=== PATIENT | female | born 1975 | race Caucasian/White ===

== ENCOUNTER → 2017-06-27 10:28 | Outpatient (CLI) | payer SELFPAY ==
[2017-06-27 11:35] LABS: Carbamazepine (Tegretol) 8.5 ug/mL (4.0-12.0); Phenytoin (Dilantin) Level 27.5 mL (10.0-20.0)
== END ==
PROVIDERS: Visit Provider Otolaryngology Otolaryngology/Facial Plastic Surgery
DX: Z01.812 Encounter for preprocedural laboratory examination (principal)
CPT/HCPCS: 36415; 80156; 80185

== ENCOUNTER → 2022-11-07 | Outpatient (CLI) | payer OTHER, SELFPAY ==
[2022-11-07 14:46] LABS: Absolute Neutrophil Count 2.9 X10^3/uL (2.0-7.7); Basophil# 0.03 X10^3/uL; Basophil% 0.6 % (0-1); Eosinophil# 0.03 X10^3/uL; Eosinophils% 0.6 % (0-5); Hematocrit 24.4 % (37-47); Hemoglobin 6.9 g/dL (12.0-15.0); Lymphocyte % 32.5 % (19-41); Mean Corp Hgb Conc 28.3 g/dL (32-36); Mean Corpuscular Volume 70.7 fL (81-99); Mean Platelet Vol. 10.1 fl (6.2-12.0); Monocyte# 0.31 X10^3/uL; Monocyte% 6.3 % (0-10); NRBC Flagged by Analyzer 0 % (0-5); Neutrophil # 2.94 X10^3/uL (2.7-7.7); Neutrophil % 59.6 % (47-70); Platelet Count 369 K/mm3 (150-450); RBC Distribution Width CV 17.4 % (11.6-14.6); RBC Distribution Width SD 43.9 fl (35.1-43.9); Red Blood Count 3.45 M/mm3 (4.2-5.4); White Blood Count 4.9 K/mm3 (4.4-11.0)
[2022-11-07 15:20] LABS: Estradiol 53.1 pg/mL; Follicle Stimulating Hormone 11.4 mIU/mL; Luteinizing Hormone 6.9 mIU/mL; Prolactin 6.6 ng/mL; T4 Free Direct 0.73 ng/dL (0.76-1.46)
[2022-11-07 15:24] LABS: hCG Titer Quant., Serum < 1 mIU/mL (1-3)
[2022-11-07 16:40] LABS: Ferritin 11 ng/mL (8-252)
== END | disposition home or self-care (01) ==
LOC: WOBLAB 13:55
PROVIDERS: Visit Provider Nurse Practitioner Women's Health
DX: N93.9 Abnormal uterine and vaginal bleeding, unspecified (principal)
CPT/HCPCS: 36415; 82670; 82728; 83001; 83002; 84146; 84439; 84443; 84702; 85025

== ENCOUNTER → 2024-11-30 | Outpatient (CLI) | payer OTHER, SELFPAY ==
--- OUTSIDE RECORDS SUMMARY | 2024-11-30 10:49 | XMS RPT_ITS | CCD ---
Author Organization [facility] Care Team Providers Care Asset Protection Manager Name Role Phone Yovanny Ct Attending Unavailable EDY PHELPS, DR ORLANDO Roberts Primary Care Unavailjeff LARA MD, PATEL Attending Unavailable EDY PHELPS, DR ORLANDO Roberts Primary Care Unavailjeff LARA MD, PATEL Attending Unavailable EDY PHELPS, DR ORLANDO Roberts Primary Care Unavailjeff HAYDEN MD, MIKA Consulting Unavailable MARCO PHELPS, PATEL Attending Unavailable MARCO PHELPS, PATEL Admitting Unavailable ORLANDO SNOW MD Unavailable ADAMA SNOW MD Unavailable Christian RN, Jagruti Unavailable Unavaila ble Winter KOROMA, Reina Unavailable Unavailable Letitia Perez Unavailable Unavailable JOSSELIN ADAME-KACEY Bryan Unavailable [phone] CONNOR KOROMA, CASSIE Unavailable Unavaila ble Unavailable Unavailable LUCILA JULIEN Primary Care Unavailable LUCILA JULIEN Attending Unavailable LUCILA JULIEN Admitting Unavailable [place] SHANNA, Regine Unavailable Unavailable JOSSELIN ADAME-KACEY Bryan Unavailable Unav ailable SNOW, ORLANDO T Primary Care Unavailable SNOW, ORLANDO T Consulting Unavailable SNOW, ORLANDO T Attending Unavailable SNOW, ORLANDO T Admitting Unavailable PROVIDER, UNKNOWN Consulting Unavailable PROVIDER, UNKNOWN Consulting Unavailable PROVIDER, UNKNOWN Consulting Unavailable BABAK ROLAND Primary Care Unavailable SNOW, ORLANDO T Consulting Unavailable MELQUIADES ROLANDY Admitting Unavailable BABAK ROLAND Attending Unavailable PROVIDER, UNKNOWN Consulting Unavailable PROVIDER, UNKNOWN Consulting Unavailable PROVIDER, UNKNOWN Consulting Unavailable ABDOUL FRENCH Primary Care Unavailable ABDOUL FRENCH Attending Unavailable SNOW, ORLANDO T Consulting Unavailable ABDOUL FRENCH Admitting Unavailable PROVIDER, UNKNOWN Consulting Unavailable PROVIDER, UNKNOWN Consulting Unavailable PROVIDER, UNKNOWN Consulting Unavailable BELINDA WILSON CNP Admitting Unavailab le BELINDA WILSON INSURANCE UNDERWRITING ASSISTANT Attending Unavailab le SNOW, ORLANDO T Consulting Unavailable BELINDA WILSON CNP Primary Care Unavailab le PROVIDER, UNKNOWN Consulting Unavailable PROVIDER, UNKNOWN Consulting Unavailable PROVIDER, UNKNOWN Consulting Unavailable ABDOUL FRENCH Attending Unavailable ABDOUL FRENCH Admitting Unavailable SNOW, ORLANDO T Consulting Unavailable ABDOUL FRENCH Primary Care Unavailable PROVIDER, UNKNOWN Consulting Unavailable PROVIDER, UNKNOWN Consulting Unavailable PROVIDER, UNKNOWN Consulting Unavailable ABDOUL FRENCH Primary Care Unavailable ABDOUL FRENCH Attending Unavailable SNOW, ORLANDO T Consulting Unavailable ABDOUL FRENCH Admitting Unavailable PROVIDER, UNKNOWN Consulting Unavailable PROVIDER, UNKNOWN Consulting Unavailable PROVIDER, UNKNOWN Consulting Unavailable ABDOUL FRENCH Primary Care Unavailable ABDOUL FRENCH Attending Unavailable SNOW, ORLANDO T Consulting Unavailable ABDOUL FRENCH Admitting Unavailable PROVIDER, UNKNOWN Consulting Unavailable PROVIDER, UNKNOWN Consulting Unavailable PROVIDER, UNKNOWN Consulting Unavailable BERTHAANITABELINDA DELCID INSURANCE UNDERWRITING ASSISTANT Attending Unavailab le STEVE, BELINDA GRIGGS Primary Care Unavailab le BELINDA WILSON CNP Admitting Unavailab le SNOW, ORLANDO T Consulting Unavailable PROVIDER, UNKNOWN Consulting Unavailable PROVIDER, UNKNOWN Consulting Unavailable PROVIDER, UNKNOWN Consulting Unavailable LUCILA JULIEN Attending Unavailable LUCILA JULIEN Admitting Unavailable SNOW, ORLANDO T Consulting Unavailable SNOW, ORLANDO T Referring Unavailable LUCILA JULIEN Primary Care Unavailable PROVIDER, UNKNOWN Consulting Unavailable PROVIDER, UNKNOWN Consulting Unavailable PROVIDER, UNKNOWN Consulting Unavailable LOLI PHELPS, BIJAN Denise Unavailable [phone] Boaz Baker MD Attending Provider Dr. Orlando Snow MD Primary Care Provider Dr. Boaz Baker MD Referring Provider [phone] Medications Current Medications Medication Drug Class(es) Dates Sig (Normalized) Sig (Original) carBAMazepine 200 mg oral tablet (17 sources) Mood Stabilizer Start: 11-30-2024 take 4 tablets by mouth in the evening Carbamazepine 200 mg tablet Active 200 mg PO .COMPLEX November 30, 2024 12:00am 200 mg orally 3 tablets (600mg) in the morning and 4 tablets (800mg) in the evening; Start: 07-09-2024 TegretoL 200 m g tablet ; 3 (three) tablet two times daily for 60 days Quantity: 360 {Tablet} Refills: 2 Ordered: 09-Jul-2024 MD ORLANDO SNOW Start: 09-Jul-2024 Comments: generic take 3 tablets by [facility] twice daily TEGretol 200 MG Oral Tablet ; 600mg two times daily (200 MG) Comment on above: generic cholecalciferol 0.01 mg oral tablet (16 sources) Vitamin D Vitamin D3 10 mc g (400 unit) tablet ; (10 mcg (400 unit)) ferrous sulfate 325 mg oral tablet (17 sources) Start: 11-30-2024 take 1 tablet by mouth once daily Ferrous Sulfate (Ferosul) 325 mg (65 mg iron) tablet Active 325 mg PO daily November 30, 2024 12:00am Start: 05-12-2024 ferrous sulfat e 325 mg (65 mg iron) tablet ; 1 Tablet daily for 90 days Quantity: 90 {Tablet} Refills: 3 Ordered: 12-May-2024 MD ORLANDO SNOW Start: 12-May-2024 Start: 11-14-2023 ferrous sulfat e 325 mg (65 mg iron) tablet ; 1 Tablet daily for 90 days Quantity: 90 {Tablet} Refills: 2 Ordered: 14-Nov-2023 MD ORLANDO SNOW Start: 14-Nov-2023 Start: 05-09-2023 ferrous sulfat e 325 mg (65 mg iron) tablet ; 1 Tablet daily for 90 days Quantity: 90 {Tablet} Refills: 2 Ordered: 09-May-2023 MD ORLANDO SNOW Start: 09-May-2023 phenytoin sodium 100 mg extended release oral capsule (17 sources) Anti-epileptic Agent Start: 11-30-2024 take 3 tablets by mouth in the evening Phenytoin Sodium Extended 100 mg capsule Active 100 mg PO .COMPLEX November 30, 2024 12:00am 100 mg orally 2 tablets (200mg) in the morning and 3 tablets (300mg) in the evening; Start: 07-09-2024 Dilantin Exten ded 100 mg capsule ; 2 (two) capsule in am and 3 caps in at hs for 60 days Quantity: 300 {Capsule} Refills: 2 Ordered: 09-Jul-2024 MD ORLANDO SNOW Start: 09-Jul-2024 Comments: generic. take 3 capsules by m outh twice daily Dilantin 100 MG Oral Capsule ; 300mg two times daily (100 MG) Comment on above: generic. vitamin b12 0.1 mg oral tablet (16 sources) Vitamin B12 take 1 tablet by cat th once daily Vitamin B12 100 MCG Oral Tablet ; 1 daily (100 MCG) Completed/Discontinued Medications Medication Drug Class(es) Dates Sig (Normalized) Sig (Original) azithromycin 250 mg oral tablet (16 sources) Macrolide Antimicrobial Start: 03-19-2022 End: 03-24-2022 Azithromycin 250 MG Oral Tablet ; 2 (two) Tablet on day one, then 1 tablet daily for 4 days for 5 days Quantity: 6 {Tablet} Refills: 0 Ordered: 29-May-2022 KARY SCHWAB Start: 19-Mar-2022 End: 24-Mar-2022 Status: Inactive predniSONE 20 mg oral tablet (16 sources) Start: 03-19-2022 End: 03-23-2022 take 1 tablet by mouth once daily predniSONE 20 MG Oral Tablet ; 1 (one) Tablet daily for 4 days Quantity: 4 {Tablet} Refills: 0 Ordered: 29-May-2022 KARY SCHWAB Start: 19-Mar-2022 End: 23-Mar-2022 Status: Inactive promethazine hydrochloride 1.25 mg/ml oral solution (16 sources) Phenothiazine Start: 03-19-2022 End: 03-26-2022 take 5 mL by mouth four times daily as needed Promethazine HCl 6.25 MG/5ML Oral Syrup ; 5 Milliliter four times daily, as needed for 7 days Quantity: 140 {Milliliter} Refills: 0 Ordered: 29-May-2022 KARY SCHWAB Start: 19-Mar-2022 End: 26-Mar-2022 Status: Inactive Comments: Medication taken as needed. Comment on above: Medication taken as needed. Problems Active Problems Problem Classification Problem Date Documented Da te Episodic/Chronic Deficiency and other anemia (20 sources) Anemia; Translations: [Anemia, unspecified] 05-09-2023 Episodic Deficiency and other anemia (20 sources) Deficiency and other anemia 05-09-2023 Developmental disorders (1 source) Unspecified intellectual disabilities; Translations: [Unspecified intellectual disabilities] Onset: 08-30-2023 Chronic Epilepsy; convulsions (20 sources) Seizure disorder; Translations: [Epilepsy, unspecified, not intractable, without status epilepticus] Onset: 11-30-2023 05-09-2023 Chronic Fluid and electrolyte disorders (20 sources) Hypokalemia; Translations: [Hypokalemia] 05-29-2022 Episodic Other aftercare (20 sources) Post-discharge follow-up; Translations: [Encounter for follow-up examination after completed treatment for conditions other than malignant neoplasm] 11-15-2022 Episodic Other female genital disorders (1 source) Abnormal uterine and vaginal bleeding, unspecified; Translations: [Abnormal uterine and vaginal bleeding, unspecified] Onset: 11-09-2022 Chronic Other non-traumatic joint disorders (20 sources) Pain in right knee; Translations: [Pain in joint, lower leg] 05-12-2024 Episodic Other upper respiratory infections (20 sources) Upper respiratory infection; Translations: [Acute upper respiratory infection, unspecified] 03-19-2022 Episodic Unclassified (7 sources) [ADDITIONAL REASON] Knee pain - The onset of the knee pain has been acute and has been occurring in an intermittent pattern for 1 week. The knee pain involves the right knee. Note for Knee pain: pt was walking up stairs in the snow and has knee pain. 05-12-2024 Unclassified (3 sources) Knee pain - The onset of the knee pain has been acute and has been occurring in an intermittent pattern for 1 week. The knee pain involves the right knee. Note for Knee pain: pt was walking up stairs in the snow and has knee pain. 05-12-2024 Unclassified (6 sources) !Patient notification of lab results - Dr. Snow. The test(s) that you had done were/was a MRI (This shows that Luis A tore her ACL. I recommend she see a specialist. We will set up a referral for her in [place]). You should call our office if you have any questions. 05-30-2024 Past or Other Problems Problem Classification Problem Date Documented Date Episodic/Chronic Headache; including migraine (16 sources) Headache; including migraine 03-19-2022 Other aftercare (1 source) Other [facility] (current) drug therapy; Translations: [Other [facility] (current) drug therapy] Onset: 11-30-2023 Episodic Other nutritional; endocrine; and metabolic disorders (1 source) Unspecified lack of expected normal physiological development in childhood; Translations: [Unspecified lack of expected normal physiological development in childhood] Onset: 08-30-2023 Episodic Unclassified (10 sources) Seizure Disorder, Adult - The last clinic visit was 6 month(s) ago. Note for Seizure disorder: doing well. C/O dry mouth since hysterectomy in October. 05-09-2023 Unclassified (11 sources) Follow-up after Hospitalization - The diagnosis of abnormal uterine bleeding, uterus fibroid, and hysterectomy. Note for Follow-up after Hospitalization: Pt was admitted to [facility] on 11/07/22 and transferred to [facility] on 11/09/22. She had hysterectomy surgery on 11/10/22 and then discharged home. Pt is feeling good, but tired. Pt is following up at [place] on 11/26/22. No med changes. She is on some pain meds. [employer] horticulture professor noted labs showed hypothyroidism and recommended following up with family doctor. 11-15-2022 Unclassified (11 sources) [ADDITIONAL REASON] Transition into care - The patient is transitioning into care from a hospital and a summary of care was reviewed. 11-15-2022 Unclassified (16 sources) !Patient notification of lab results - Dr. Snow. The test(s) that you had done were/was blood work (Your blood count is stable since we last checked it in October, but there is still significant iron deficiency anemia present. I recommend taking two of your iron pills each day. (Hemoglobin was 8.8 last time and is now 9.0 - normal is 12. It was 5.6 when you were admitted to the hospital). Your other blood work looks ok.). You should call our office if you have any questions. 05-31-2022 Unclassified (16 sources) Weakness - Note for Weakness: Mother would like pt's blood count checked. Pt had a low Hgb last summer and had to have a blood transfusion. Pt seems lightheaded at times. 05-29-2022 Unclassified (7 sources) Seizure Disorder, Adult - Typical seizure symptoms include generalized motor seizure. Typical associated symptoms include altered mental status, while typical associated symptoms do not include bladder incontinence, bowel incontinence or amnesia for the seizure event. The seizures last for 2 minutes. The most recent seizure occurred month(s) ago (months ago. last 6 months have been good). Current treatment includes phenytoin (Dilantin). Note for Seizure disorder: Patient sees Neurologist 11/22/23 11-14-2023 Unclassified (6 sources) [ADDITIONAL REASON] Seizure Disorder, Adult - The last clinic visit was 6 month(s) ago. Note for Seizure disorder: doing well. C/O dry mouth since hysterectomy in October. 05-09-2023 Unclassified (5 sources) Transition into care - The patient is transitioning into care from a hospital and a summary of care was reviewed. 11-15-2022 Unclassified (5 sources) [ADDITIONAL REASON] Follow-up after Hospitalization - The diagnosis of abnormal uterine bleeding, uterus fibroid, and hysterectomy. Note for Follow-up after Hospitalization: Pt was admitted to [facility] on 11/07/22 and transferred to [facility] on 11/09/22. She had hysterectomy surgery on 11/10/22 and then discharged home. Pt is feeling good, but tired. Pt is following up at [place] on 11/26/22. No med changes. She is on some pain meds. [employer] horticulture professor noted labs showed hypothyroidism and recommended following up with family doctor. 11-15-2022 Unclassified (6 sources) [ADDITIONAL REASON] Seizure Disorder, Adult - Typical seizure symptoms include generalized motor seizure. Typical associated symptoms include altered mental status, while typical associated symptoms do not include bladder incontinence, bowel incontinence or amnesia for the seizure event. The seizures last for 2 minutes. The most recent seizure occurred month(s) ago (months ago. last 6 months have been good). Current treatment includes phenytoin (Dilantin). Note for Seizure disorder: Patient sees Neurologist 11/22/23 11-14-2023 Results Test Name Value Interpretation Reference Range Facility MR SHARATH AYALA RTon 05-21-2024 MR SHARATH AYALA RT [address] [address] Patient: LUIS A BASSETT Phone#: : [phone] Age: 48 Gender: F Pt. Type: Out Account: [id number] Location: 052 Ordering: ORLANDO SNOW Exam Date: 05/21/2024/10:06 Family Phys: Charge Code: [id number] Physician: Woods Order #: [id number] Dose#: PROCEDURE: MRI KNEE RT WITHOUT CONTRAST COMPARISON: None. INDICATIONS: Right knee pain TECHNIQUE: A complete multi-planar MRI was performed. FINDINGS: MEDIAL COMPARTMENT MEDIAL MENISCUS: Normal. No visible tear or significant degeneration. HYALINE CARTILAGE: Normal. No visible defect. BONES: Marrow edema of the posterior medial tibial plateau. There is no evidence of fracture. MCL AND MEDIAL CAPSULE: Abnormal signal and waviness of the posterior capsule consistent with tear. Abnormal signal posteriorly and medial to the gastrocnemius muscle raises possibility of rupture of popliteal cyst. LATERAL COMPARTMENT LATERAL MENISCUS: Normal. No visible tear or significant degeneration. HYALINE CARTILAGE: Normal. No visible defect. BONES: Normal. No marrow pathology, fracture, or significant arthropathy. LCL/POSTEROLAT. COMPLEX: Normal lateral collateral ligament, fascicles, lateral capsule and ligaments. ACL: There is thickening and abnormal signal the ACL particularly at the femoral attachment consistent with interstitial tear. PCL: Normal appearing ligament. MENISCOFEMORAL: Normal meniscofemoral ligaments. PATELLOFEMORAL: There is narrowing of the lateral patellofemoral joint. There is mild lateral subluxation. EFFUSION: Small joint effusion is present. OTHER: Negative. CONCLUSION: 1. There is marrow edema the posterior medial tibial plateau. Acute fracture is not visualized. 2. Interstitial tear of the ACL. 3. Abnormal signal medial to the gastrocnemius muscle, medial head suspicious for popliteal rupture. [place] [id number] Patient: LUIS A BASSETT Phone#: : [phone] Age: 48 Gender: F Pt. Type: Out Account: [id number] Location: 052 Ordering: ORLANDO SNOW Exam Date: 05/21/2024/10:06 Family Phys: Charge Code: [id number] Physician: Woods Order #: [id number] Dose#: Dictated by: Sameera Phillips MD on 05/22/2024 at 16:49 Approved by: Sameera Phillips MD on 05/22/2024 at 16:59 Normal [facility] Laboratory - Drug toxicology on 05-05-2024 carBAMazepine [Mass/Vol] 6.5 ug/ml Normal 4.0 - 12.0 ug/ml [facility], [facility].; [facility] Work Phone: TEGRETOL (CARBAMAZEPINE); TO [place] 05-05-2024 TEGRETOL 6.5 ug/ml Normal 4.0 - 12.0 [facility] Comment on above: Performed By: #### 2 [id number] #### [facility],[address] [place] [address] Laboratory - Drug toxicology on 11-30-2023 carBAMazepine [Mass/Vol] 3.9 ug/ml Abnormal 4.0 - 12.0 ug/ml [facility], [facility].; [facility] Work Phone: TEGRETOL (CARBAMAZEPINE); TO [place] 11-30-2023 TEGRETOL 3.9 ug/ml Low 4.0 - 12.0 [facility] Comment on above: Performed By: #### 2 [id number] #### [facility],[address] [place] [address] CBC + DIFFon 10-11-2023 ATY LYMP 0 % Normal [facility], [facility].; [facility] Work Phone: Comment on above: Performed By: #### 2 [id number] #### [facility],[address] [place], [place] [id number] BANDS 0 % Normal 0 - 5 % [facility] Work Phone: Comment on above: Performed By: #### 2 [id number] #### [facility],[address] [place], [place] [id number] Baso # 0.01 x10EE3/UL Normal 0.00 - 0.10 [facility] Comment on above: Performed By: #### 2 [id number] #### [facility],[address] [place], [place] [id number] Basophils/100 WBC (Bld) 0.3 % Normal 0.0 - 2.0 % [facility] Work Phone: Comment on above: Performed By: #### 2 [id number] #### [facility],[address] [place], [place] [id number] Basophils/100 WBC (Bld) 0.0 % Normal 0.0 - 2.0 % [facility] Work Phone: Comment on above: Performed By: #### 2 [id number] #### [facility],[address] [place] [id number] CBC + DIFF Normal [facility] Comment on above: Result Comment: CORRECTED REPORT CBC-COMPLETE BLOOD COUNT Performed By: #### 2 [id number] #### [facility],[address] [place] [id number] CELL COUNT 100 Normal [facility] Work Phone: Comment on above: Performed By: #### 2 [id number] #### [facility],[address] [place] [id number] EO 0.0 % Normal 0.0 - 4.0 % [facility] Work Phone: Comment on above: Performed By: #### 2 [id number] #### [facility],[address] [place] [id number] EO # 0.07 x10EE3/UL Normal 0.00 - 0.50 [facility] Comment on above: Performed By: #### 2 [id number] #### [facility],[address] [place], [place] [id number] Eosinophils/100 WBC (Bld) 1.6 % Normal 0.0 - 7.0 % [facility], [facility].; [facility] Work Phone: Comment on above: Performed By: #### 2 [id number] #### [facility],[address] [place] [address] ERROR DUE TO MANUAL DIFF Normal [facility] Work Phone: Comment on above: Performed By: #### 2 [id number] #### [place] [phone] Erythrocyte distribution width (RBC) [Ratio] 16.6 % Abnormal 12.0 - 15.6 % [facility] Work Phone: Comment on above: Performed By: #### 2 [id number] #### [place] [id number] Hematocrit (Bld) [Volume fraction] 34.4 % Normal 34.0 - 46.0 % [facility] [employer] [facility] Work Phone: Comment on above: Performed By: #### 2 89953 #### [place] [phone] Hemoglobin (Bld) [Mass/Vol] 10.7 g/dL Abnormal 12.0 - 16.0 g/dL [facility] [place] [facility] Work Phone: Comment on above: Performed By: #### 2 [id number] #### [facility],[address] [place] [address] Lymph # 1.29 x10EE3/UL Normal 0.80 - 2.80 [facility] Comment on above: Performed By: #### 2 [id number] #### [facility],[address] [place] [address] Lymphocytes/100 WBC (Bld) 30.5 % Normal 20.0 - 45.0 % [facility] [employer] [facility] [place] - [facility] [employer] [facility] Work Phone: Comment on above: Performed By: #### 2 [id number] #### [facility],[address] [place] [address] Lymphocytes/100 WBC (Bld) 30 % Normal 20 - 40 % [facility] [facility] [employer] [facility] [employer] [facility] Work Phone: Comment on above: Performed By: #### 2 73228 #### [facility],[address] [place] [address] MANUAL DIFF SEE BELOW Normal [facility] [employer] [facility] [place] - [facility] [employer] [facility] Work Phone: Comment on above: Performed By: #### 2 [id number] #### [facility],[address] [place] [address] MCH (RBC) [Entitic mass] 22 pg Abnormal 27 - 33 pg [facility] [employer] [facility] [place] [facility] [employer] [facility] Work Phone: Comment on above: Performed By: #### 2 [id number] #### [facility],[address] [place] [address] MCHC 31 X10 3 Low 32 - 36 [facility] Comment on above: Performed By: #### 2 79926 #### [facility],[address] [place] [address] MCV (RBC) [Entitic vol] 70 fL Abnormal 80 - 99 fL [facility] [employer] [facility] [employer] [place] [facility], [employer]. Work Phone: Comment on above: Performed By: #### 2 81835 #### [facility],[address] [place] [address] META 0 % Normal 0 - 1 % [facility], [employer] [facility] [employer] [facility] Work Phone: Comment on above: Performed By: #### 2 65541 #### [facility],[address] [place] [address] Metamyelocytes/100 WBC (Bld) 0 % Normal [facility] [place] [facility] [employer] [facility], [employer]. Work Phone: Comment on above: Performed By: #### 2 92549 #### [facility],[address] [place] [address] MICROCYTES 2+ Normal [facility] [place] [employer] [facility] [employer] [facility], [employer]. Work Phone: Comment on above: Result Comment: ==== FOLLOWING RESULTS REPORTED IN ERROR LYMPH 3 L <-- *Previously reported in error [id number]. . .M MONOS 0 <-- *Previously reported in error [id number]. . .M Performed By: #### 2 [id number] #### [facility],[address] [place] [address] [place] # 0.24 x10EE3/UL Normal 0.20 - 1.00 [facility] [facility] Comment on above: Performed By: #### 2 [id number] #### [facility],[address] [place] [address] MONOS 3 % Normal 0 - 8 % [facility] Work Phone: Comment on above: Performed By: #### 2 58278 #### [facility],[address] [place] [address] 95088 MONOS % 5.6 % Normal 0.0 - 10.0 [facility] Comment on above: Performed By: #### 2 79032 #### [facility],[address] [place] [address] 09229 Morphology Blake (Bld) [Interp] SEE BELOW Normal [facility] Work Phone: Comment on above: Performed By: #### 2 97958 #### [facility],[address] [place] [address] 59882 Neut # 2.63 x10EE3/UL Normal 1.50 - 7.10 [facility] Comment on above: Performed By: #### 2 16175 #### [facility],[address] [place] [address] 88307 Neutrophils/100 WBC (Bld) 62.0 % Normal 46.0 - 76.0 % [facility] Work Phone: Comment on above: Performed By: #### 2 47677 #### [facility],[address] [place] [address] 53211 NRBC 0 /100 Normal [facility] Work Phone: Comment on above: Performed By: #### 2 46152 #### [facility],[address] [place] [address] 18782 PLATELET 238 x10EE3/UL Normal 150 - 450 [facility] Comment on above: Performed By: #### 2 60781 #### [facility],[address] [place] [address] Platelet mean volume (Bld) [Entitic vol] 9.9 fL Normal 6.6 - 10.5 fL [facility].; [facility], [employer]. Work Phone: Comment on above: Result Comment: AUTO MATED DIFFERENTIAL Performed By: #### 2 79036 #### [facility],[address] [place] [address] PLT EST NORMAL Normal [facility].; [facility] Work Phone: Comment on above: Performed By: #### 2 96781 #### [facility],[address] [place] [address] RBC 4.91 x 10EE6/UL Normal 4.10 - 5.30 [facility] Comment on above: Performed By: #### 2 63563 #### [facility],[address] [place] [address] SEGS 67 % Normal 50 - 70 % [facility].; [facility] Work Phone: Comment on above: Performed By: #### 2 83954 #### [facility],[address] [place] [address] WBC 4.3 x 10EE3/UL Low 4.5 - 10.8 [facility] Comment on above: Performed By: #### 2 64712 #### [facility],[address] [place], [place] [id number] OTHER 0 Normal [facility].; [facility] Work Phone: Comment on above: Performed By: #### 2 47791 #### [facility],[address] [place] [address] CMP with eGFRon 10-11-2023 AGE 47 years Normal [facility] Comment on above: Performed By: #### 2 62875 #### [facility],[address] [place] [address] Albumin [Mass/Vol] 3.5 g/dL Normal 3.4 - 5.0 g/dL [facility], [facility].; [facility] Work Phone: Comment on above: Performed By: #### 2 12788 #### [facility],[address] [place] [address] Albumin/Globulin [Mass ratio] 0.9 {ratio} Normal 0.9 - 1.6 [facility] Comment on above: Performed By: #### 2 12041 #### [facility],[address] [place] [address] ALK PHOS 105 U/L Normal 46 - 116 U/L [facility], [facility].; [facility] Work Phone: Comment on above: Performed By: #### 2 22207 #### [facility],[address] [place] [address] 68111 ALT [Catalytic activity/Vol] 21 U/L Normal 16 - 63 U/L [facility], [facility].; [facility] Work Phone: Comment on above: Performed By: #### 2 03609 #### [facility],[address] [place] [address] 10552 Anion gap [Moles/Vol] 12 mmol/L Normal 10 - 2 0 mmol/L [facility] Work Phone: Comment on above: Performed By: #### 2 03347 #### [facility],[address] [place], [place] [id number] AST [Catalytic activity/Vol] 13 U/L Normal 13 - 39 U/L [facility] Work Phone: Comment on above: Performed By: #### 2 18747 #### [facility],[address] [place] [address] 55323 B/C RATIO 38 ratio High 0 - 30 [facility] Comment on above: Performed By: #### 2 92982 #### [facility],[address] [place] [address] 69172 Bilirubin [Mass/Vol] 0.2 mg/dL Normal 0.2 - 1 .0 mg/dL [facility], [facility].; [facility] Work Phone: Comment on above: Performed By: #### 2 55801 #### [facility],[address] [place] [address] 27051 Calcium [Mass/Vol] 8.6 mg/dL Normal 8.5 - 10. 1 mg/dL [facility], [facility].; [facility] Work Phone: Comment on above: Performed By: #### 2 03028 #### [address] [address] Chloride [Moles/Vol] 109 mmol/L Abnormal 98 - 10 7 mmol/L [facility], [facility].; [facility] Work Phone: Comment on above: Performed By: #### 2 08579 #### [facility],[address] [place] [address] 09707 CMP with eGFR Normal [facility] Comment on above: Result Comment: COMP REHENSIVE METABOLIC PANEL Performed By: #### 2 72490 #### [address] [address] CO2 [Moles/Vol] 25.3 mmol/L Normal 21.0 - 32.0 mmol/L [facility], [facility].; [facility] Work Phone: Comment on above: Performed By: #### 2 32146 #### [facility],[address] [place] [address] 30468 Creatinine [Mass/Vol] 0.48 mg/dL Abnormal 0.55 - 1.02 mg/dL [facility].; [facility], [employer]. Work Phone: Comment on above: Performed By: #### 2 44597 #### [facility],[address] [place], [place] [address] GFR/1.73 sq M.predicted among non-blacks MDRD (S/P/Bld) [Vol rate/Area] mL/min/{1.73_m2} Normal 60 - 999 [facility] Comment on above: Performed By: #### 2 78349 #### [facility],[address] [place], [place] [address] Result Comment: ACCO RDING TO THE NATIONAL KIDNEY DISEASE EDUCATION PROGRAM(NKDE), A NORMAL eGFR IS A VALUE GREATER THAN OR EQUAL TO 60 ML/MIN/1.73 SQ METERS. CHRONIC KIDNEY DISEASE: <60mL/MIN/1.73 SQ METERS KIDNEY FAILURE: <15mL/MIN/1.73 SQ METERS THIS TEST SHOULD ONLY BE USED FOR PATIENTS 18 YEARS OF AGE AND OLDER. Globulin (S) [Mass/Vol] 3.8 g/dL Normal 1.5 - 3.8 g/dL [facility].; [facility], [employer]. Work Phone: Comment on above: Performed By: #### 2 96041 #### [facility],[address] [place] [address] 68284 Glucose [Mass/Vol] 123 mg/dL Abnormal 74 - 106 mg/dL [facility].; [facility], [employer]. Work Phone: Comment on above: Performed By: #### 2 88376 #### [facility],[address] [place] [address] 58104 Potassium [Moles/Vol] 3.6 mmol/L Normal 3.5 - 5.1 mmol/L [facility], [facility]. Work Phone: Comment on above: Performed By: #### 2 91477 #### [facility],[address] [place] [address] 82870 Protein [Mass/Vol] 7.3 g/dL Normal 6.4 - 8.2 g/dL [facility].; [facility] Work Phone: Comment on above: Performed By: #### 2 87933 #### [facility],[address] [place] [address] 20022 Sodium [Moles/Vol] 143 mmol/L Normal 136 - 145 mmol/L [facility].; [facility], [facility]. Work Phone: Comment on above: Performed By: #### 2 59942 #### [facility],[address] [place] [address] 94779 Urea nitrogen [Mass/Vol] 18 mg/dL Normal 7 - 18 mg/dL [facility].; [facility] Work Phone: Comment on above: Performed By: #### 2 65707 #### [address] [address] DILANTIN TOTALon 10-11-2023 DILANTIN 10.4 ug/ml Normal 10.0 - 20.0 [facility] Comment on above: Performed By: #### 2 12681 #### [facility],[address] [place] [address] 65561 Laboratory - Chemistry and C hemistry - challengeon 10-11-2023 Albumin [Mass/Vol] 0.9 g/dL Normal 0.9 - 1.6 [facility], [facility].; [facility], [facility]. Work Phone: GFR/1.73 sq M.predicted among blacks MDRD (S/P/Bld) [Vol rate/Area] mL/min/{1.73_m2} Normal 60 - 999 {ML/MINUTE} [facility] HospitalMeet[facility]; [facility] Center[facility] Work Phone: GFR/1.73 sq M.predicted MDRD (S/P/Bld) [Vol rate/Area] mL/min/{1.73_m2} Normal 60 - 999 {ML/MINUTE} [facility].; [facility]. Work Phone: Urea nitrogen/Creatinine [Mass ratio] 38 {ratio} Abnormal 0 - 30 {ratio} [facility] HospitalMeet[facility]; [facility] Center[facility] Work Phone: Laboratory - Drug toxicology on 10-11-2023 carBAMazepine [Mass/Vol] 3.0 ug/ml Abnormal 4.0 - 12.0 ug/ml [facility]Meet[facility]; [facility] Center[facility]. Work Phone: Phenytoin [Mass/Vol] 10.4 ug/mL Normal 10.0 - 20.0 ug/ml [facility] HospitalMeet[facility]; [facility] Center[facility]. Work Phone: Laboratory - Hematology and Cell countson 10-11-2023 Basophils (Bld) [#/Vol] 0.01 {x10EE3/UL} Normal 0.00 - 0.10 {x10EE3/UL} [facility] HospitalMeet[facility]; [facility] Center[facility]. Work Phone: Eosinophils (Bld) [#/Vol] 0.07 {x10EE3/UL} Normal 0.00 - 0.50 {x10EE3/UL} [facility] HospitalTim[facility]; [facility] Center[facility] Work Phone: Lymphocytes (Bld) [#/Vol] 1.29 {x10EE3/UL} Normal 0.80 - 2.80 {x10EE3/UL} [facility].; [facility]. Work Phone: MCHC (RBC) [Mass/Vol] 31 {X10_3} Abnormal 32 - 3 6 {X10_3} [facility].; [facility]. Work Phone: Monocytes (Bld) [#/Vol] 0.24 {x10EE3/UL} Normal 0.20 - 1.00 {x10EE3/UL} [facility].; [facility] Center[facility]. Work Phone: Monocytes/100 WBC (Bld) 5.6 % Normal 0.0 - 10.0 % [facility].; [facility]. Work Phone: Neutrophils (Bld) [#/Vol] 2.63 {x10EE3/UL} Normal 1.50 - 7.10 {x10EE3/UL} [facility].; [facility]. Work Phone: Platelets (Bld) [#/Vol] 238 {x10EE3/UL} Normal 150 - 450 {x10EE3/UL} [facility] [employer] [facility].; [facility] CenterVan[facility] Coverage [facility]. Work Phone: RBC (Bld) [#/Vol] 4.91 {x_10EE6/UL} Normal 4.10 - 5.30 {x_10EE6/UL} [facility].; [facility]. Work Phone: WBC (Bld) [#/Vol] 4.3 {x_10EE3/UL} Abnormal 4.5 - 10.8 {x_10EE3/UL} [facility] [employer] [facility].; [facility] Center[facility]. Work Phone: No Panel Informationon 10-10 AGE 47 {years} Normal [facility].; [facility] CenterVan[facility] Coverage [facility]. Work Phone: CBC + DIFF Normal [facility].; [facility] CenterVan[facility] Cover[facility]. Work Phone: CMP with eGFR Normal [facility].; [facility] CenterVan[facility] Coverage [facility]. Work Phone: TEGRETOL (CARBAMAZEPINE); TO [employer] 10-11-2023 TEGRETOL 3.0 ug/ml Low 4.0 - 12.0 [facility] Comment on above: Performed By: #### 2 04719 #### [place] [address] DILANTIN TOTALon 09-06-2023 DILANTIN 10.9 ug/ml Normal 10.0 - 20.0 [facility] Comment on above: Performed By: #### 2 72503 #### [facility],[address] [place] [address] Laboratory - Drug toxicology on 09-06-2023 Phenytoin [Mass/Vol] 10.9 ug/mL Normal 10.0 - 20.0 ug/ml [facility].; [facility]. Work Phone: EMERGENCY REPORTon 4 EMERGENCY REPORT [facility] EMERGENCY ROOM REPORT NAME ACCOUNT SEX AGE ADMIT DISCHARGE PT MED. RECORD# NUMBER DATE DATE TYPE LUIS A BASSETT [id number] F 47 08/30/23 08/30/23 3 [id number] ROOM: ER DATE OF : 1975 DICTATING PHYSICIAN: Simone Park TIME SEEN: 1400 hours. HISTORY OF PRESENT ILLNESS: This is a 38-year-old white female with a history of a seizure disorder. She did have a seizure today and was brought here for an evaluation. The duration of this seizure, according to bystanders, was less than 5 minutes. Since then, the patient has complained of a mild diffuse generalized headache. She states she has been taking her medications, and her parents confirm that. The patient does see [facility] for her seizure disorder. PAST MEDICAL HISTORY: The patient has a past medical history of MR/DD and seizure disorder. ALLERGIES: No known drug allergies. SOCIAL HISTORY: She is not a smoker. She denies any alcohol or drug use. REVIEW OF SYSTEMS: She denies any fevers, sweats or chills. She denies any chest pain, shortness of breath, cough, sputum, wheezing, abdominal pain, nausea, vomiting, diarrhea, or constipation. She does complain of a mild diffuse generalized headache. She denies any neck or back pain, joint pain, skin rash or swelling. Further review of systems is negative. PHYSICAL EXAMINATION: VITAL SIGNS: Temperature is 98.4, pulse 96, respirations 17, blood pressure 169/116, pulse oximetry 98% on room air, and weight 160 pounds. GENERAL: The patient is awake, alert and oriented to name and place. She is somewhat disoriented to time, but she is pleasant and cooperative, looking about the room, smiling. HEENT: Head appears atraumatic. Pupils are equal and reactive to light. Red reflexes are intact bilaterally. Extraocular muscles are intact. No conjunctival injection. NOSE: Nose exhibits no rhinorrhea or epistaxis. MOUTH: Mucous membranes are moist. Teeth are intact. NECK: Neck is supple. Trachea is midline. No JVD or lymphadenopathy. No posterior cervical tenderness. No nuchal rigidity. LUNGS: Lungs are clear to auscultation bilaterally. No adventitious sounds are noted. No accessory muscle use is noted. CV: Heart rate and rhythm are regular. No murmur noted. ABDOMEN: Abdomen is soft and nontender with normoactive bowel sounds x4 quadrants. No guarding or rigidity. EXTREMITIES: No edema or cyanosis. Peripheral pulses are intact. The patient does move all 4 extremities strong and symmetric. SKIN: Skin is warm and dry. No diaphoresis or rash. NEUROLOGIC: Neurologic examination Page 1 of 2 LUIS A BASSETT Emergency Room Report LUIS A BASSETT : 1975 shows the patient to be awake, alert, looking about the room and smiling. She is oriented to name and place. She is somewhat mildly disoriented to time. Normal speech for her history of MR/DD. No facial droop. No slurred speech. No conversational dyspnea. DIAGNOSTIC DATA: CT scan of the brain showed no appreciable acute intracranial abnormality. White count was 5.05 with a hemoglobin of 11.93, hemoglobin 36, and platelet count 246,000. Sodium was 138, potassium 3.7, chloride 101, CO2 of 26.4, BUN 10, creatinine 0.49, and glucose 127. AST is 28, ALT 24, alkaline phosphatase 121, and total bilirubin 0.2. Urinalysis showed 0-5 white cells and no bacteria. Specific gravity is 1.01. Her Dilantin and Tegretol levels did come back subtherapeutic. EMERGENCY DEPARTMENT COURSE AND TREATMENT: I did give the patient Dilantin 1 gram IV here. She had already taken her oral Tegretol and Dilantin here today, but I also gave her an additional 600 mg of Tegretol here p.o. The patient does follow with [facility]. The family did tell me that sometimes some of the off-brand Dilantin medications do cause the patient's therapeutic levels to drop. They had tried to get the non-generic form of the medication this past time, but it was not available so the [facility] will [facility] and the pharmacy about getting her old form of Dilantin back. Otherwise, I felt that the patient clinically looked very good here at discharge and she could go home for outpatient follow-up with [facility]. The parents at the bedside are comfortable with that. I did, at this point, suggest that they continue her Dilantin and Tegretol as already prescribed, and then we will [facility]he[facility] those [facility] in about a week and compare those levels to what we got today and then decide with her neurologist if any medication dosing changes are going to be indicated. The patient was discharged in a clinically stable condition. [facility]5 days. If the patient's symptoms become worse or any other problems develop, return here to the Emergency Department. The patient was discharged in an improved, clinically stable condition. Nurse's notes reviewed. DIAGNOSES: 1. Seiz (more content not included)... Normal [facility] CBC + DIFFon 08-31-2023 ANISO 1+ Normal [facility] Comment on above: Performed By: #### 2 25377 #### [facility],[address] [place] [address] Baso # 0.01 x10EE3/UL Normal 0.00 - 0.10 [facility] Comment on above: Performed By: #### 2 24403 #### [facility],[address] [place] [address] Basophils/100 WBC (Bld) 0.3 % Normal 0.0 - 2.0 [facility] Comment on above: Performed By: #### 2 19539 #### [facility],[address] [place] [address] CBC + DIFF Normal [facility] Comment on above: Result Comment: CBC- COMPLETE BLOOD COUNT Performed By: #### 2 13793 #### [facility],[address] [place] [address] EO # 0.05 x10EE3/UL Normal 0.00 - 0.50 [facility] Comment on above: Performed By: #### 2 62155 #### [facility],[address] [place] [address] Eosinophils/100 WBC (Bld) 0.9 % Normal 0.0 - 7.0 [facility] Comment on above: Performed By: #### 2 74640 #### [facility],[address] [place] [address] Erythrocyte distribution width (RBC) [Ratio] 17.2 % High 12.0 - 15.6 [facility] Comment on above: Performed By: #### 2 79153 #### [facility],[address] [place] [address] Hematocrit (Bld) [Volume fraction] 36.0 % Normal 34.0 - 46.0 [facility] Comment on above: Performed By: #### 2 93877 #### [facility],[address] [place] [address] Hemoglobin (Bld) [Mass/Vol] 11.9 g/dL Low 12.0 - 16.0 [facility] Comment on above: Performed By: #### 2 77507 #### [facility],[address] [place] [address] 79592 Lymph # 1.11 x10EE3/UL Normal 0.80 - 2.80 [facility] Comment on above: Performed By: #### 2 45627 #### [facility],[address] [place] [address] Lymphocytes/100 WBC (Bld) 21.9 % Normal 20.0 - 45.0 [facility] Comment on above: Performed By: #### 2 43955 #### [facility],[address] [place] [address] MANUAL DIFF N/A Normal [facility] Comment on above: Performed By: #### 2 53060 #### [facility],[address] [place] [address] MCH (RBC) [Entitic mass] 23 pg Low 27 - 33 [facility] Comment on above: Performed By: #### 2 76279 #### [facility],[address] [place] [address] MCHC 33 X10 3 Normal 32 - 36 [facility] Comment on above: Performed By: #### 2 61966 #### [facility],[address] [place], [place] [id number] MCV (RBC) [Entitic vol] 69 fL Low 80 - 99 [facility] Comment on above: Performed By: #### 2 65323 #### [facility],[address] [place], [place] [id number] MICROCYTES 2+ Normal [facility] Comment on above: Performed By: #### 2 60838 #### [facility],[address] [place] [address] 52297 Rock # 0.32 x10EE3/UL Normal 0.20 - 1.00 [facility] Comment on above: Performed By: #### 2 47711 #### [facility],[address] [place], [place] [id number] MONOS % 6.3 % Normal 0.0 - 10.0 [facility] Comment on above: Performed By: #### 2 08644 #### [facility],[address] [place], [place] [id number] Morphology Blake (Bld) [Interp] SEE BELOW Normal [facility] Comment on above: Performed By: #### 2 90544 #### [facility],[address] [place] [address] Neut # 3.57 x10EE3/UL Normal 1.50 - 7.10 [facility] Comment on above: Performed By: #### 2 59615 #### [facility],[address] [place] [address] Neutrophils/100 WBC (Bld) 70.7 % Normal 46.0 - 76.0 [facility] Comment on above: Performed By: #### 2 22649 #### [facility],[address] [place] [address] PLATELET 247 x10EE3/UL Normal 150 - 450 [facility] Comment on above: Performed By: #### 2 52761 #### [facility],[address] [place] [address] Platelet mean volume (Bld) [Entitic vol] 9.7 fL Normal 6.6 - 10.5 [facility] Comment on above: Result Comment: AUTO MATED DIFFERENTIAL Performed By: #### 2 89110 #### [facility],[address] [place], [place] [id number] PLT EST NORMAL Normal [facility] Comment on above: Performed By: #### 2 24660 #### [place] [address] RBC 5.24 x 10EE6/UL Normal 4.10 - 5.30 [facility] Comment on above: Performed By: #### 2 71297 #### [facility],[address],[place] [address] WBC 5.1 x 10EE3/UL Normal 4.5 - 10.8 [facility] Comment on above: Performed By: #### 2 78205 #### [facility],[address] [place] [address] 23928 CMP with eGFRon 08-31-2023 AGE 47 years Normal [facility] Comment on above: Performed By: #### 2 39574 #### [facility],[address] [place] [address] [id number] Albumin [Mass/Vol] 3.8 g/dL Normal 3.4 - 5.0 [facility] Comment on above: Performed By: #### 2 36092 #### [facility],[address] [place] [address] 29639 Albumin/Globulin [Mass ratio] 0.9 {ratio} Normal 0.9 - 1.6 [facility] Comment on above: Performed By: #### 2 22925 #### [facility],[address] [place] [address] 48174 ALK PHOS 121 U/L High 46 - 116 [facility] Comment on above: Performed By: #### 2 89500 #### [facility],[address] [place] [address] 12848 ALT [Catalytic activity/Vol] 24 U/L Normal 16 - 63 [facility] Comment on above: Performed By: #### 2 98336 #### [facility],[address] [place] [address] 24760 Anion gap [Moles/Vol] 14 mmol/L Normal 10 - 20 [facility] Comment on above: Performed By: #### 2 56450 #### [facility],[address] [place] [address] 47484 AST [Catalytic activity/Vol] 28 U/L Normal 13 - 39 [facility] Comment on above: Performed By: #### 2 41900 #### [facility],[address] [place], [place] [id number] B/C RATIO 20 ratio Normal 0 - 30 [facility] Comment on above: Performed By: #### 2 88612 #### [facility],[address] [place] [address] 14989 Bilirubin [Mass/Vol] 0.2 mg/dL Normal 0.2 - 1.0 [facility] Comment on above: Performed By: #### 2 67406 #### [facility],[address] [place], [place] [address] Calcium [Mass/Vol] 8.7 mg/dL Normal 8.5 - 10.1 [facility] Comment on above: Performed By: #### 2 81312 #### [facility],[address] [place], [place] [address] Chloride [Moles/Vol] 101 mmol/L Normal 98 - 107 [facility] Comment on above: Performed By: #### 2 99798 #### [facility],[address] [place], [place] [address] CMP with eGFR Normal [facility] Comment on above: Result Comment: COMP REHENSIVE METABOLIC PANEL Performed By: #### 2 24888 #### [facility],[address] [place] [address] 10625 CO2 [Moles/Vol] 26.4 mmol/L Normal 21.0 - 32.0 [facility] Comment on above: Performed By: #### 2 15929 #### [facility],[address] [place] [address] 14444 Creatinine [Mass/Vol] 0.49 mg/dL Low 0.55 - 1.02 [facility] Comment on above: Performed By: #### 2 82203 #### [facility],[address] [place], [place] [address] eGFR 137 ML/MINUTE Normal 60 - 999 [facility] Comment on above: Performed By: #### 2 37669 #### [facility],[address] [place] [address] 21217 eGFR(AA) 166 ML/MINUTE Normal 60 - 999 [facility] Comment on above: Result Comment: ACCO RDING TO THE NATIONAL KIDNEY DISEASE EDUCATION PROGRAM(NKDE), A NORMAL eGFR IS A VALUE GREATER THAN OR EQUAL TO 60 ML/MIN/1.73 SQ METERS. CHRONIC KIDNEY DISEASE: <60mL/MIN/1.73 SQ METERS KIDNEY FAILURE: <15mL/MIN/1.73 SQ METERS THIS TEST SHOULD ONLY BE USED FOR PATIENTS 18 YEARS OF AGE AND OLDER. Performed By: #### 2 98870 #### [facility],[address] [place] [address] 37525 Globulin (S) [Mass/Vol] 4.1 g/dL High 1.5 - 3.8 [facility] Comment on above: Performed By: #### 2 60106 #### [address] [address] Glucose [Mass/Vol] 127 mg/dL High 74 - 106 [facility] Comment on above: Performed By: #### 2 06068 #### [facility],[address] [place] [address] 18583 Potassium [Moles/Vol] 3.7 mmol/L Normal 3.5 - 5.1 [facility] Comment on above: Performed By: #### 2 76854 #### [facility],[address] [place] [address] 77737 Protein [Mass/Vol] 7.9 g/dL Normal 6.4 - 8.2 [facility] Comment on above: Performed By: #### 2 77693 #### [facility],[address] [place] [address] 07881 Sodium [Moles/Vol] 138 mmol/L Normal 136 - 145 [facility] Comment on above: Performed By: #### 2 17676 #### [address] [address] Urea nitrogen [Mass/Vol] 10 mg/dL Normal 7 - 18 [facility] Comment on above: Performed By: #### 2 82455 #### [facility],[address] [place] [address] BRAIN W/O CONTRASTon 05 CT BRAIN W/O CONTRAST [address] [address] Patient: LUIS A BASSETT Phone#: : 1984 Age: 38 Gender: F Pt. Type: ER Account: [id number] Location: Ordering: LUCILA JULIEN Exam Date: 08/30/202316:54 Family Phys: Charge Code: [id number] Physician: Woods Order #: [id number] Dose#: [id number] PROCEDURE: CT BRAIN WITHOUT CONTRAST COMPARISON: None. INDICATIONS: Seizure. TECHNIQUE: CT images were obtained without contrast material. All CT scans at this facility use dose modulation, iterative reconstruction, and/or weight based dosing when appropriate to reduce radiation dose to as low as reasonably achievable. IV CONTRAST: No IV contrast used,0ml TOTAL DOSE: 52.30 CTDIvol(mGy) FINDINGS: CEREBRUM: No edema, hemorrhage, mass, or inappropriate atrophy. CEREBELLUM: No edema, hemorrhage, mass, or inappropriate atrophy. BRAINSTEM: No edema, hemorrhage, mass, or inappropriate atrophy. CSF SPACES: Ventricles, cisterns, and sulci are appropriate for age. No hydrocephalus, subarachnoid hemorrhage, or mass. SKULL: Hyperostosis of the skull, this can be seen with long-term phenytoin use, correlate with medication history. SINUSES: Opacification of left posterior ethmoid air cell. ORBITS: Limited views are unremarkable. OTHER: Atherosclerotic calcifications of cavernous carotid arteries. There is material in the right middle ear adjacent to the ossicles. There is small amount of material in the left middle ear. There is scarring in the high left parietal scalp likely secondary to prior surgical intervention. CONCLUSION: 1. No appreciable acute intracranial abnormality. Note: An acute ischemic event may not be initially evident on CT. 2. Material right middle ear adjacent to the ossicles. Differential includes, but is not limited to otitis media versus cholesteatoma. Recommend further evaluation. Continued Report - Page 2 of 2 Patient: LUIS A BASSETT Phone#: : 1984 Age: 38 Gender: F Pt. Type: ER Account: [id number] Location: Ordering: LUCILA JULIEN Exam Date: 08/30/2023/16:54 Family Phys: Charge Code: [id number] Physician: Woods Order #: [id number] Dose#: [id number] 3. Small amount of material in the left middle ear, differentials includes, but is not limited to otitis media versus cholesteatoma. Dictated by: Fariha Leyva MD on 08/30/2023 at 17:12 Approved by: Fariha Leyva MD on 08/30/2023 at 17:27 Normal [facility] DILANTIN TOTALon 08-31-2023 DILANTIN 3.7 ug/ml Low 10.0 - 20.0 [facility] Comment on above: Performed By: #### 2 14876 #### [facility],[address] [place], [place] [address] TEGRETOL (CARBAMAZEPINE); TO Catalino 08-31-2023 TEGRETOL 2.7 ug/ml Low 4.0 - 12.0 [facility] Comment on above: Performed By: #### 2 02193 #### [facility],[address] [place] [address] 02736 URINALYSISon 08-31-2023 Bilirubin Ql (U) Negative Normal NORMAL: NEGATIVE [facility] Comment on above: Performed By: #### 2 75278 #### [facility],[address] [place] [address] 63529 Clarity (U) CLEAR Normal NORMAL: CLEAR [facility] Comment on above: Performed By: #### 2 31490 #### [facility],[address] [place] [address] 54333 Color (U) STRAW Normal NORMAL: YELLOW [facility] Comment on above: Performed By: #### 2 91935 #### [facility],[address] [place] [address] 89050 Glucose Ql (U) NORM Normal NORMAL: NORMAL [facility] Comment on above: Performed By: #### 2 20505 #### [facility],[address] [place] [address] 48981 Hemoglobin Ql (U) Negative Normal NORMAL: NEGATIVE [facility] Comment on above: Performed By: #### 2 91715 #### [facility],[address] [place] [address] 97289 Ketone Negative Normal NORMAL: NEGATIVE [facility] Comment on above: Performed By: #### 2 43497 #### [facility],[address] [place] [address] 13569 Leukocytes Negative Normal NORMAL: NEGATIVE [facility] Comment on above: Performed By: #### 2 61852 #### [facility],[address] [place] [address] 27045 Nitrite Ql (U) Negative Normal NORMAL: NEGATIVE [facility] Comment on above: Performed By: #### 2 22524 #### [facility],[address] [place] [address] 88763 pH (U) 7.0 [pH] Normal NORMAL: 5.0-8.0 [facility] Comment on above: Performed By: #### 2 34882 #### [facility],[address] [place] [address] 53346 Protein Ql (U) Negative Normal NORMAL: NEGATIVE [facility] Comment on above: Performed By: #### 2 89663 #### [facility],[address] [place] [address] 63077 Sp [place] 1.010 Normal NORMAL: 1.010-1.030 [facility] Comment on above: Performed By: #### 2 00757 #### [facility],[address] [place] [address] 38015 Specimen Type UNSPECIFIED Normal [facility] Comment on above: Performed By: #### 2 72726 #### [facility],[address] [place] [address] Urinalysis dipstick W Reflex Microscopic panel (U) NOT INDICATED Normal [facility] Comment on above: Performed By: #### 2 54463 #### [facility],[address] [place] [address] Urobilinog NORMAL Normal NORMAL: NORMAL [facility] Comment on above: Performed By: #### 2 44994 #### [facility],[address] [place] [address] Laboratory - Drug toxicology on 04-18-2023 Phenytoin [Mass/Vol] 11.1 ug/mL Normal 10.0 - 20.0 ug/ml [facility]; [facility]. Work Phone: Laboratory - Chemistry and C hemistry - challengeon 03-08-2023 Albumin [Mass/Vol] 3.2 g/dL Abnormal 3.4 - 5.0 g/dL [facility]; [facility], [facility]. Work Phone: Albumin [Mass/Vol] 0.8 g/dL Abnormal 0.9 - 1.6 [facility]; [facility], [facility]. Work Phone: ALT [Catalytic activity/Vol] 27 U/L Normal 14 - 59 U/L [facility], [facility]. Work Phone: Anion gap [Moles/Vol] 13 mmol/L Normal 10 - 2 0 mmol/L [facility].; [facility], [facility]. Work Phone: AST [Catalytic activity/Vol] 15 U/L Normal 13 - 39 U/L [facility]; [facility], [facility]. Work Phone: Bilirubin [Mass/Vol] 0.2 mg/dL Normal 0.2 - 1 .0 mg/dL [facility]; [facility] Work Phone: Calcium [Mass/Vol] 8.3 mg/dL Abnormal 8.5 - 10. 1 mg/dL [facility]; [facility] Work Phone: Chloride [Moles/Vol] 106 mmol/L Normal 98 - 10 7 mmol/L [facility]; [facility] Work Phone: CO2 [Moles/Vol] 22.4 mmol/L Normal 21.0 - 32.0 mmol/L [facility]; [facility] Work Phone: Creatinine [Mass/Vol] 0.43 mg/dL Abnormal 0.55 - 1.02 mg/dL [facility]; [facility] Work Phone: GFR/1.73 sq M.predicted among blacks MDRD (S/P/Bld) [Vol rate/Area] mL/min/{1.73_m2} Normal 60 - 999 {ML/MINUTE} [facility]; [facility] Work Phone: GFR/1.73 sq M.predicted MDRD (S/P/Bld) [Vol rate/Area] mL/min/{1.73_m2} Normal 60 - 999 {ML/MINUTE} [facility]. Work Phone: Globulin (S) [Mass/Vol] 4.1 g/dL Abnormal 1.5 - 3.8 g/dL [facility]; [facility] Work Phone: Glucose [Mass/Vol] 86 mg/dL Normal 74 - 106 mg/dL [facility]; [facility] Work Phone: Potassium [Moles/Vol] 3.7 mmol/L Normal 3.5 - 5.1 mmol/L [facility]; [facility] Work Phone: Protein [Mass/Vol] 7.3 g/dL Normal 6.4 - 8.2 g/dL [facility]; [facility] Work Phone: Sodium [Moles/Vol] 138 mmol/L Normal 136 - 145 mmol/L [facility]; [facility] Work Phone: Urea nitrogen [Mass/Vol] 16 mg/dL Normal 7 - 18 mg/dL [facility]; [facility] Work Phone: Urea nitrogen/Creatinine [Mass ratio] 37 {ratio} Abnormal 0 - 30 {ratio} [facility]; [facility] Work Phone: Laboratory - Drug toxicology on 03-08-2023 carBAMazepine [Mass/Vol] 4.3 ug/ml Normal 4.0 - 12.0 ug/ml [facility]; [facility] Work Phone: Phenytoin [Mass/Vol] 4.1 ug/mL Abnormal 10.0 - 20.0 ug/ml [facility]; [facility]. Work Phone: Laboratory - Hematology and Cell countson 03-08-2023 Basophils (Bld) [#/Vol] 0.00 {x10EE3/UL} Normal 0.00 - 0.10 {x10EE3/UL} [facility]; [facility], [facility]. Work Phone: Basophils/100 WBC (Bld) 0.6 % Normal 0.0 - 2.0 % [facility]; [facility] Work Phone: Eosinophils (Bld) [#/Vol] 0.10 {x10EE3/UL} Normal 0.00 - 0.50 {x10EE3/UL} [facility]; [facility] Work Phone: Eosinophils/100 WBC (Bld) 1.8 % Normal 0.0 - 7.0 % [facility]; [facility] Work Phone: Erythrocyte distribution width (RBC) [Ratio] 17.3 % Abnormal 12.0 - 15.6 % [facility]; [facility] Work Phone: Hematocrit (Bld) [Volume fraction] 32.9 % Abnormal 34.0 - 46.0 % [facility]; [facility] Work Phone: Hemoglobin (Bld) [Mass/Vol] 10.3 g/dL Abnormal 12.0 - 16.0 g/dL [facility]; [facility] Work Phone: Lymphocytes (Bld) [#/Vol] 1.40 {x10EE3/UL} Normal 0.80 - 2.80 {x10EE3/UL} [facility]; [facility]. Work Phone: Lymphocytes/100 WBC (Bld) 28.5 % Normal 20.0 - 45.0 % [facility]; [facility] Work Phone: MCH (RBC) [Entitic mass] 21 pg Abnormal 27 - 33 pg [facility]; [facility] Work Phone: MCHC (RBC) [Mass/Vol] 31 {X10_3} Abnormal 32 - 3 6 {X10_3} [facility]; [facility]. Work Phone: MCV (RBC) [Entitic vol] 66 fL Abnormal 80 - 99 fL [facility]; [facility]. Work Phone: Monocytes (Bld) [#/Vol] 0.20 {x10EE3/UL} Normal 0.20 - 1.00 {x10EE3/UL} [facility].; [facility]. Work Phone: Monocytes/100 WBC (Bld) 4.6 % Normal 0.0 - 10.0 % [facility].; [facility]. Work Phone: Morphology Blake (Bld) [Interp] SEE BELOW Normal [facility] HospitalMeetBall; [facility] Work Phone: Neutrophils (Bld) [#/Vol] 3.20 {x10EE3/UL} Normal 1.50 - 7.10 {x10EE3/UL} [facility].; [facility]. Work Phone: Neutrophils/100 WBC (Bld) 64.5 % Normal 46.0 - 76.0 % [facility].; [facility]. Work Phone: Platelet mean volume (Bld) [Entitic vol] 9.1 fL Normal 6.6 - 10.5 fL [facility].; [facility]. Work Phone: Platelets (Bld) [#/Vol] 205 {x10EE3/UL} Normal 150 - 450 {x10EE3/UL} [facility].; [facility]. Work Phone: RBC (Bld) [#/Vol] 5.00 {x_10EE6/UL} Normal 4.10 - 5.30 {x_10EE6/UL} [facility].; [employer] [facility]. Work Phone: WBC (Bld) [#/Vol] 5.0 {x_10EE3/UL} Normal 4.5 - 10.8 {x_10EE3/UL} [facility].; [facility], [facility]. Work Phone: No Panel Informationon 03-08 AGE 47 {years} Normal [facility].; [facility]. Work Phone: ALK PHOS 107 U/L Normal 46 - 116 U/L [facility].; [facility]. Work Phone: CBC + DIFF Normal [facility].; [facility]. Work Phone: CMP with eGFR Normal [facility].; [employer] [facility]. Work Phone: MANUAL DIFF N/A Normal [facility].; [facility]. Work Phone: MICROCYTES 1+ Normal [facility].; [employer] [facility], [facility]. Work Phone: PLT EST NORMAL [facility].; [employer] [facility], [facility]. Work Phone: Final Surgical Pathology Rep [facility] 11-13-2022 Final Surgical Pathology Report . Pathology Reports Accession: Collected Date/Time: Received Date/Time: Pathologist: [id number] 11/10/2022 10:10 EDT 11/12/2022 08:04 EDT MD ÁNGELA PIERCE Final Surgical Pathology Report DIAGNOSIS: UTERUS, CERVIX AND BILATERAL FALLOPIAN TUBES: - CERVIX -CHRONIC INFLAMMATION - ENDOMETRIUM -NO SPECIFIC PATHOLOGIC CHANGES - MYOMETRIUM -LEIOMYOMAS - FALLOPIAN TUBES -NO SPECIFIC PATHOLOGIC CHANGES CLINICAL INFORMATION: Procedure: ROBOTIC ASSISTED TOTAL ABDOMINAL HYSTERECTOMY, BILATERAL SALPINGECTOMY, MINI LAPAROTOMY, CYSTOSCOPY Preoperative diagnosis: FIBROID UTERUS Postoperative diagnosis: FIBROID UTERUS SPECIMEN: A UTERUS, CERVIX, BILATERAL FALLOPIAN TUBES GROSS DESCRIPTION: A. Received in formalin, labeled with the patients name, Case # [id number], and uterus, cervix, bilateral fallopian tubes Weight/dimensions-210 g and measures 9.5 cm (fundus to cervix), 7 cm (cornu to cornu), asymmetrical 6.2 cm (anterior to posterior). Ypnaac-wwm-intt with multiple subserosal nodules Cervix/endocervix-3 cm in diameter and 3 cm in length Endometrium-irregular shaped endometrial cavity measuring 3.5 x 3.5 cm. Within the cavity is a white rolled well-circumscribed nodule. Uxzhhhxsdn-rib-knnk measuring up to 3.5 cm with multiple white whorled well-circumscribed nodules both anterior and posterior ranging from 0.7 x 0.7 x 0.7 up to the largest measuring 4.5 x 4 x 3.5 cm. All the nodules have a consistent white whorled appearance Right fallopian tube: 4.5 x 0.9 cm Left fallopian tube: 6 x 0.8 cm RS-6 Cassette Summary: A1-Cervix A2-Anterior endomyometrium A3-Posterior endomyometrium A4-White whorled nodules A5 -Right fallopian tube A6-Left fallopian tube Dictated by PATI [place] MICROSCOPIC DESCRIPTION: The microscopic examination is performed, except in the case of Gross Only. Electronically Signed by Pathology Report verified by [facility] ÁNGELA PIERCE MD Sign out Date: 11/13/2022 11:43 Performing Lab: [address] Pathology Dept Pathology Reports Accession: Collected Date/Time: Received Date/Time: Pathologist: [id number] 11/10/2022 10:10 EDT 11/12/2022 08:04 TENAT MD ÁNGELA PIERCE Disclaimer If ancillary studies were utilized, the following Laboratory Developed Test (LDT) disclaimer will apply: Under CLIA requirements, [facility] is qualified to perform high complexity testing. For all ancillary stains, positive and negative controls stain appropriately. Performance characteristics of immunohistochemical and chromogenic in-situ hybridization tests have been determined by [facility]. These tests are used for clinical purposes, They should not be regarded as investigational or for research. Normal [facility] ([place]) .Auto Diffon 11-10-2022 Basophil, Absolute 0.0 10 3/mcL Normal 0.0-0.3 [facility] ([place]) Comment on above: Performed By: #### A DIFF, ANEU, CBC, CMP, MG, PHOS, GFR #### [address] [address] Basophils/100 WBC (Bld) 0.5 % Normal 0.0-2.5 [facility] ([place]) Comment on above: Performed By: #### A DIFF, ANEU, CBC, CMP, MG, PHOS, GFR #### [address] [address] Eosinophil, Absolute 0.0 10 3/mcL Normal 0.0-0.7 [facility] ([place]) Comment on above: Performed By: #### A DIFF, ANEU, CBC, CMP, MG, PHOS, GFR #### [address] [address] Eosinophils/100 WBC (Bld) 0.6 % Normal 0.0-6.0 [facility] ([place]) Comment on above: Performed By: #### A DIFF, ANEU, CBC, CMP, MG, PHOS, GFR #### [address] [address] Lymphocyte, Absolute 1.4 10 3/mcL Normal 0.9-4.3 [facility] ([place]) Comment on above: Performed By: #### A DIFF, ANEU, CBC, CMP, MG, PHOS, GFR #### [address] [address] Lymphocytes/100 WBC (Bld) 27.3 % Normal 20.0-40.0 [facility] ([place]) Comment on above: Performed By: #### A DIFF, ANEU, CBC, CMP, MG, PHOS, GFR #### [address] [address] Monocyte, Absolute 0.3 10 3/mcL Normal 0.1-1.4 [facility] ([place]) Comment on above: Performed By: #### A DIFF, ANEU, CBC, CMP, MG, PHOS, GFR #### [address] [address] Monocytes/100 WBC (Bld) 6.2 % Normal 2.0-13.0 [facility] ([place]) Comment on above: Performed By: #### A DIFF, ANEU, CBC, CMP, MG, PHOS, GFR #### [address] [address] Neutrophils/100 WBC (Bld) 65.4 % Normal 50.0-75.0 [facility] ([place]) Comment on above: Performed By: #### A DIFF, ANEU, CBC, CMP, MG, PHOS, GFR #### [address] [address] .GFRon 11-10-2022 GFR >60 Normal [facility] ([place]) Comment on above: Result Comment: GFR Population mean for , Non- Americans Ages 20-29 = 116 mL/min/1.73 sq.m. Ages 30-39 = 107 mL/min/1.73 sq.m. Ages 40-49 = 99 mL/min/1.73 sq.m. Ages 50-59 = 93 mL/min/1.73 sq.m. Ages 60-69 = 85 mL/min/1.73 sq.m. Ages 70+ = 75 mL/min/1.73 sq.m. Chronic Kidney Disease: Less than 60 mL/min/1.73 square meters End Stage Renal Disease: Less than 15 mL/min/1.73 square meters Performed By: #### A DIFF, ANEU, CBC, CMP, MG, PHOS, GFR #### [address] [address] GFR Non- >60 Normal [facility] ([place] Comment on above: Result Comment: GFR Population mean for , Non- Americans Ages 20-29 = 116 mL/min/1.73 sq.m. Ages 30-39 = 107 mL/min/1.73 sq.m. Ages 40-49 = 99 mL/min/1.73 sq.m. Ages 50-59 = 93 mL/min/1.73 sq.m. Ages 60-69 = 85 mL/min/1.73 sq.m. Ages 70+ = 75 mL/min/1.73 sq.m. Chronic Kidney Disease: Less than 60 mL/min/1.73 square meters End Stage Renal Disease: Less than 15 mL/min/1.73 square meters Performed By: #### A DIFF, ANEU, CBC, CMP, MG, PHOS, GFR #### [address] [address] .NEUABSon 11-10-2022 Neutrophil, Absolute 3.3 10 3/mcL Normal 2.3-8.1 [facility] ([place] Comment on above: Performed By: #### A DIFF, ANEU, CBC, CMP, MG, PHOS, GFR #### [address] [address] CBCon 11-10-2022 Erythrocyte distribution width (RBC) [Ratio] 22.2 % High 11.5-15.5 [facility] ([place] Comment on above: Performed By: #### A DIFF, ANEU, CBC, CMP, MG, PHOS, GFR #### [place] [address] Hematocrit (Bld) [Volume fraction] 28.1 % Low 34.0-46.0 [facility] ([place] Comment on above: Performed By: #### A DIFF, ANEU, CBC, CMP, MG, PHOS, GFR #### [address] [address] Hgb 8.9 G/dL Low 12.0-16.0 [facility] ([place] Comment on above: Performed By: #### A DIFF, ANEU, CBC, CMP, MG, PHOS, GFR #### [place] [address] MCH (RBC) [Entitic mass] 22.7 pg Low 27.0-33.0 [facility] ([place] Comment on above: Performed By: #### A DIFF, ANEU, CBC, CMP, MG, PHOS, GFR #### [address] [address] MCHC 31.7 G/dL Low 32.0-36.0 [facility] ([place] Comment on above: Performed By: #### A DIFF, ANEU, CBC, CMP, MG, PHOS, GFR #### [place] [address] MCV (RBC) [Entitic vol] 71.6 fL Low 80.0-99.0 [facility] ([place] Comment on above: Performed By: #### A DIFF, ANEU, CBC, CMP, MG, PHOS, GFR #### [place] [address] Platelet 299 10 3/mcL Normal 150-450 [facility] ([place] Comment on above: Performed By: #### A DIFF, ANEU, CBC, CMP, MG, PHOS, GFR #### [place] [address] Platelet mean volume (Bld) [Entitic vol] 8.3 fL Normal 6.6-10.5 [facility] ([place] Comment on above: Performed By: #### A DIFF, ANEU, CBC, CMP, MG, PHOS, GFR #### [place] [address] RBC 3.93 10 6/mcL Low 4.10-5.30 [facility] ([place] Comment on above: Performed By: #### A DIFF, ANEU, CBC, CMP, MG, PHOS, GFR #### [place] [address] WBC 5.1 10 3/mcL Normal 4.5-10.8 [facility] ([place] Comment on above: Performed By: #### A DIFF, ANEU, CBC, CMP, MG, PHOS, GFR #### [place] [address] CMPon 11-10-2022 Albumin Level 3.0 G/dL Low 3.2-4.8 [facility] ([place] Comment on above: Performed By: #### A DIFF, ANEU, CBC, CMP, MG, PHOS, GFR #### [facility] [address] [place], [place] [address] Albumin/Globulin [Mass ratio] 1.0 {ratio} Normal 0.9-1.6 [facility] ([place] Comment on above: Performed By: #### A DIFF, ANEU, CBC, CMP, MG, PHOS, GFR #### [address] [address] ALP [Catalytic activity/Vol] 80 U/L Normal 38-126 [facility] ([place] Comment on above: Performed By: #### A DIFF, ANEU, CBC, CMP, MG, PHOS, GFR #### [place] [id number] ALT [Catalytic activity/Vol] 15 U/L Normal 10-49 [facility] ([place] Comment on above: Performed By: #### A DIFF, ANEU, CBC, CMP, MG, PHOS, GFR #### [place] [id number] AST [Catalytic activity/Vol] 16 U/L Normal 8-34 [facility] ([place] Comment on above: Performed By: #### A DIFF, ANEU, CBC, CMP, MG, PHOS, GFR #### [place] [id number] Bili Total 0.40 mg/dL Normal 0.20-1.20 [facility] ([place] Comment on above: Result Comment: Use of this assay is not recommended for patients undergoing treatment with eltrombopag due to the potential for falsely elevated results. Performed By: #### A DIFF, ANEU, CBC, CMP, MG, PHOS, GFR #### [place] [id number] BUN/Creatinine Ratio 18.2 ratio Normal 10.0-22.0 [facility] ([place]) Comment on above: Performed By: #### A DIFF, ANEU, CBC, CMP, MG, PHOS, GFR #### [place] [id number] Calcium [Mass/Vol] 8.2 mg/dL Low 8.7-10.4 [facility] ([place] Comment on above: Performed By: #### A DIFF, ANEU, CBC, CMP, MG, PHOS, GFR #### [address] [address] Chloride [Moles/Vol] 114 mmol/L High 98-110 [facility] ([place] Comment on above: Performed By: #### A DIFF, ANEU, CBC, CMP, MG, PHOS, GFR #### [address] [address] CO2 [Moles/Vol] 21 mmol/L Low 22-32 [facility] ([place] Comment on above: Performed By: #### A DIFF, ANEU, CBC, CMP, MG, PHOS, GFR #### [address] [address] Creatinine [Mass/Vol] 0.44 mg/dL Low 0.50-1.20 [facility] ([place] Comment on above: Performed By: #### A DIFF, ANEU, CBC, CMP, MG, PHOS, GFR #### [place] [id number] Electrolyte Balance 5.0 mEq/L Normal 4.0-15.0 [facility] ([place] Comment on above: Performed By: #### A DIFF, ANEU, CBC, CMP, MG, PHOS, GFR #### [address] [address] Globulin 2.9 G/dL Normal 1.5-3.8 [facility] ([place] Comment on above: Performed By: #### A DIFF, ANEU, CBC, CMP, MG, PHOS, GFR #### [address] [address] Glucose [Mass/Vol] 94 mg/dL Normal 70-110 [facility] ([place] Comment on above: Performed By: #### A DIFF, ANEU, CBC, CMP, MG, PHOS, GFR #### [address] [address] Potassium [Moles/Vol] 3.9 mmol/L Normal 3.5-5.0 [facility] ([place] Comment on above: Performed By: #### A DIFF, ANEU, CBC, CMP, MG, PHOS, GFR #### [address] [address] Sodium [Moles/Vol] 140 mmol/L Normal 136-145 [facility] ([place] Comment on above: Performed By: #### A DIFF, ANEU, CBC, CMP, MG, PHOS, GFR #### [address] [address] Total Protein 5.9 G/dL Normal 5.7-8.2 [facility] ([place] Comment on above: Result Comment: No te - New Reference Range in effect 19 Performed By: #### A DIFF, ANEU, CBC, CMP, MG, PHOS, GFR #### [address] [address] Urea nitrogen [Mass/Vol] 8.0 mg/dL Normal 8.0-22.0 [facility] ([place] Comment on above: Performed By: #### A DIFF, ANEU, CBC, CMP, MG, PHOS, GFR #### [address] [address] MGon 11-10-2022 Magnesium [Mass/Vol] 2.0 mg/dL Normal 1.6-2.4 [facility] ([place] Comment on above: Performed By: #### A DIFF, ANEU, CBC, CMP, MG, PHOS, GFR #### [address] [address] PHOSon 11-10-2022 Phosphate [Mass/Vol] 3.2 mg/dL Normal 2.4-5.1 [facility] ([place] Comment on above: Result Comment: No te - New Reference Range in effect 19 Performed By: #### A DIFF, ANEU, CBC, CMP, MG, PHOS, GFR #### [address] [address] RBC (Product)on 11-10-2022 RBC Product Ready RBC Ready for Pickup Normal [facility] ([place] Comment on above: Order Comment: ON HO LD FOR SURGERY Performed By: #### A DIFF, ANEU, CBC, CMP, MG, PHOS, GFR #### [address] [address] .Auto Diffon 11-09-2022 Basophil, Absolute 0.0 10 3/mcL Normal 0.0-0.3 [facility] ([place] Comment on above: Performed By: #### A DIFF, ANEU, CBC, CMP, MG, PHOS, GFR #### [address] [address] Basophils/100 WBC (Bld) 0.7 % Normal 0.0-2.5 [facility] ([place]) Comment on above: Performed By: #### A DIFF, ANEU, CBC, CMP, MG, PHOS, GFR #### [address] [address] Eosinophil, Absolute 0.0 10 3/mcL Normal 0.0-0.7 [facility] ([place]) Comment on above: Performed By: #### A DIFF, ANEU, CBC, CMP, MG, PHOS, GFR #### [address] [address] Eosinophils/100 WBC (Bld) 0.8 % Normal 0.0-6.0 [facility] ([place]) Comment on above: Performed By: #### A DIFF, ANEU, CBC, CMP, MG, PHOS, GFR #### [address] [address] Lymphocyte, Absolute 1.8 10 3/mcL Normal 0.9-4.3 [facility] ([place]) Comment on above: Performed By: #### A DIFF, ANEU, CBC, CMP, MG, PHOS, GFR #### [address] [address] Lymphocytes/100 WBC (Bld) 34.0 % Normal 20.0-40.0 [facility] ([place]) Comment on above: Performed By: #### A DIFF, ANEU, CBC, CMP, MG, PHOS, GFR #### [address] [address] Monocyte, Absolute 0.3 10 3/mcL Normal 0.1-1.4 [facility] ([place]) Comment on above: Performed By: #### A DIFF, ANEU, CBC, CMP, MG, PHOS, GFR #### [address] [address] Monocytes/100 WBC (Bld) 6.0 % Normal 2.0-13.0 [facility] ([place] Comment on above: Performed By: #### A DIFF, ANEU, CBC, CMP, MG, PHOS, GFR #### [address] [address] Neutrophils/100 WBC (Bld) 58.5 % Normal 50.0-75.0 [facility] ([place] Comment on above: Performed By: #### A DIFF, ANEU, CBC, CMP, MG, PHOS, GFR #### [address] [address] .GFRon 11-09-2022 GFR >60 Normal [facility] ([place] Comment on above: Result Comment: GFR Population mean for , Non- Americans Ages 20-29 = 116 mL/min/1.73 sq.m. Ages 30-39 = 107 mL/min/1.73 sq.m. Ages 40-49 = 99 mL/min/1.73 sq.m. Ages 50-59 = 93 mL/min/1.73 sq.m. Ages 60-69 = 85 mL/min/1.73 sq.m. Ages 70+ = 75 mL/min/1.73 sq.m. Chronic Kidney Disease: Less than 60 mL/min/1.73 square meters End Stage Renal Disease: Less than 15 mL/min/1.73 square meters Performed By: #### A DIFF, ANEU, CBC, CMP, MG, PHOS, GFR #### [address] [address] GFR Non- >60 Normal [facility] ([place] Comment on above: Result Comment: GFR Population mean for , Non- Americans Ages 20-29 = 116 mL/min/1.73 sq.m. Ages 30-39 = 107 mL/min/1.73 sq.m. Ages 40-49 = 99 mL/min/1.73 sq.m. Ages 50-59 = 93 mL/min/1.73 sq.m. Ages 60-69 = 85 mL/min/1.73 sq.m. Ages 70+ = 75 mL/min/1.73 sq.m. Chronic Kidney Disease: Less than 60 mL/min/1.73 square meters End Stage Renal Disease: Less than 15 mL/min/1.73 square meters Performed By: #### A DIFF, ANEU, CBC, CMP, MG, PHOS, GFR #### [address] [address] .Morphon 11-09-2022 Acanthocytes 1+ Normal [facility] ([place] Comment on above: Performed By: #### A DIFF, ANEU, CBC, CMP, MG, PHOS, GFR #### [place] [address] Anisocytosis Ql (Bld) 1+ Normal [facility] ([place] Comment on above: Performed By: #### A DIFF, ANEU, CBC, CMP, MG, PHOS, GFR #### [place] [address] Hypochrom 1+ Normal [facility] ([place] Comment on above: Performed By: #### A DIFF, ANEU, CBC, CMP, MG, PHOS, GFR #### [place] [address] Microcytosis 2+ Normal [facility] ([place] Comment on above: Performed By: #### A DIFF, ANEU, CBC, CMP, MG, PHOS, GFR #### [place] [address] Ovalocytes 1+ Normal [facility] ([place] Comment on above: Performed By: #### A DIFF, ANEU, CBC, CMP, MG, PHOS, GFR #### [place] [address] Platelet Estimate Normal Normal [facility] ([place] Comment on above: Performed By: #### A DIFF, ANEU, CBC, CMP, MG, PHOS, GFR #### [place] [address] Schistocyte 1+ Normal [facility] ([place] Comment on above: Performed By: #### A DIFF, ANEU, CBC, CMP, MG, PHOS, GFR #### [address] [address] .NEUABSon 11-09-2022 Neutrophil, Absolute 3.0 10 3/mcL Normal 2.3-8.1 [facility] ([place] Comment on above: Performed By: #### A DIFF, ANEU, CBC, CMP, MG, PHOS, GFR #### [address] [address] ABO/Rh (Gel)on 11-09-2022 ABO/Rh Interp Negative Invalid Interpretation Code [facility] ([place] Comment on above: Performed By: #### A DIFF, ANEU, CBC, CMP, MG, PHOS, GFR #### [place] [id number] ABS (Gel)on 11-09-2022 ABSC Interp (Gel) Negative Normal [facility] ([place] Comment on above: Performed By: #### A DIFF, ANEU, CBC, CMP, MG, PHOS, GFR #### [place] [id number] CBCon 11-09-2022 Erythrocyte distribution width (RBC) [Ratio] 17.3 % High 11.5-15.5 [facility] ([place] Comment on above: Performed By: #### A DIFF, MG, CMP, MORPH, CBC, GFR, PHOS, ANEU #### [place] [phone] Hematocrit (Bld) [Volume fraction] 22.4 % Low 34.0-46.0 [facility] ([place] Comment on above: Performed By: #### A DIFF, MG, CMP, MORPH, CBC, GFR, PHOS, ANEU #### [place] [id number] Hgb 6.9 G/dL Critically abnormal 12.0-16.0 [facility] ([place] Comment on above: Performed By: #### A DIFF, MG, CMP, MORPH, CBC, GFR, PHOS, ANEU #### [place] [address] MCH (RBC) [Entitic mass] 20.1 pg Low 27.0-33.0 [facility] ([place] Comment on above: Performed By: #### A DIFF, MG, CMP, MORPH, CBC, GFR, PHOS, ANEU #### [place] [address] MCHC 30.6 G/dL Low 32.0-36.0 [facility] ([place] Comment on above: Performed By: #### A DIFF, MG, CMP, MORPH, CBC, GFR, PHOS, ANEU #### [place] [address] MCV (RBC) [Entitic vol] 65.7 fL Low 80.0-99.0 [facility] ([place] Comment on above: Performed By: #### A DIFF, MG, CMP, MORPH, CBC, GFR, PHOS, ANEU #### [place] [address] Platelet 323 10 3/mcL Normal 150-450 [facility] ([place] Comment on above: Performed By: #### A DIFF, MG, CMP, MORPH, CBC, GFR, PHOS, ANEU #### [place] [address] Platelet mean volume (Bld) [Entitic vol] 8.0 fL Normal 6.6-10.5 [facility] ([place] Comment on above: Performed By: #### A DIFF, MG, CMP, MORPH, CBC, GFR, PHOS, ANEU #### [place] [address] RBC 3.41 10 6/mcL Low 4.10-5.30 [facility] ([place] Comment on above: Performed By: #### A DIFF, MG, CMP, MORPH, CBC, GFR, PHOS, ANEU #### [place] [address] WBC 5.2 10 3/mcL Normal 4.5-10.8 [facility] ([place] Comment on above: Performed By: #### A DIFF, MG, CMP, MORPH, CBC, GFR, PHOS, ANEU #### [place] [address] CMPon 11-09-2022 Albumin Level 3.4 G/dL Normal 3.2-4.8 [facility] ([place] Comment on above: Performed By: #### A DIFF, ANEU, CBC, CMP, MG, PHOS, GFR #### [address] [address] Albumin/Globulin [Mass ratio] 1.2 {ratio} Normal 0.9-1.6 [facility] ([place] Comment on above: Performed By: #### A DIFF, ANEU, CBC, CMP, MG, PHOS, GFR #### [place] [id number] ALP [Catalytic activity/Vol] 86 U/L Normal 38-126 [facility] ([place] Comment on above: Performed By: #### A DIFF, ANEU, CBC, CMP, MG, PHOS, GFR #### [place] [id number] ALT [Catalytic activity/Vol] 14 U/L Normal 10-49 [facility] ([place] Comment on above: Performed By: #### A DIFF, ANEU, CBC, CMP, MG, PHOS, GFR #### [place] [id number] AST [Catalytic activity/Vol] 15 U/L Normal 8-34 [facility] ([place] Comment on above: Performed By: #### A DIFF, ANEU, CBC, CMP, MG, PHOS, GFR #### [place] [id number] Bili Total <0.20 Normal 0.20-1.20 [facility] ([place] Comment on above: Result Comment: Use of this assay is not recommended for patients undergoing treatment with eltrombopag due to the potential for falsely elevated results. Performed By: #### A DIFF, ANEU, CBC, CMP, MG, PHOS, GFR #### [place] [id number] BUN/Creatinine Ratio 25.0 ratio High 10.0-22.0 [facility] ([place] Comment on above: Performed By: #### A DIFF, ANEU, CBC, CMP, MG, PHOS, GFR #### [address] [address] Calcium [Mass/Vol] 8.3 mg/dL Low 8.7-10.4 [facility] ([place] Comment on above: Performed By: #### A DIFF, ANEU, CBC, CMP, MG, PHOS, GFR #### [address] [address] Chloride [Moles/Vol] 110 mmol/L Normal 98-110 [facility] ([place] Comment on above: Performed By: #### A DIFF, ANEU, CBC, CMP, MG, PHOS, GFR #### [address] [address] CO2 [Moles/Vol] 22 mmol/L Normal 22-32 [facility] ([place] Comment on above: Performed By: #### A DIFF, ANEU, CBC, CMP, MG, PHOS, GFR #### [address] [address] Creatinine [Mass/Vol] 0.44 mg/dL Low 0.50-1.20 [facility] ([place] Comment on above: Performed By: #### A DIFF, ANEU, CBC, CMP, MG, PHOS, GFR #### [place] [id number] Electrolyte Balance 9.0 mEq/L Normal 4.0-15.0 [facility] ([place] Comment on above: Performed By: #### A DIFF, ANEU, CBC, CMP, MG, PHOS, GFR #### [address] [address] Globulin 2.9 G/dL Normal 1.5-3.8 [facility] ([place] Comment on above: Performed By: #### A DIFF, ANEU, CBC, CMP, MG, PHOS, GFR #### [place] [phone] Glucose [Mass/Vol] 141 mg/dL High 70-110 [facility] ([place] Comment on above: Performed By: #### A DIFF, ANEU, CBC, CMP, MG, PHOS, GFR #### [address] [address] Potassium [Moles/Vol] 3.7 mmol/L Normal 3.5-5.0 [facility] ([place] Comment on above: Performed By: #### A DIFF, ANEU, CBC, CMP, MG, PHOS, GFR #### [place] [address] Sodium [Moles/Vol] 141 mmol/L Normal 136-145 [facility] ([place] Comment on above: Performed By: #### A DIFF, ANEU, CBC, CMP, MG, PHOS, GFR #### [place] [address] Total Protein 6.3 G/dL Normal 5.7-8.2 [facility] ([place] Comment on above: Result Comment: No te - New Reference Range in effect 19 Performed By: #### A DIFF, ANEU, CBC, CMP, MG, PHOS, GFR #### [place] [address] Urea nitrogen [Mass/Vol] 11.0 mg/dL Normal 8.0-22.0 [facility] ([place] Comment on above: Performed By: #### A DIFF, ANEU, CBC, CMP, MG, PHOS, GFR #### [place] [address] MGon 11-09-2022 Magnesium [Mass/Vol] 1.9 mg/dL Normal 1.6-2.4 [facility] ([place] Comment on above: Performed By: #### A DIFF, ANEU, CBC, CMP, MG, PHOS, GFR #### [place] [address] PHOSon 11-09-2022 Phosphate [Mass/Vol] 3.1 mg/dL Normal 2.4-5.1 [facility] ([place] Comment on above: Result Comment: No te - New Reference Range in effect 19 Performed By: #### A DIFF, ANEU, CBC, CMP, MG, PHOS, GFR #### [place] [address] PREGUon 11-09-2022 HCG ( test) Ql (U) Negative Normal [facility] ([place] Comment on above: Performed By: #### P REGU #### [address] [address] test (u) int Not detected Invalid Interpretation Code [facility] ([place] Comment on above: Performed By: #### P REGU #### [facility] [address] [place] [id number] RBC (Product)on 11-09-2022 RBC Product Ready RBC Ready for Pickup Normal [facility] ([place] Comment on above: Performed By: #### A DIFF, ANEU, CBC, CMP, MG, PHOS, GFR #### [address] [address] Absolute lymphocyte countOrd ered By: Ct Hairston on 11-07-2022 Lymphocytes Auto (Unsp spec) [#/Vol] 1.60 10*3/uL 0.83-4.51 [facility] Basophil percentageOrdered B y: Ct Hairston on 11-07-2022 Basophils/100 WBC (Bld) 0.6 % 0-1 [facility] Eosinophils/100 WBC (Bld) 0.6 % 0-5 [facility] Neutrophils (Bld) [#/Vol] 2.9 10*3/uL 2.0-7.7 [facility] Neutrophils/100 WBC (Bld) 59.6 % 47-70 [facility] WBC (Bld) [#/Vol] 4.9 10*3/uL 4.4-11.0 [facility] erythrocytes count (nu mber/volume)Ordered By: Ct Hairston on 11-07-2022 RBC (Bld) [#/Vol] 3.45 10*6/uL 4.2-5.4 [facility] hemoglobin measurement (mass/volume)Ordered By: Ct Hairston on 11-07-2022 Hemoglobin (Bld) [Mass/Vol] 6.9 g/dL 12.0-15.0 [facility] Blood lymphocytes/100 leukoc ytesOrdered By: Ct Hairston on 11-07-2022 Lymphocytes/100 WBC (Bld) 32.5 % 19-41 [facility] Blood monocytes/100 leukocyt esOrdered By: Ct Hairston on 11-07-2022 Monocytes/100 WBC (Bld) 6.3 % 0-10 [facility] Blood platelet mean volumeOr dered By: Ct Hairston on 11-07-2022 Platelet mean volume (Bld) [Entitic vol] 10.1 fL 6.2-12.0 [facility] CBC W/Diff, Automatedon 10-20 Absolute Lymph 1.60 X10 3/uL Normal 0.83-4.51 [facility] Comment on above: Performed By: #### L 100.0100, L700.8000, L501.9520, L506.0400, L3100.5055, L3100.5420, [id number] #### [facility] [address] [place], [address] Absolute Neut 2.9 X10 3/uL Normal 2.0-7.7 [facility] Comment on above: Performed By: #### L 100.0100, L700.8000, L501.9520, L506.0400, L3100.5055, L3100.5420, L3300.1750 #### [facility] [address] [place], [address] Basophils/100 WBC (Bld) 0.6 % Normal 0-1 [facility] Comment on above: Performed By: #### L 100.0100, L700.8000, L501.9520, L506.0400, L3100.5055, L3100.5420, L3300.1750 #### [facility] [address] [place], [address] Eosinophils/100 WBC (Bld) 0.6 % Normal 0-5 [facility] Comment on above: Performed By: #### L 100.0100, L700.8000, L501.9520, L506.0400, L3100.5055, L3100.5420, L3300.1750 #### [facility] [address] [place], [address] Erythrocyte distribution width (RBC) [Ratio] 17.4 % High 11.6-14.6 [facility] Comment on above: Performed By: #### L 100.0100, L700.8000, L501.9520, L506.0400, L3100.5055, L3100.5420, L3300.1750 #### [facility] [address] [place], [address] Hematocrit (Bld) [Volume fraction] 24.4 % Low 37-47 [facility] Comment on above: Performed By: #### L 100.0100, L700.8000, L501.9520, L506.0400, L3100.5055, L3100.5420, L3300.1750 #### [facility] [address] [place], [address] Hemoglobin (Bld) [Mass/Vol] 6.9 g/dL Low 12.0-15.0 [facility] Comment on above: Performed By: #### L 100.0100, L700.8000, L501.9520, L506.0400, L3100.5055, L3100.5420, L3300.1750 #### [facility] [address] [place], [address] IG% 0.400 Normal 0.0-0.9 [facility] Comment on above: Result Comment: IG% - Immature Granulocytes (promyelocytes, myelocytes and metamyelocytes) > 1% indicates that a LEFT SHIFT is Present. Performed By: #### L 100.0100, L700.8000, L501.9520, L506.0400, L3100.5055, L3100.5420, L3300.1750 #### [facility] [address] [place], [address] Lymphocytes/100 WBC (Bld) 32.5 % Normal 19-41 [facility] Comment on above: Performed By: #### L 100.0100, L700.8000, L501.9520, L506.0400, L3100.5055, L3100.5420, L3300.1750 #### [facility] [address] [place], [address] MCH (RBC) [Entitic mass] 20.0 pg Low 27.0-32.0 [facility] Comment on above: Performed By: #### L 100.0100, L700.8000, L501.9520, L506.0400, L3100.5055, L3100.5420, L3300.1750 #### [facility] [address] [place], [address] MCHC (RBC) [Mass/Vol] 28.3 g/dL Low 32-36 [facility] Comment on above: Performed By: #### L 100.0100, L700.8000, L501.9520, L506.0400, L3100.5055, L3100.5420, [id number] #### [facility] [address] [place], [address] MCV (RBC) [Entitic vol] 70.7 fL Low 81-99 [facility] Comment on above: Performed By: #### L 100.0100, L700.8000, L501.9520, L506.0400, L3100.5055, L3100.5420, [id number] #### [facility] [address] [place], [address] Monocytes/100 WBC (Bld) 6.3 % Normal 0-10 [facility] Comment on above: Performed By: #### L 100.0100, L700.8000, L501.9520, L506.0400, L3100.5055, L3100.5420, L3300.1750 #### [facility] [address] [place], [address] Neutrophils/100 WBC (Bld) 59.6 % Normal 47-70 [facility] Comment on above: Performed By: #### L 100.0100, L700.8000, L501.9520, L506.0400, L3100.5055, L3100.5420, [id number] #### [facility] [address] [place], [address] Nucleated RBC (Bld) [#/Vol] 0 10*3/uL Normal 0-5 [facility] Comment on above: Performed By: #### L 100.0100, L700.8000, L501.9520, L506.0400, L3100.5055, L3100.5420, [id number] #### [facility] [address] [place], [address] Platelet mean volume (Bld) [Entitic vol] 10.1 fL Normal 6.2-12.0 [facility] Comment on above: Performed By: #### L 100.0100, L700.8000, L501.9520, L506.0400, L3100.5055, L3100.5420, [id number] #### [facility] [address] [place], [address] Platelets (Bld) [#/Vol] 369 10*3/uL Normal 150-450 [facility] Comment on above: Performed By: #### L 100.0100, L700.8000, L501.9520, L506.0400, L3100.5055, L3100.5420, [id number] #### [facility] [address] [place], [address] RBC (Bld) [#/Vol] 3.45 10*6/uL Low 4.2-5.4 [facility] Comment on above: Performed By: #### L 100.0100, L700.8000, L501.9520, L506.0400, L3100.5055, L3100.5420, [id number] #### [facility] [address] [place], [place], [id number] RDW SD 43.9 fl Normal 35.1-43.9 [facility] Comment on above: Performed By: #### L 100.0100, L700.8000, L501.9520, L506.0400, L3100.5055, L3100.5420, [id number] #### [facility] [address] [place], [address] WBC (Bld) [#/Vol] 4.9 10*3/uL Normal 4.4-11.0 [facility] Comment on above: Performed By: #### L 100.0100, L700.8000, L501.9520, L506.0400, L3100.5055, L3100.5420, [id number] #### [facility] [address] [place], [address] Determination of erythrocyte mean corpuscular volume (MCV)Ordered By: Ct Hairston on 11-07-2022 MCV (RBC) [Entitic vol] 70.7 fL 81-99 [facility] Estradiolon 11-07-2022 ESTRADIOL 53.1 pg/mL Normal [facility] Comment on above: Result Comment: NORM AL REFERENCE RANGES FEMALE FOLLICULAR 21.4 - 164.8 pg/mL MID-CYCLE PEAK 49.9 - 367.2 pg/mL LUTEAL 40.2 - 259.0 pg/mL POST-MENOPAUSAL ON MHT <11.0 - 462.1 pg/mL NOT ON MHT <11.0 - 58.3 pg/mL MALE <11.0 - 52.5 pg/mL NOTE: [employer] HAS CONFIRMED THE DRUG FULVETRANT (FASLODEX) MAY CAUSE FALSELY ELEVATED ESTRADIOL RESULTS WHEN USING THIS TEST METHOD. IF PATIENT IS TAKING FULVESTRANT AN ALTERNATIVE METHOD SHOULD BE USED TO DETERMINE ESTRADIOL CONCENTRATION. Performed By: #### L 100.0100, L700.8000, L501.9520, L506.0400, L3100.5055, L3100.5420, [id number] #### [facility] [address] [place], [address] FSH and LHon 11-07-2022 FSH 11.4 mIU/mL Normal [facility] Comment on above: Result Comment: NORMAL REFERENCE RANGES FEMALE FOLLICULAR 2.3 - 12.6 mIU/mL MID-CYCLE PEAK 5.2 - 17.5 mIU/mL LUTEAL 1.7 - 12.9 mIU/mL POST-MENOPAUSAL ON MHT 5.9 - 72.8 mIU/mL NOT ON MHT 12.7 - 132.2 mlU/mL MALE 0.7 - 10.8 mIU/mL Performed By: #### L 100.0100, L700.8000, L501.9520, L506.0400, L3100.5055, L3100.5420, [id number] #### [facility] [address] [place], [address] LH 6.9 mIU/mL Normal [facility] Comment on above: Result Comment: NORMAL REFERENCE RANGES FEMALE FOLLICULAR 1.9 - 26.2 mIU/mL MID-CYCLE PEAK 22.8 - 76.1 mIU/mL LUTEAL 0.6 - 16.6 mIU/mL POST-MENOPAUSAL ON MHT 1.1 - 52.4 mIU/mL NOT ON MHT 8.6 - 61.8 mIU/mL MALE 1.2 - 10.6 mIU/mL Performed By: #### L 100.0100, L700.8000, L501.9520, L506.0400, L3100.5055, L3100.5420, [id number] #### [facility] [address] [place], [address] Ferritinon 11-07-2022 Ferritin [Mass/Vol] 11 ng/mL Normal 8-252 [facility] Comment on above: Performed By: #### L 503.6550 #### [facility] [address] [place], [address] Hematocrit Auto (Bld) [Volum e fraction]Ordered By: Ct Hairston on 11-07-2022 Hematocrit (Bld) [Volume fraction] 24.4 % 37-47 [facility] - Chemistry and C hemistry - challengeOrdered By: Ct Hairston on 11-07-2022 Free T4 [Mass/Vol] 0.73 ng/dL 0.76-1.46 [facility] - Hematology and Cell countsOrdered By: Ct Hairston on 11-07-2022 Erythrocyte distribution width (RBC) [Entitic vol] 43.9 fL 35.1-43.9 [facility] Erythrocyte distribution width (RBC) [Ratio] 17.4 % 11.6-14.6 [facility] Immature granulocytes/100 WBC (Bld) 0.400 % 0.0-0.9 [facility] Comment on above: IG% - Immature Granu locytes (promyelocytes, myelocytes and metamyelocytes) > 1% indicates that a LEFT SHIFT is Present. MCH (RBC) [Entitic mass] 20.0 pg 27.0-32.0 [facility] Nucleated RBC/100 WBC (Bld) [Ratio] 0 % 0-5 [facility] MCHC Auto (RBC) [Mass/Vol]Or dered By: Ct Hairston on 11-07-2022 MCHC (RBC) [Mass/Vol] 28.3 g/dL 32-36 [facility] No Panel InformationOrdered By: Ct Hairston on 11-07-2022 Follicle Stimulating Hormone 11.4 mIU/mL [facility] Comment on above: NORMAL REFERENCE RAN [facility] FEMALE FOLLICULAR 2.3 - 12.6 mIU/mL MID-CYCLE PEAK 5.2 - 17.5 mIU/mL LUTEAL 1.7 - 12.9 mIU/mL POST-MENOPAUSAL ON MHT 5.9 - 72.8 mIU/mL NOT ON MHT 12.7 - 132.2 mlU/mL MALE 0.7 - 10.8 mIU/mL Luteinizing Hormone 6.9 mIU/mL [facility] Comment on above: NORMAL REFERENCE RAN [facility] FEMALE FOLLICULAR 1.9 - 26.2 mIU/mL MID-CYCLE PEAK 22.8 - 76.1 mIU/mL LUTEAL 0.6 - 16.6 mIU/mL POST-MENOPAUSAL ON MHT 1.1 - 52.4 mIU/mL NOT ON MHT 8.6 - 61.8 mIU/mL MALE 1.2 - 10.6 mIU/mL Thyroid Stimulating Hormone (TSH) 2.60 uIU/mL 0.358-3.74 [facility] Platelets bldOrdered By: Marina Hairston on 11-07-2022 Platelets (Bld) [#/Vol] 369 10*3/uL 150-450 [facility] Prolactinon 11-07-2022 PROLACTIN 6.6 ng/mL Normal [facility] Comment on above: Result Comment: NORMAL REFERENCE RANGES FEMALE NON- 2.2 - 30.3 ng/mL 8.1 - 347.6 ng/mL POST-MENOPAUSAL 0.7 - 31.5 ng/mL MALE 2.5 - 17.4 ng/mL Performed By: #### L 100.0100, L700.8000, L501.9520, L506.0400, L3100.5055, L3100.5420, [id number] #### [facility] [address] [place], [place], [address] Serum or plasma choriogonado tropin detectionOrdered By: Ct Hairston on 11-07-2022 HCG ( test) Ql < 1 mIU/mL <4 [facility] Comment on above: hCG levels with Gest ational AgeGestational Age hCG mIU/mL (IU/L)0.2 - 1 week 5 - 501-2 weeks 50 - 5002-3 weeks 100 - 71449-0 weeks 500 - 864487-3 weeks 1000 - 521372-8 weeks 94362 - 100,0006-8 weeks 18419 - 200,0002-3 months 13766 - 100,000 Serum or plasma estradiol (E 2) measurement (mass/volume)Ordered By: Ct Hairston on 11-07-2022 E2 [Mass/Vol] 53.1 pg/mL [facility] Comment on above: NORMAL REFERENCE RAN GES FEMALE FOLLICULAR 21.4 - 164.8 pg/mL MID-CYCLE PEAK 49.9 - 367.2 pg/mL LUTEAL 40.2 - 259.0 pg/mL POST-MENOPAUSAL ON MHT <11.0 - 462.1 pg/mL NOT ON MHT <11.0 - 58.3 pg/mL MALE <11.0 - 52.5 pg/mL NOTE:[employer] HAS CONFIRMED THE DRUG FULVETRANT (FASLODEX) MAY CAUSE FALSELY ELEVATED ESTRADIOL RESULTS WHEN USING THIS TEST METHOD. IF PATIENT IS TAKING FULVESTRANT AN ALTERNATIVE METHOD SHOULD BE USED TO DETERMINE ESTRADIOL CONCENTRATION. Serum or plasma ferritin deb surement (mass/volume)Ordered By: Ct Hairston on 11-07-2022 Ferritin [Mass/Vol] 11 ng/mL 8-252 [facility] Serum or plasma prolactin me asurement (mass/volume)Ordered By: Ct Hairston on 11-07-2022 Prolactin [Mass/Vol] 6.6 ng/mL [facility] Comment on above: NORMAL REFERENCE RAN GES FEMALE NON- 2.2 - 30.3 ng/mL 8.1 - 347.6 ng/mL POST-MENOPAUSAL 0.7 - 31.5 ng/mL MALE 2.5 - 17.4 ng/mL T4 Free Directon 11-07-2022 T4 FREE DIRECT 0.73 ng/dL Low 0.76-1.46 [facility] Comment on above: Performed By: #### L 100.0100, L700.8000, L501.9520, L506.0400, L3100.5055, L3100.5420, [id number] #### [facility] [address], [place], [id number] ([phone] Thyroid Stim Hormone (TSH)on 11-07-2022 TSH 2.60 uIU/mL Normal 0.358-3.74 [facility] Comment on above: Performed By: #### L 100.0100, L700.8000, L501.9520, L506.0400, L3100.5055, L3100.5420, [id number] #### [facility] [address], [place], [id number] ([phone] hCG Titer Quant., Serumon HCG QUANT. < 1 Normal 1-3 [facility] Comment on above: Result Comment: hCG levels with Gestational Age Gestational Age hCG mIU/mL (IU/L) 0.2 - 1 week 5 - 50 1-2 weeks 50 - 500 2-3 weeks 100 - 5000 3-4 weeks 500 - 21656 4-5 weeks 1000 - 92751 5-6 weeks 68824 - 100,000 6-8 weeks 79943 - 200,000 2-3 months 25511 - 100,000 Performed By: #### L 100.0100, L700.8000, L501.9520, L506.0400, L3100.5055, L3100.5420, [id number] #### [facility] [address] [place], [address] Laboratory - Chemistry and C hemistry - challengeon 09-11-2022 Albumin [Mass/Vol] 3.7 g/dL Normal 3.4 - 5.0 g/dL [facility]; [facility] Work Phone: Albumin [Mass/Vol] 1.1 g/dL Normal 0.9 - 1.6 [facility] Work Phone: ALT [Catalytic activity/Vol] 25 U/L Normal 14 - 59 U/L [facility]; [facility] Work Phone: Anion gap [Moles/Vol] 10 mmol/L Normal 10 - 2 0 mmol/L [facility]; [facility] Work Phone: AST [Catalytic activity/Vol] 20 U/L Normal 13 - 39 U/L [facility]; [facility] Work Phone: Bilirubin [Mass/Vol] 0.1 mg/dL Abnormal 0.2 - 1 .0 mg/dL [facility]; [facility] Work Phone: Calcium [Mass/Vol] 8.6 mg/dL Normal 8.5 - 10. 1 mg/dL [facility]; [facility]. Work Phone: Chloride [Moles/Vol] 102 mmol/L Normal 98 - 10 7 mmol/L [facility]; [facility]. Work Phone: CO2 [Moles/Vol] 27.5 mmol/L Normal 21.0 - 32.0 mmol/L [facility]; [facility]. Work Phone: Creatinine [Mass/Vol] 0.58 mg/dL Normal 0.55 - 1.02 mg/dL [facility]; [facility] Work Phone: GFR/1.73 sq M.predicted among blacks MDRD (S/P/Bld) [Vol rate/Area] mL/min/{1.73_m2} Normal 60 - 999 {ML/MINUTE} [facility]. Work Phone: GFR/1.73 sq M.predicted MDRD (S/P/Bld) [Vol rate/Area] mL/min/{1.73_m2} Normal 60 - 999 {ML/MINUTE} [facility], [facility]. Work Phone: Globulin (S) [Mass/Vol] 3.5 g/dL Normal 1.5 - 3.8 g/dL [facility]; [facility]. Work Phone: Glucose [Mass/Vol] 107 mg/dL Abnormal 74 - 106 mg/dL [facility]; [facility], [facility]. Work Phone: Potassium [Moles/Vol] 3.5 mmol/L Normal 3.5 - 5.1 mmol/L [facility]; [facility] Work Phone: Protein [Mass/Vol] 7.2 g/dL Normal 6.4 - 8.2 g/dL [facility]; [facility] Work Phone: Sodium [Moles/Vol] 136 mmol/L Normal 136 - 145 mmol/L [facility]; [facility] Work Phone: Urea nitrogen [Mass/Vol] 14 mg/dL Normal 7 - 18 mg/dL [facility]; [facility]. Work Phone: Urea nitrogen/Creatinine [Mass ratio] 24 {ratio} Normal 0 - 30 {ratio} [facility]; [facility] Work Phone: Laboratory - Drug toxicology on 09-11-2022 Phenytoin [Mass/Vol] 9.3 ug/mL Abnormal 10.0 - 20.0 ug/ml [facility]; [facility]. Work Phone: Laboratory - Hematology and Cell countson 09-11-2022 Basophils (Bld) [#/Vol] 0.00 {x10EE3/UL} Normal 0.00 - 0.10 {x10EE3/UL} [facility].; [facility]. Work Phone: Basophils/100 WBC (Bld) 0.9 % Normal 0.0 - 2.0 % [facility]; [facility]. Work Phone: Eosinophils (Bld) [#/Vol] 0.10 {x10EE3/UL} Normal 0.00 - 0.50 {x10EE3/UL} [facility]; [facility]. Work Phone: Eosinophils/100 WBC (Bld) 1.7 % Normal 0.0 - 7.0 % [facility]; [facility] Work Phone: Erythrocyte distribution width (RBC) [Ratio] 17.4 % Abnormal 12.0 - 15.6 % [facility]; [facility] Work Phone: Hematocrit (Bld) [Volume fraction] 29.3 % Abnormal 34.0 - 46.0 % [facility]; [facility] Work Phone: Hemoglobin (Bld) [Mass/Vol] 8.9 g/dL Abnormal 12.0 - 16.0 g/dL [facility]; [facility] Work Phone: Lymphocytes (Bld) [#/Vol] 1.80 {x10EE3/UL} Normal 0.80 - 2.80 {x10EE3/UL} [facility]; [facility] Work Phone: Lymphocytes/100 WBC (Bld) 43.9 % Normal 20.0 - 45.0 % [facility]; [facility] Work Phone: MCH (RBC) [Entitic mass] 20 pg Abnormal 27 - 33 pg [facility]; [facility] Work Phone: MCHC (RBC) [Mass/Vol] 31 {X10_3} Abnormal 32 - 3 6 {X10_3} [facility]; [facility] Work Phone: MCV (RBC) [Entitic vol] 66 fL Abnormal 80 - 99 fL [facility]; [facility] Work Phone: Monocytes (Bld) [#/Vol] 0.30 {x10EE3/UL} Normal 0.20 - 1.00 {x10EE3/UL} [facility].; [facility]. Work Phone: Monocytes/100 WBC (Bld) 7.3 % Normal 0.0 - 10.0 % [facility]; [facility]. Work Phone: Morphology Blake (Bld) [Interp] N/A Normal [facility]; [facility]. Work Phone: Neutrophils (Bld) [#/Vol] 1.90 {x10EE3/UL} Normal 1.50 - 7.10 {x10EE3/UL} [facility].; [facility]. Work Phone: Neutrophils/100 WBC (Bld) 46.2 % Normal 46.0 - 76.0 % [facility].; [facility]. Work Phone: Platelet mean volume (Bld) [Entitic vol] 9.6 fL Normal 6.6 - 10.5 fL [facility]; [facility]. Work Phone: Platelets (Bld) [#/Vol] 247 {x10EE3/UL} Normal 150 - 450 {x10EE3/UL} [facility].; [facility]. Work Phone: RBC (Bld) [#/Vol] 4.47 {x_10EE6/UL} Normal 4.10 - 5.30 {x_10EE6/UL} [facility].; [facility]. Work Phone: WBC (Bld) [#/Vol] 4.1 {x_10EE3/UL} Abnormal 4.5 - 10.8 {x_10EE3/UL} [facility]. Work Phone: No Panel Informationon 09-11 AGE 46 {years} Normal [facility]; [facility] Work Phone: ALK PHOS 103 U/L Normal 46 - 116 U/L [facility]; [facility]. Work Phone: CBC + DIFF Normal [facility]; [facility]. Work Phone: CMP with eGFR Normal [facility]; [facility]. Work Phone: MANUAL DIFF N/A Normal [facility]; [facility] Work Phone: Laboratory - Chemistry and C hemistry - challengeon 08-23-2022 Albumin [Mass/Vol] 3.5 g/dL Normal 3.4 - 5.0 g/dL [facility]; [facility]. Work Phone: Albumin [Mass/Vol] 1.0 g/dL Normal 0.9 - 1.6 [facility]; [facility] Work Phone: ALT [Catalytic activity/Vol] 17 U/L Normal 14 - 59 U/L [facility]; [facility]. Work Phone: Anion gap [Moles/Vol] 15 mmol/L Normal 10 - 2 0 mmol/L [facility]; [facility] Work Phone: AST [Catalytic activity/Vol] 22 U/L Normal 13 - 39 U/L [facility]; [facility] Work Phone: Bilirubin [Mass/Vol] 0.1 mg/dL Abnormal 0.2 - 1 .0 mg/dL [facility]; [facility] Work Phone: Calcium [Mass/Vol] 8.1 mg/dL Abnormal 8.5 - 10. 1 mg/dL [facility]; [facility] Work Phone: Chloride [Moles/Vol] 106 mmol/L Normal 98 - 10 7 mmol/L [facility]; [facility] Work Phone: CO2 [Moles/Vol] 25.0 mmol/L Normal 21.0 - 32.0 mmol/L [facility]; [facility] Work Phone: Creatinine [Mass/Vol] 0.49 mg/dL Abnormal 0.55 - 1.02 mg/dL [facility]; [facility] Work Phone: GFR/1.73 sq M.predicted among blacks MDRD (S/P/Bld) [Vol rate/Area] mL/min/{1.73_m2} Normal 60 - 999 {ML/MINUTE} [facility]; [facility]. Work Phone: GFR/1.73 sq M.predicted MDRD (S/P/Bld) [Vol rate/Area] mL/min/{1.73_m2} Normal 60 - 999 {ML/MINUTE} [facility]. Work Phone: Globulin (S) [Mass/Vol] 3.5 g/dL Normal 1.5 - 3.8 g/dL [facility]; [facility]. Work Phone: Glucose [Mass/Vol] 86 mg/dL Normal 74 - 106 mg/dL [facility]; [facility] Work Phone: Potassium [Moles/Vol] 3.8 mmol/L Normal 3.5 - 5.1 mmol/L [facility]; [facility] Work Phone: Protein [Mass/Vol] 7.0 g/dL Normal 6.4 - 8.2 g/dL [facility]; [facility] Work Phone: Sodium [Moles/Vol] 142 mmol/L Normal 136 - 145 mmol/L [facility]; [facility] Work Phone: Urea nitrogen [Mass/Vol] 10 mg/dL Normal 7 - 18 mg/dL [facility]; [facility] Work Phone: Urea nitrogen/Creatinine [Mass ratio] 20 {ratio} Normal 0 - 30 {ratio} [facility]; [facility] Work Phone: Laboratory - Drug toxicology on 08-23-2022 Phenytoin [Mass/Vol] 28.3 ug/mL Abnormal 10.0 - 20.0 ug/ml [facility]; [facility] Work Phone: Laboratory - Hematology and Cell countson 08-23-2022 Basophils (Bld) [#/Vol] 0.00 {x10EE3/UL} Normal 0.00 - 0.10 {x10EE3/UL} [facility]; [facility]. Work Phone: Basophils/100 WBC (Bld) 0.7 % Normal 0.0 - 2.0 % [facility]; [facility] Work Phone: Eosinophils (Bld) [#/Vol] 0.00 {x10EE3/UL} Normal 0.00 - 0.50 {x10EE3/UL} [facility]; [facility]. Work Phone: Eosinophils/100 WBC (Bld) 0.8 % Normal 0.0 - 7.0 % [facility]; [facility] Work Phone: Erythrocyte distribution width (RBC) [Ratio] 16.6 % Abnormal 12.0 - 15.6 % [facility]; [facility] Work Phone: Hematocrit (Bld) [Volume fraction] 28.3 % Abnormal 34.0 - 46.0 % [facility]; [facility] Work Phone: Hemoglobin (Bld) [Mass/Vol] 8.7 g/dL Abnormal 12.0 - 16.0 g/dL [facility]; [facility]. Work Phone: Lymphocytes (Bld) [#/Vol] 1.50 {x10EE3/UL} Normal 0.80 - 2.80 {x10EE3/UL} [facility]; [facility], [facility]. Work Phone: Lymphocytes/100 WBC (Bld) 41.6 % Normal 20.0 - 45.0 % [facility]; [facility]. Work Phone: MCH (RBC) [Entitic mass] 20 pg Abnormal 27 - 33 pg [facility]; [facility]. Work Phone: MCHC (RBC) [Mass/Vol] 31 {X10_3} Abnormal 32 - 3 6 {X10_3} [facility]; [facility], [facility]. Work Phone: MCV (RBC) [Entitic vol] 65 fL Abnormal 80 - 99 fL [facility] [employer]; [facility]. Work Phone: Monocytes (Bld) [#/Vol] 0.30 {x10EE3/UL} Normal 0.20 - 1.00 {x10EE3/UL} [facility].; [facility]. Work Phone: Monocytes/100 WBC (Bld) 7.4 % Normal 0.0 - 10.0 % [facility]; [facility]. Work Phone: Morphology Blake (Bld) [Interp] SEE BELOW Normal [facility]; [facility] Work Phone: Neutrophils (Bld) [#/Vol] 1.80 {x10EE3/UL} Normal 1.50 - 7.10 {x10EE3/UL} [facility].; [facility]. Work Phone: Neutrophils/100 WBC (Bld) 49.5 % Normal 46.0 - 76.0 % [facility]; [facility]. Work Phone: Platelet mean volume (Bld) [Entitic vol] 8.8 fL Normal 6.6 - 10.5 fL [facility]; [facility]. Work Phone: Platelets (Bld) [#/Vol] 334 {x10EE3/UL} Normal 150 - 450 {x10EE3/UL} [facility].; [facility]. Work Phone: RBC (Bld) [#/Vol] 4.38 {x_10EE6/UL} Normal 4.10 - 5.30 {x_10EE6/UL} [facility].; [facility]. Work Phone: WBC (Bld) [#/Vol] 3.6 {x_10EE3/UL} Abnormal 4.5 - 10.8 {x_10EE3/UL} [facility].; [facility], [facility]. Work Phone: No Panel Informationon 08-23 AGE 46 {years} Normal [facility].; [facility], [facility]. Work Phone: ALK PHOS 96 U/L Normal 46 - 116 U/L [facility].; [facility], [facility]. Work Phone: CBC + DIFF Normal [facility].; [facility], [facility]. Work Phone: CMP with eGFR Normal [facility].; [facility], [facility]. Work Phone: HYPOCHROM 2+ Normal [facility].; [facility], [facility]. Work Phone: MANUAL DIFF N/A Normal [facility].; [facility], [facility]. Work Phone: MICROCYTES 3+ Normal [facility].; [facility], [facility]. Work Phone: POIKILO 1+ Normal [facility].; [facility], [facility]. Work Phone: Laboratory - Chemistry and C hemistry - challengeon 05-29-2022 Albumin BCP dye [Mass/Vol] 3.4 g/dL Normal 3.2 - 4.8 g/dL [facility].; [facility], [facility]. Albumin/Globulin [Mass ratio] 1.0 {ratio} Normal 0.9 - 1.6 {ratio} [facility].; [facility], [employer]. ALP [Catalytic activity/Vol] 120 U/L Normal 38 - 126 U/L [facility].; [facility], [facility]. ALT No additional P-5'-P [Catalytic activity/Vol] 26 U/L Normal 10 - 49 U/L [facility]; [facility]. ALT With P-5'-P [Catalytic activity/Vol] 26 U/L Normal 10 - 49 U/L [facility] AST [Catalytic activity/Vol] 16 U/L Normal 8 - 34 U/L [facility]. AST With P-5'-P [Catalytic activity/Vol] 16 U/L Normal 8 - 34 U/L [facility] Bilirubin [Mass/Vol] mg/dL Normal 0.20 - 1.20 mg/dL [facility], [facility] Calcium [Mass/Vol] 9.0 mg/dL Normal 8.7 - 10. 4 mg/dL [facility]; [facility]. Chloride [Moles/Vol] 106 mmol/L Normal 98 - 11 0 meq/L [facility]; [facility]. Cholesterol [Mass/Vol] 145 mg/dL Normal 50 - 199 mg/dL [facility]; [facility]. Cholesterol in HDL [Mass/Vol] 46 mg/dL Normal 40 - 59 mg/dL [facility]. Cholesterol in LDL [Mass/Vol] 77 mg/dL Normal 0 - 129 mg/dL [facility]. CO2 [Moles/Vol] 29 mmol/L Normal 22 - 32 meq/L [facility], [facility]. Creatinine [Mass/Vol] 0.46 mg/dL Abnormal 0.50 - 1.20 mg/dL [facility]; [facility], [facility] GFR/1.73 sq M.predicted among blacks MDRD (S/P/Bld) [Vol rate/Area] mL/min/{1.73_m2} Normal [facility], [facility]. Work Phone: GFR/1.73 sq M.predicted among non-blacks MDRD (S/P/Bld) [Vol rate/Area] mL/min/{1.73_m2} Normal [facility].; [facility], [facility]. Work Phone: Globulin (S) [Mass/Vol] 3.4 g/dL Normal 1.5 - 3.8 g/dL [facility]; [facility], [facility]. Glucose [Mass/Vol] 124 mg/dL Abnormal 70 - 110 mg/dL [facility], [facility] Iron [Mass/Vol] 21 ug/dL Abnormal 50 - 170 ug/dL [facility], [facility]. Magnesium [Mass/Vol] 1.8 mg/dL Normal 1.6 - 2 .4 mg/dL [facility], [facility]. Potassium [Moles/Vol] 4.0 mmol/L Normal 3.5 - 5.0 meq/L [facility].; [facility], [facility] Protein [Mass/Vol] 6.8 g/dL Normal 5.7 - 8.2 g/dL [facility].; [facility], [facility]. Sodium [Moles/Vol] 141 mmol/L Normal 136 - 145 meq/L [facility].; [facility], [facility]. Triglyceride [Mass/Vol] 112 mg/dL Normal 3 - 149 mg/dL [facility], [facility]. TSH Qn 3.274 m[IU]/L Normal 0.550 - 4.780 m[iU]/mL [facility]; [facility] [employer] Urea nitrogen [Mass/Vol] 12.0 mg/dL Normal 8.0 - 22.0 mg/dL [facility]; [facility] Urea nitrogen/Creatinine [Mass ratio] 26.1 {ratio} Abnormal 10.0 - 22.0 {ratio} [facility]; [facility] Laboratory - Hematology and Cell countson 05-29-2022 Acanthocytes LM Ql (Bld) 1+-1+ Normal [facility]; [facility] Work Phone: Anisocytosis Ql (Bld) 1+-1+ Normal [facility]; [facility] Center[facility] Work Phone: Basophils (Bld) [#/Vol] 0.0 {10^3/mcL} Normal 0.0 - 0.3 {10^3/mcL} [facility]; [facility] Work Phone: Basophils/100 WBC (Bld) 0.4 % Normal 0.0 - 2.5 % [facility]; [facility] Work Phone: Eosinophils (Bld) [#/Vol] 0.1 {10^3/mcL} Normal 0.0 - 0.7 {10^3/mcL} [facility]; [facility] Work Phone: Eosinophils/100 WBC (Bld) 2.6 % Normal 0.0 - 6.0 % [facility]; [facility] Work Phone: Erythrocyte distribution width (RBC) [Ratio] 18.5 % Abnormal 11.5 - 15.5 % [facility]; [facility] Hematocrit (Bld) [Volume fraction] 29.0 % Abnormal 34.0 - 46.0 % [facility]; [facility] Center[facility] Cover[facility] [employer] Hemoglobin (Bld) [Mass/Vol] 9.0 g/dL Abnormal 12.0 - 16.0 g/dL [facility], [facility] Hypochromia Ql (Bld) 1+-1+ Normal [facility].; [facility], [facility]. Work Phone: Lymphocytes (Bld) [#/Vol] 1.1 {10^3/mcL} Normal 0.9 - 4.3 {10^3/mcL} [facility].; [facility], [facility]. Work Phone: Lymphocytes/100 WBC (Bld) 25.0 % Normal 20.0 - 40.0 % [facility].; [facility], [facility]. Work Phone: MCH (RBC) [Entitic mass] 19.3 pg Abnormal 27.0 - 33.0 pg [facility].; [facility], [facility]. MCHC (RBC) [Mass/Vol] 31.0 g/dL Abnormal 32.0 - 36.0 g/dL [facility], [facility]. MCV (RBC) [Entitic vol] 62.1 fL Abnormal 80.0 - 99.0 fL [facility].; [facility], [facility]. Microcytes Ql (Bld) 2+-2+ Normal [facility].; [facility], [facility]. Work Phone: Monocytes (Bld) [#/Vol] 0.3 {10^3/mcL} Normal 0.1 - 1.4 {10^3/mcL} [facility].; [facility], [facility]. Work Phone: Monocytes/100 WBC (Bld) 8.0 % Normal 2.0 - 13.0 % [facility].; [facility], [facility]. Work Phone: Neutrophils (Bld) [#/Vol] 2.7 {10^3/mcL} Normal 2.3 - 8.1 {10^3/mcL} [facility] [employer] [facility] [place] [place] [employer] [facility] [employer] [facility] [place], [employer]. Work Phone: Neutrophils/100 WBC (Bld) 64.0 % Normal 50.0 - 75.0 % [facility] [employer] [facility] [place].; [place] [employer] [facility] [employer] [facility] [place], [employer] Work Phone: Ovalocytes LM Ql (Bld) 1+-1+ Normal [facility] Philadelphia[facility] [employer] [facility] [place].; [place] [employer] [facility] [employer] [facility] [place], [employer]. Work Phone: Platelet mean volume (Bld) [Entitic vol] 9.1 fL Normal 6.6 - 10.5 fL [facility] Philadelphia[facility] [employer] [facility] [place].; [place] [employer] [facility] [employer] [facility] [place], [employer]. Platelets (Bld) [#/Vol] 304 {10^3/mcL} Normal 150 - 450 {10^3/mcL} [facility] Philadelphia[facility].; [employer] [facility] Child [employer] [facility] [place], [employer] Platelets LM Ql (Bld) Normal-Adequate Normal [facility].; [employer] [facility] Child [employer] [facility] [place], Inc[employer] Work Phone: Poikilocytosis LM Ql (Bld) 1+-1+ Normal [facility].; [employer] [facility] [employer] [facility] [place], [employer] Work Phone: RBC (Bld) [#/Vol] 4.66 {10^6/mcL} Normal 4.10 - 5.30 {10^6/mcL} [facility] [employer] [facility] [place].; [facility] [employer] [facility] [place], Inc[employer] WBC (Bld) [#/Vol] 4.3 {10^3/mcL} Abnormal 4.5 - 10 .8 {10^3/mcL} [facility] [employer] [place] [employer] [facility] [employer] [facility] [place], [employer]. No Panel Informationon 05-29 Basophil, Absolute 0.0 {10^3/mcL} Normal 0.0 - 0 .3 {10^3/mcL} [facility].; [facility]. Work Phone: Electrolyte Balance 6.0 meq/L Normal 4.0 - 15 .0 meq/L [facility].; [facility], [facility]. Eosinophil, Absolute 0.1 {10^3/mcL} Normal 0.0 - 0.7 {10^3/mcL} [facility].; [facility], [facility]. Work Phone: Lymphocyte, Absolute 1.1 {10^3/mcL} Normal 0.9 - 4.3 {10^3/mcL} [facility].; [facility], [facility]. Work Phone: Monocyte, Absolute 0.3 {10^3/mcL} Normal 0.1 - 1 .4 {10^3/mcL} [facility].; [facility], [facility]. Work Phone: Neutrophil, Absolute 2.7 {10^3/mcL} Normal 2.3 - 8.1 {10^3/mcL} [facility].; [facility], [facility]. Work Phone: Laboratory - Chemistry and C hemistry - challengeon 11-14-2021 Albumin BCP dye [Mass/Vol] 3.4 g/dL Normal 3.2 - 4.8 g/dL [facility].; [facility], [facility]. Albumin/Globulin [Mass ratio] 0.8 {ratio} Abnormal 0.9 - 1.6 {ratio} [facility].; [facility], [facility]. ALP [Catalytic activity/Vol] 118 U/L Normal 38 - 126 U/L [facility].; [facility], [facility]. ALT No additional P-5'-P [Catalytic activity/Vol] 29 U/L Normal 10 - 49 U/L [facility].; [facility], [facility]. ALT With P-5'-P [Catalytic activity/Vol] 29 U/L Normal 10 - 49 U/L [facility]. AST [Catalytic activity/Vol] 30 U/L Normal 8 - 34 U/L [facility]. AST With P-5'-P [Catalytic activity/Vol] 30 U/L Normal 8 - 34 U/L [facility].; [facility]. Bilirubin [Mass/Vol] mg/dL Normal 0.20 - 1.20 mg/dL [facility].; [facility] Calcium [Mass/Vol] 9.1 mg/dL Normal 8.7 - 10. 4 mg/dL [facility]; [facility] Chloride [Moles/Vol] 107 mmol/L Normal 98 - 11 0 meq/L [facility].; [facility] CO2 [Moles/Vol] 27 mmol/L Normal 22 - 32 meq/L [facility]; [facility] Creatinine [Mass/Vol] 0.41 mg/dL Abnormal 0.50 - 1.20 mg/dL [facility]; [facility]. GFR/1.73 sq M.predicted among blacks MDRD (S/P/Bld) [Vol rate/Area] mL/min/{1.73_m2} Normal [facility].; [facility] Work Phone: GFR/1.73 sq M.predicted among non-blacks MDRD (S/P/Bld) [Vol rate/Area] mL/min/{1.73_m2} Normal [facility], [facility]. Work Phone: Globulin (S) [Mass/Vol] 4.0 g/dL Abnormal 1.5 - 3.8 g/dL [facility]; [facility] Glucose [Mass/Vol] 78 mg/dL Normal 70 - 110 mg/dL [facility]; [facility] Magnesium [Mass/Vol] 2.0 mg/dL Normal 1.6 - 2 .4 mg/dL [facility]; [facility] Potassium [Moles/Vol] 4.8 mmol/L Normal 3.5 - 5.0 meq/L [facility]; [facility] Protein [Mass/Vol] 7.4 g/dL Normal 5.7 - 8.2 g/dL [facility]; [facility] Sodium [Moles/Vol] 138 mmol/L Normal 136 - 145 meq/L [facility]; [facility] Urea nitrogen [Mass/Vol] 11.0 mg/dL Normal 8.0 - 22.0 mg/dL [facility]; [facility] Urea nitrogen/Creatinine [Mass ratio] 26.8 {ratio} Abnormal 10.0 - 22.0 {ratio} [facility]; [facility] Laboratory - Hematology and Cell countson 11-14-2021 Anisocytosis Ql (Bld) 3+-3+ Normal [facility]; [facility] Work Phone: Basophils (Bld) [#/Vol] 0.2 {10^3/mcL} Normal 0.0 - 0.3 {10^3/mcL} [facility]; [facility], [facility] Work Phone: Basophils/100 WBC (Bld) 2.0 % Normal 0.0 - 2.5 % [facility]; [facility], [facility] Work Phone: Sapna cells LM Ql (Bld) 1+-1+ Normal [facility]; [facility] Center[facility]. Work Phone: Eosinophils (Bld) [#/Vol] 0.0 {10^3/mcL} Normal 0.0 - 0.7 {10^3/mcL} [facility].; [facility], [facility]. Work Phone: Eosinophils/100 WBC (Bld) 0.0 % Normal 0.0 - 6.0 % [facility].; [facility]. Work Phone: Erythrocyte distribution width (RBC) [Ratio] % Abnormal 11.5 - 15.5 % [facility].; [facility] Hematocrit (Bld) [Volume fraction] 32.8 % Abnormal 34.0 - 46.0 % [facility].; [facility] Hemoglobin (Bld) [Mass/Vol] 8.8 g/dL Abnormal 12.0 - 16.0 g/dL [facility].; [facility] Hypochromia Ql (Bld) 2+-2+ Normal [facility] HospitalMeetBall; [facility] Work Phone: Lymphocytes (Bld) [#/Vol] 2.6 {10^3/mcL} Normal 0.9 - 4.3 {10^3/mcL} [facility].; [facility], [facility]. Work Phone: Lymphocytes/100 WBC (Bld) 35.0 % Normal 20.0 - 40.0 % [facility].; [facility], [facility]. Work Phone: MCH (RBC) [Entitic mass] 15.5 pg Abnormal 27.0 - 33.0 pg [facility].; [facility]. MCHC (RBC) [Mass/Vol] 26.8 g/dL Abnormal 32.0 - 36.0 g/dL [facility] HospitalH[facility].; [facility], [facility]. MCV (RBC) [Entitic vol] 57.8 fL Abnormal 80.0 - 99.0 fL [facility].; [facility], [facility]. Microcytes Ql (Bld) 3+-3+ Normal [facility].; [facility], [facility]. Work Phone: Monocyte distribution width Auto (Bld) [Entitic vol] Not Performed-Not Performed Normal 0.00 - 20.00 [facility].; [facility], [facility]. Work Phone: Monocytes (Bld) [#/Vol] 0.4 {10^3/mcL} Normal 0.1 - 1.4 {10^3/mcL} [facility].; [facility], [facility]. Work Phone: Monocytes/100 WBC (Bld) 5.0 % Normal 2.0 - 13.0 % [facility].; [facility], [facility]. Work Phone: Neutrophils (Bld) [#/Vol] 4.3 {10^3/mcL} Normal 2.3 - 8.1 {10^3/mcL} [facility].; [facility], [facility]. Work Phone: Neutrophils/100 WBC (Bld) 58.0 % Normal 50.0 - 75.0 % [facility].; [facility], [facility]. Work Phone: Ovalocytes LM Ql (Bld) 1+-1+ Normal [facility] [employer] [facility] [place] [employer].; [facility], [facility]. Work Phone: Platelet mean volume (Bld) [Entitic vol] 9.7 fL Normal 6.6 - 10.5 fL [facility] [employer] [facility] [place].; [facility], [facility]. Platelets (Bld) [#/Vol] 394 {10^3/mcL} Normal 150 - 450 {10^3/mcL} [facility].; [facility] Platelets LM Ql (Bld) Normal-Adequate Normal [facility].; [facility]. Work Phone: Poikilocytosis LM Ql (Bld) 2+-2+ Normal [facility].; [facility]. Work Phone: RBC (Bld) [#/Vol] 5.67 {10^6/mcL} Abnormal 4.10 - 5.30 {10^6/mcL} [facility].; [facility]. WBC (Bld) [#/Vol] 7.5 {10^3/mcL} Normal 4.5 - 10 .8 {10^3/mcL} [facility] [employer].; [facility]. No Panel Informationon 11-14 Electrolyte Balance 4.0 meq/L Normal 4.0 - 15 .0 meq/L [facility].; [facility] Nucleated RBC 0.0 {/100_WBC} Normal [facility].; [facility] Center[facility]. Work Phone: Tear Cell 1+-1+ Normal [facility].; [facility] Work Phone: Vital Signs Date Time Vital Sign Value Performing Clinician Faci lity 11-30-2024 08:49-0400 Body height 162.[address] Orlando Snow MD Work Phone: [facility] 11-30-2024 08:49-0400 Body mass index (BMI) [Ratio] 24.3 kg/m2 Dr. Orlando Snow MD Work Phone: [facility] 11-30-2024 08:49-0400 Body temperature 98.4 [degF] Dr. Orlando Snow MD Work Phone: [facility] 11-30-2024 08:49-0400 Body weight 64.[address] Orlando Snow MD Work Phone: [facility] 11-30-2024 08:49-0400 Diastolic blood pressure 81 mm[Hg] Dr. Orlando Snow MD Work Phone: [facility] 11-30-2024 08:49-0400 Heart rate 64 /min Dr. Orlando Snow MD Work Phone: [facility] 11-30-2024 08:49-0400 Respiratory rate 15 /min Dr. Orlando Snow MD Work Phone: [facility] 11-30-2024 08:49-0400 SaO2% (BldA) [Mass fraction] 99 % Dr. Orlando Snow MD Work Phone: [facility] 11-30-2024 08:49-0400 Systolic blood pressure 123 mm[Hg] Dr. Orlando Snow MD Work Phone: [facility] 05-12-2024 13:10-0500 Body height 162.56 cm Jagruti Gonzales RN [facility], [facility].; [facility], [facility]. 05-12-2024 13:10-0500 Body mass index (BMI) [Ratio] 24.03 kg/m2 Jagruti Gonzales RN [facility], [facility].; [facility], [facility]. 05-12-2024 13:10-0500 Body surface area Derived from formula 1.68 m2 Jagruti Gonzales RN [facility], [facility].; [facility], [facility]. 05-12-2024 13:10-0500 Body weight 63.5 kg Jagruti Gonzales RN [facility], [facility].; [facility], [facility]. 05-12-2024 13:10-0500 Diastolic blood pressure 84 mm[Hg] Jagruti Gonzales RN [facility] Comment on above: Patient Position: Sitting; Cuff Location : Left Arm; Cuff Size: Large 05-12-2024 13:10-0500 Heart rate 80 /min Jagruti Gonzales RN [facility] [employer] [facility] [place], [employer] Comment on above: Pattern: Regular 05-12-2024 13:10-0500 Systolic blood pressure 128 mm[Hg] Jagruti Gonzales RN [facility] Comment on above: Patient Position: Sitting; Cuff Location : Left Arm; Cuff Size: Large 11-14-2023 10:45-0400 Body height 162.56 cm Regine Overholt [facility] [employer] [facility] [facility] [place] 11-14-2023 10:45-0400 Body mass index (BMI) [Ratio] 26.09 kg/m2 Regine Overholt [facility] [employer] [facility] [place] 11-14-2023 10:45-0400 Body surface area Derived from formula 1.74 m2 Regine Overholt [facility] [employer] [facility] [place] 11-14-2023 10:45-0400 Body weight 68.95 kg Regine Overholt [facility] [employer] [facility] [place] 11-14-2023 10:45-0400 Diastolic blood pressure 64 mm[Hg] Regine [facility]holt [facility] [place] [employer] [facility] [place] Comment on above: Patient Position: Sitting; Cuff Location : Left Arm; Cuff Size: Standard 11-14-2023 10:45-0400 Heart rate 65 /min Regine Overholt [facility] [place] [employer] [facility] [employer] [facility] [place] Comment on above: Pattern: Regular 11-14-2023 10:45-0400 Systolic blood pressure 97 mm[Hg] Regine Overholt [facility] [place] [employer] [facility] [place] Comment on above: Patient Position: Sitting; Cuff Location : Left Arm; Cuff Size: Standard 05-09-2023 09:10-0500 Body height 162.56 cm Jagruti Gonzales RN [facility], [facility].; [facility] 05-09-2023 09:10-0500 Body mass index (BMI) [Ratio] 25.4 kg/m2 Jagruti Gonzales RN [facility], [facility].; [facility] 05-09-2023 09:10-0500 Body surface area Derived from formula 1.72 m2 Jagruti Gonzales RN [facility], [facility].; [facility] 05-09-2023 09:10-0500 Body weight 67.13 kg Jagruti Gonzales RN [facility], [facility].; [facility], [facility]. 05-09-2023 09:10-0500 Diastolic blood pressure 74 mm[Hg] Jagruti Gonzales RN [facility], [facility].; [facility] Comment on above: Patient Position: Sitting; Cuff Location : Left Arm; Cuff Size: Large 05-09-2023 09:10-0500 Heart rate 72 /min Jagruit Gonzales RN [facility], [facility] Comment on above: Pattern: Regular 05-09-2023 09:10-0500 Systolic blood pressure 115 mm[Hg] Jagruti Gonzales RN [facility], [facility].; [facility] Comment on above: Patient Position: Sitting; Cuff Location : Left Arm; Cuff Size: Large 11-15-2022 14:14-0400 Body height 162.56 cm Reina Max RN [facility], [facility].; [facility] 11-15-2022 14:14-0400 Body mass index (BMI) [Ratio] 24.55 kg/m2 Reina Max RN [facility], [facility].; [facility] 11-15-2022 14:14-0400 Body surface area Derived from formula 1.7 m2 Reina Max RN [facility], [facility].; [facility] 11-15-2022 14:14-0400 Body weight 64.86 kg Reina Max RN [facility], [facility].; [facility] 11-15-2022 14:14-0400 Diastolic blood pressure 80 mm[Hg] Reina Max RN [facility], [facility].; [facility] Comment on above: Patient Position: Sitting; Cuff Location : Left Arm; Cuff Size: Large 11-15-2022 14:14-0400 Heart rate 75 /min Reina Max RN [facility], [facility].; [employer] [facility] [employer] [facility] [place] Comment on above: Pattern: Regular 11-15-2022 14:14-0400 Systolic blood pressure 129 mm[Hg] Reina Max RN [facility], [facility].; [employer] [facility] [employer] [facility] [place] Comment on above: Patient Position: Sitting; Cuff Location : Left Arm; Cuff Size: Large 05-29-2022 13:08-0500 Body height 162.56 cm Reina Max RN [facility], [facility].; [facility] 05-29-2022 13:08-0500 Body mass index (BMI) [Ratio] 24.37 kg/m2 Reina Max RN [facility], [facility].; [facility] 05-29-2022 13:08-0500 Body surface area Derived from formula 1.69 m2 Reina Max RN [facility], [facility].; [facility] 05-29-2022 13:08-0500 Body weight 64.41 kg Reina Max RN [facility], [facility].; [facility] 05-29-2022 13:08-0500 Diastolic blood pressure 83 mm[Hg] Reina Max RN [facility], [facility] [employer] [facility] [employer] [facility] [place] Comment on above: Patient Position: Sitting; Cuff Location : Left Arm; Cuff Size: Large 05-29-2022 13:08-0500 Heart rate 80 /min Reina Max RN [facility], [facility].; [facility], [facility]. Comment on above: Pattern: Regular 05-29-2022 13:08-0500 Systolic blood pressure 124 mm[Hg] Reina Max RN [facility], [facility]. Comment on above: Patient Position: Sitting; Cuff Location : Left Arm; Cuff Size: Large 03-19-2022 14:25-0500 Body height 162.56 cm [facility].; [facility], [facility]. 03-19-2022 14:25-0500 Body mass index (BMI) [Ratio] 23.17 kg/m2 [facility].; [facility], [facility]. 03-19-2022 14:25-0500 Body surface area Derived from formula 1.66 m2 [facility].; [facility], [facility]. 03-19-2022 14:25-0500 Body temperature 98.3 [degF] [facility].; [facility], [employer]. Comment on above: Method: Oral 03-19-2022 14:25-0500 Body weight 61.24 kg [facility].; [facility], [facility] 03-19-2022 14:25-0500 Diastolic blood pressure 68 mm[Hg] [facility].; [facility]. Comment on above: Patient Position: Sitting; Cuff Location : Left Arm; Cuff Size: Standard 03-19-2022 14:25-0500 Heart rate 84 /min [facility].; [facility], [employer]. Comment on above: Pattern: Regular 03-19-2022 14:25-0500 Inhaled oxygen concentration 21 % [facility].; [facility], [employer]. Comment on above: Room air 03-19-2022 14:25-0500 SaO2% (BldA) [Mass fraction] 98 % Letitia Perez [facility].; L[facility] Pending sale to [facility]. 03-19-2022 14:25-0500 Systolic blood pressure 106 mm[Hg] Letitia Perez [facility], [facility].; L[facility] [employer] [facility] [place], [employer]. Comment on above: Patient Position: Sitting; Cuff Location : Left Arm; Cuff Size: Standard 11-14-2021 10:25-0400 Body height 162.56 cm CASSIE RYAN RN [facility] [employer] [facility] [place], [employer].; [facility] [employer] [facility]. 11-14-2021 10:25-0400 Body mass index (BMI) [Ratio] 24.2 kg/m2 CASSIE RYAN RN [facility], [employer].; [facility] [employer] [facility] [employer]. 11-14-2021 10:25-0400 Body surface area Derived from formula 1.69 m2 CASSIE RYAN RN [facility] [employer] [facility] [place], [employer].; [facility] [employer] [facility] [place], [employer]. 11-14-2021 10:25-0400 Body weight 63.96 kg CASSIE RYAN RN [facility] [employer] [facility] [place], [employer].; [facility] [employer] [facility] [place], [facility] 11-14-2021 10:25-0400 Diastolic blood pressure 78 mm[Hg] CASSIE RYAN RN [facility] [employer] [facility] [employer].; [facility] [employer] [facility]. Comment on above: Patient Position: Sitting; Cuff Location : Left Arm; Cuff Size: Standard 11-14-2021 10:25-0400 Heart rate 75 /min CASSIE RYAN RN [facility] [employer] [facility] [place], [facility].; [facility] [employer] [facility] [employer]. Comment on above: Pattern: Regular 11-14-2021 10:25-0400 Systolic blood pressure 117 mm[Hg] CASSIE RYAN RN [facility] [employer] [facility] [place], [facility].; [facility] [employer] [facility] [employer]. Comment on above: Patient Position: Sitting; Cuff Location : Left Arm; Cuff Size: Standard Encounters Encounter Date Encounter Type Care Provider Facility Start: 11-30-[address] Boaz Baker MD -[facility] Work Phone: Start: 11-30-2024 End: 11-30-[address] Orlando Snow MD Work Phone: -[facility] Start: 11-30-2024 End: 11-30-[address] Boaz Baker MD -[facility] Work Phone: Start: 07-09-2024 End: 07-09-2024 Medication Refill/Order ORLANDO SNOW MD [facility]: [facility] Start: 05-30-2024 End: 05-30-2024 Patient encounter procedure ORLANDO SNOW MD Work [facility]: [facility] Start: 05-21-2024 End: 05-21-2024 ambulatory ORLANDO SNOW [facility] Start: 05-12-2024 End: 05-12-2024 Office outpatient visit 10 minutes ORLANDO SNOW MD Work [facility]: [facility] Start: 05-05-2024 End: 05-05-2024 ambulatory [facility] Start: 04-20-2024 ambulatory [facility] Start: 11-30-2023 End: 11-30-2023 [facility] Start: 11-14-2023 End: 11-14-2023 Office outpatient visit 10 minutes ORLANDO SNOW MD Work Phone: [facility] Start: 10-11-2023 End: 10-11-2023 ambulatory BELINDA [facility] Start: 09-06-2023 End: 09-06-2023 ambulatory [facility] Start: 08-30-2023 End: 08-30-2023 Emergency department patient visit LUCILA JULIEN [facility] Start: 08-30-2023 End: 08-30-2023 Emergency department [facility] Start: 05-09-2023 End: 05-09-2023 Office outpatient visit 10 minutes ORLANDO SNOW MD Work Phone: [facility] [employer] Start: 11-26-2022 End: 11-27-[address] ORLANDO SNOW MD Facility:A Start: 11-15-2022 End: 11-15-2022 Transitional care manage srvc 7 day discharge ORLANDO SNOW MD Work Phone: [facility] [employer] Start: 11-09-2022 End: 11-10-2022 Evaluation and management of inpatient DR ORLANDO SNOW MD Facility:A Start: 11-09-2022 End: 11-10-[address] ORLANDO SNOW MD Facility:A Start: 11-07-2022 End: 11-07-[address] [facility] Work Phone: Start: 11-07-2022 End: 11-07-2022 Patient encounter procedure [facility] [place] [employer] Start: 05-31-2022 End: 05-31-2022 Results Review ORLANDO SNOW MD Work Phone: [facility] [employer] Start: 05-29-2022 End: 05-29-2022 Office outpatient visit 10 minutes ORLANDO SNOW MD Work Phone: [facility] [employer] Start: 03-19-2022 End: 03-19-2022 Office outpatient visit 10 minutes ORLANDO SNOW MD Work Phone: [facility] [employer] Start: 12-15-2021 End: 12-15-2021 Medication Refill/Order ORLANDO SNOW MD Work Phone: [facility] [employer] Start: 11-14-2021 End: 11-14-2021 Transitional care manage srvc 7 day discharge ORLANDO SNOW MD Work Phone: [facility] [employer] Procedures Date Procedure Procedure Detail Performing Clinician Start: 11-14-2023 End: 11-14-2023 Dischrg meds reconciled w/current med list ORLANDO SNOW MD Work Phone: Start: 08-31-2023 Urinalysis LUCILA GUAN Comment on above: Result Comment: URIN ALYSIS Performed By: #### [id number] #### [facility],[address] [place] [address] Start: 11-15-2022 End: 11-15-2022 Dischrg meds reconciled w/current med list ORLANDO SNOW MD Work Phone: Start: 10-20-2022 End: 10-20-2022 Total hysterectomy Jagruti Gonzales RN Start: 05-29-2022 End: 05-29-2022 Dischrg meds reconciled w/current med list ORLANDO SNOW MD Work Phone: Start: 11-14-2021 End: 11-14-2021 Dischrg meds reconciled w/current med list ORLANDO SNOW MD Work Phone: Plan of Treatment Date Care Activity Detail Author Start: 05-21-2024 [facility] visit, estab pt Medical; ESTABLISHED PATIENT ROUTINE VISIT - [employer] Start: 21-May-2024 11:00-05:00 MD ORLANDO SNOW Appointment Request [employer] Start: 05-12-2024 Mri any jt lower ext rem w/o contrast matrl MRI KNEE W/O CONTRAST ([id number]) Start: 12-May-2024 Intent Comments: right [facility] [employer]; [employer] Comment on above: right Start: 11-07-2023 [facility] Wo ronal [facility] carBAMazepine [Mass/volume] in Serum or Plasma [facility] Complete blood count [facility] Comprehensive metabo lic 2000 panel - Serum or Plasma [facility] Ferritin [Mass/volum e] in Serum or Plasma [facility] Folic acid measureme nt, RBC [facility] Iron [Mass/mass] in Unspecified specimen [facility] Magnesium measurement oste r [facility] MR Brain WO and W contrast IV [facility] Phenytoin [Mass/volu me] in Serum or Plasma [facility] Thiamine measurement [facility] Thyroid stimulating hormone measurement [facility] Vitamin B12 measurement os ter [facility] Vitamin B6 measurement [facility] Vitamin D, 1,25-dihy droxy measurement [facility] Immunizations Immunization Date Immunization Notes Care Provider Fa dev influenza virus vaccine, unspecified formulation ORLANDO SNOW MD Work Phone: [facility] [employer]; [facility] Comment on above: Refused. 03/19/2022 influenza virus vaccine, unspecified formulation ORLANDO SNOW MD Work Phone: [facility]; [facility]. Comment on above: Refused. 03/19/2022 Payers Date Payer Category Payer Unknown [id number] 2022 Self-pay [id number] 2022 Unknown [id number] 1975 Unknown [id number] 2.16.8 [id number] 1977 Unknown [id number] 2.16.8 [id number] 1977 Unknown [id number] 2.16.8 [id number] 1977 Unknown [id number] 2.16.8 [id number] 1977 Unknown [id number] 2.16.8 [id number] 1977 Unknown [id number] 2.16.8 [id number] 1977 Unknown [id number] 2.16.8 [id number] 1977 Unknown [id number] 2.16.8 [id number] 1977 Unknown [id number] 2.16.8 40.1.177332.3.579.2. 1977 Unknown [id number] 2.16.8 [id number]. 1977 Unknown [id number] 2.16.8 [id number]. 1977 Unknown [id number] 2.16.8 [id number] Unknown [id number] 2.16.8 [id number] Unknown Social History Date Type Detail Facility [facility] if ever smoked [facility] Work Phone: Start: 1975 Sex Assigned At Female W [facility] Alcohol Use: Alcohol Use: ; N o Alcohol Use. [facility] [employer] [facility], [facility]. Tobacco use: Tobacco use: ; N ever smoker. [facility] [employer] [facility] [employer], [facility] Never smoked tobacco [facility] [employer] [facility] [employer] [facility], [facility]. Work Phone: Tobacco smoking stat [facility] if ever smoked [facility] Work Phone: Evaluation note Note Date & Type Note Facility Evaluation note No assessment information availa ble [facility] Work Phone: Evaluation note Note Date & Type Note Facility Evaluation note Diagnosis Onset Date Resolution Epilepsy acute November 30 025 8:51am [facility] Work Phone: Reason for referral (narrative) Note Date & Type Note Facility Reason for referral (narrative) No reason for referral information available [facility] Work Phone: Summary Purpose Family History No Family History Records FoundNo Family History Records FoundNo Family History Records FoundNo Family History Records Found Advance Directives No Advanced Directives Records FoundNo Advanced Directives Records FoundNo Advanced Directives Records FoundNo Advanced Directives Records Found Chief Complaint and Reason for Visit Chief Complaint Admit Date SEIZURE DISORDER November 30, 2024 8: 51am EORDERS November 30, 2024 10 :07am Reason for Visit Admit Date Epilepsy November 30, 2024 8: 51am Additional Source Comments Care Teams (unrecognized sec tion and content) Team Status: Inactive Member Role Status Dates BOLIVAR Fong Attending Provider Active Team Status: Active Member Role/Relationship Status Dates Dr. Orlando Snow MD Primary Care Provider Active Team Status: Inactive Member Role/Relationship Status Dates Dr. Boaz Baker MD Attending Provider Active Start: November 30, 2024 End: November 30, 2024 Team Status: Active Member Role/Relationship Status Dates Dr. Orlando Snow MD Primary Care Provider Active Start: November 30, 2024 Dr. Boaz Baker MD Attending Provider Active Start: November 30, 2024 Dr. Boaz Baker MD Referring Provider Active Start: November 30, 2024 Goals (unrecognized section and content) Goals may be documented in a n alternate sectionGoals may be documented in an alternate section INFORMATION SOURCE (unrecogn ized section and content) DATE CREATED AUTHOR 11/10/2022 [facility] DATE CREATED AUTHOR AUTHOR'S ORGANIZ ATION 04/18/2023 [facility] ([place] DATE CREATED AUTHOR AUTHOR'S ORGANIZ ATION 09/01/2023 [facility] DATE CREATED AUTHOR AUTHOR'S ORGANIZ ATION 05/23/2024 [facility] FOR RECORDS PERTAINING TO PATIENTS WHO ARE OR HAVE BEEN ENROLLED IN A CHEMICAL DEPENDENCY/SUBSTANCEABUSE PROGRAM, SOME INFORMATION MAY BE OMITTED. This clinical summary was aggregated from multiple sources. Caution should be exercised in using it in the provision of clinical care. This summary normalizes information from multiple sources, and as a consequence, information in this document may materially change the coding, format and clinical context of patient data. In addition, data may be omitted in some cases. CLINICAL DECISIONS SHOULD BE BASED ON THE PRIMARY CLINICAL RECORDS. [email or web address] provides no warranty or guarantee of the accuracy or completeness of information in this document.
--- OUTSIDE RECORDS SUMMARY | 2024-11-30 10:49 | XMS RPT_ITS | CCD ---
Author Organization [facility] Care Team Providers Care Sewage Disposal Engineer Name Role Phone Yovanny Ct Attending Unavailable EDY PHELPS, DR ORLANDO Roberts Primary Care Unavailejff LARA MD, PATEL Attending Unavailable EDY PHELPS, DR ORLANDO Roberts Primary Care Unavailjeff LARA MD, PATEL Attending Unavailable EDY PHELPS, DR ORLANDO Roberts Primary Care Unavailjeff HAYDEN MD, MIKA Consulting Unavailable MARCO PHELPS, PATEL Attending Unavailable MARCO PHELPS, PATEL Admitting Unavailable ORLANDO SNOW MD Unavailable [phone] ADAAM SNOW MD Unavailable Christian RN, Jagruti Unavailable Unavaila ble Winter KOROMA, Reina Unavailable Unavailable Letitia Perez Unavailable Unavailable JOSSELIN ADAME-KACEY Bryan Unavailable CONNOR KOROMA, CASSIE Unavailable Unavaila ble Unavailable Unavailable LUCILA JULIEN Primary Care Unavailable LUCILA JULIEN Attending Unavailable LUCILA JULIEN Admitting Unavailable [place] SHANNA, Regine Unavailable Unavailable JOSSELIN ADAME-KACEY Bryan Unavailable Unav ailable SNOW, ORLANDO T Primary Care Unavailable SNOW, ORLANDO T Consulting Unavailable SNWO, ORLANDO T Attending Unavailable SNOW, ORLANDO T [...] WILSON CNP Admitting Unavailab le BELINDA WILSON CREATIVE COORDINATOR Attending Unavailab le SNOW, ORLANDO T Consulting [...] Unavailable PROVIDER, UNKNOWN Consulting Unavailable BERTHAANITABELINDA DELCID CREATIVE COORDINATOR Attending Unavailab le STEVE, BELINDA GRIGGS Primary [...] Consulting Unavailable LOLI PHELPS, BIJAN Denise Unavailable [phone] Boaz Baker MD Attending Provider Dr. Orlando Snow MD Primary Care Provider [phone] Dr. Boaz Baker MD Referring Provider [phone] Medications Current Medications Medication Drug Class(es) Dates [...] 09-Jul-2024 Comments: generic take 3 tablets by [facility] twice daily TEGretol 200 MG Oral [...] set up a referral for her in [place]). You should call our office if you have any questions. 05-30-2024 Past or Other Problems Problem Classification Problem Date Documented Date Episodic/Chronic Headache; including migraine (16 sources) Headache; including migraine 03-19-2022 Other aftercare (1 source) Other halfway (current) drug therapy; Translations: [Other halfway (current) drug therapy] Onset: 11-30-2023 Episodic Other [...] Follow-up after Hospitalization: Pt was admitted to [facility] on 11/07/22 and transferred to [facility] on 11/09/22. She had hysterectomy surgery on 11/10/22 and then discharged home. Pt is feeling good, but tired. Pt is following up at [facility] on 11/26/22. No med changes. She is on some pain meds. [place] colorist photography noted labs showed hypothyroidism and recommended following [...] Follow-up after Hospitalization: Pt was admitted to [facility] on 11/07/22 and transferred to [facility] on 11/09/22. She had hysterectomy surgery on 11/10/22 and then discharged home. Pt is feeling good, but tired. Pt is following up at [facility] on 11/26/22. No med changes. She is on some pain meds. [place] colorist photography noted labs showed hypothyroidism and recommended following [...] AYALA RTon 05-21-2024 MR SHARATH AYALA RT [address] [address] Patient: LUIS A BASSETT Phone#: : 1975 Age: 48 Gender: F Pt. Type: Out Account: [id number] Location: 052 Ordering: ORLANDO SNOW Exam Date: 05/21/2024/10:06 Family Phys: Charge Code: [id number] Physician: Latimer Order #: [id number] Dose#: PROCEDURE: MRI KNEE RT WITHOUT CONTRAST [...] muscle, medial head suspicious for popliteal rupture. [place] [address] Patient: LUIS A BASSETT Phone#: : 1975 Age: 48 Gender: F Pt. Type: Out Account: [id number] Location: 052 Ordering: ORLANDO SNOW Exam Date: 05/21/2024/10:06 Family Phys: Charge Code: [id number] Physician: Latimer Order #: [id number] Dose#: Dictated by: Sameera Phillips MD on 05/22/2024 at 16:49 Approved by: Sameera Phillips MD on 05/22/2024 at 16:59 Normal [facility] Laboratory - Drug toxicology on 05-05-2024 carBAMazepine [Mass/Vol] 6.5 ug/ml Normal 4.0 - 12.0 ug/ml [facility], [facility] Work Phone: TEGRETOL (CARBAMAZEPINE); TO [employer] 05-05-2024 TEGRETOL 6.5 ug/ml Normal 4.0 - 12.0 [facility] Comment on above: Performed By: #### 2 58354 #### [facility],[address] [place] [address] Laboratory - Drug toxicology on 11-30-2023 carBAMazepine [Mass/Vol] 3.9 ug/ml Abnormal 4.0 - 12.0 ug/ml [facility], [facility].; [facility] Work Phone: TEGRETOL (CARBAMAZEPINE); TO [place] 11-30-2023 TEGRETOL 3.9 ug/ml Low 4.0 - 12.0 [facility] Comment on above: Performed By: #### 2 23629 #### [facility],[address] [place] [address] CBC + DIFFon 10-11-2023 ATY LYMP 0 % Normal [facility], [facility].; [facility] Work Phone: Comment on above: Performed By: #### 2 87311 #### [facility],[address] [place], [place] [id number] BANDS 0 % Normal 0 - 5 % [facility] Work Phone: Comment on above: Performed By: #### 2 35173 #### [facility],[address] [place], [place] [id number] Baso # 0.01 x10EE3/UL Normal 0.00 - 0.10 [facility] Comment on above: Performed By: #### 2 68263 #### [facility],[address] [place], [place] [id number] Basophils/100 WBC (Bld) 0.3 % Normal 0.0 - 2.0 % [facility] Work Phone: Comment on above: Performed By: #### 2 24763 #### [facility],[address] [place], [place] [id number] Basophils/100 WBC (Bld) 0.0 % Normal 0.0 - 2.0 % [facility] Work Phone: Comment on above: Performed By: #### 2 48405 #### [facility],[address] [place] [address] CBC + DIFF Normal [facility] Comment on above: Result Comment: CORRECTED REPORT CBC-COMPLETE BLOOD COUNT Performed By: #### 2 37699 #### [facility],[address] [place] [address]8810 CELL COUNT 100 Normal [facility] Work Phone: Comment on above: Performed By: #### 2 94163 #### [facility],[address] [place] [address] EO 0.0 % Normal 0.0 - 4.0 % [facility] Work Phone: Comment on above: Performed By: #### 2 05143 #### [facility],[address] [place] [address] 24093 EO # 0.07 x10EE3/UL Normal 0.00 - 0.50 [facility] Comment on above: Performed By: #### 2 71008 #### [facility],[address] [place], [place] [id number] Eosinophils/100 WBC (Bld) 1.6 % Normal 0.0 - 7.0 % [facility], [facility].; [facility] Work Phone: Comment on above: Performed By: #### 2 89329 #### [facility],[address] [place] [address] ERROR DUE TO MANUAL DIFF Normal [facility] Work Phone: Comment on above: Performed By: #### 2 77431 #### [place] [id number] Erythrocyte distribution width (RBC) [Ratio] 16.6 % Abnormal 12.0 - 15.6 % [facility] Work Phone: Comment on above: Performed By: #### 2 60605 #### [place] [id number] Hematocrit (Bld) [Volume fraction] 34.4 % Normal 34.0 - 46.0 % [facility] [employer] [facility] Work Phone: Comment on above: Performed By: #### 2 50557 #### [place] [id number] Hemoglobin (Bld) [Mass/Vol] 10.7 g/dL Abnormal 12.0 - 16.0 g/dL [facility] [facility] Work Phone: Comment on above: Performed By: #### 2 37379 #### [facility],[address] [place] [address] Lymph # 1.29 x10EE3/UL Normal 0.80 - 2.80 [facility] Comment on above: Performed By: #### 2 52554 #### [facility],[address] [place] [address] Lymphocytes/100 WBC (Bld) 30.5 % Normal 20.0 - 45.0 % [facility] [employer] [facility] [place] - [facility] [employer] [facility] Work Phone: Comment on above: Performed By: #### 2 29145 #### [facility],[address] [place] [address] Lymphocytes/100 WBC (Bld) 30 % Normal 20 - 40 % [facility] [employer] [facility] [employer] [facility] Work Phone: Comment on above: Performed By: #### 2 09058 #### [facility],[address] [place] [address] MANUAL DIFF SEE BELOW Normal [facility] [employer] [facility] [place] - [facility] [employer] [facility] Work Phone: Comment on above: Performed By: #### 2 37803 #### [facility],[address] [place] [address] MCH (RBC) [Entitic mass] 22 pg Abnormal 27 - [address] [facility] [place] [facility] [employer] [facility] Work Phone: Comment on above: Performed By: #### 2 97635 #### [facility],[address] [place] [address] MCHC 31 X10 3 Low 32 - 36 [facility] Comment on above: Performed By: #### 2 78011 #### [facility],[address] [place] [address] MCV (RBC) [Entitic vol] 70 fL Abnormal 80 - 99 fL [facility] [employer] [facility] [employer] [facility], [employer] Work Phone: Comment on above: Performed By: #### 2 76383 #### [facility],[address] [place] [address] META 0 % Normal 0 - 1 % [facility], [employer] [facility] [employer] [facility] Work Phone: Comment on above: Performed By: #### 2 99217 #### [facility],[address] [place] [address] Metamyelocytes/100 WBC (Bld) 0 % Normal [facility] [employer] [facility] [employer] [facility], [employer] Work Phone: Comment on above: Performed By: #### 2 64785 #### [facility],[address] [place] [address] MICROCYTES 2+ Normal [facility] [employer] ROANN Hypejar [facility] [employer] [facility], [employer] Work Phone: Comment on above: Result Comment: ==== FOLLOWING RESULTS REPORTED IN ERROR LYMPH 3 L <-- *Previously reported in error [id number]. . .M MONOS 0 <-- *Previously reported in error [id number]. . .M Performed By: #### 2 14664 #### [facility],[address] [place] [address] [place] # 0.24 x10EE3/UL Normal 0.20 - 1.00 [facility] Comment on above: Performed By: #### 2 39523 #### [facility],[address] [place] [address] MONOS 3 % Normal 0 - 8 % [facility] Work Phone: Comment on above: Performed By: #### 2 08944 #### [facility],[address] [place] [address] MONOS % 5.6 % Normal 0.0 - 10.0 [facility] Comment on above: Performed By: #### 2 08211 #### [facility],[address] [place] [address] Morphology Blake (Bld) [Interp] SEE BELOW Normal [facility] Work Phone: Comment on above: Performed By: #### 2 66169 #### [facility],[address] [place] [address] Neut # 2.63 x10EE3/UL Normal 1.50 - 7.10 [facility] Comment on above: Performed By: #### 2 81064 #### [facility],[address] [place] [address]387 Neutrophils/100 WBC (Bld) 62.0 % Normal 46.0 - 76.0 % [facility] Work Phone: Comment on above: Performed By: #### 2 77983 #### [facility],[address] [place] [address] NRBC 0 /100 Normal [facility] Work Phone: Comment on above: Performed By: #### 2 46829 #### [facility],[address] [place] [address] PLATELET 238 x10EE3/UL Normal 150 - 450 [facility] Comment on above: Performed By: #### 2 93543 #### [facility],[address] [place] [address] Platelet mean volume (Bld) [Entitic vol] 9.9 fL Normal 6.6 - 10.5 fL [facility] [employer] [facility] [employer] Work Phone: Comment on above: Result Comment: AUTO MATED DIFFERENTIAL Performed By: #### 2 64799 #### [facility],[address] [place] [address] PLT EST NORMAL Normal [facility].; [facility] Work Phone: Comment on above: Performed By: #### 2 82796 #### [facility],[address] [place] [address] RBC 4.91 x 10EE6/UL Normal 4.10 - 5.30 [facility] Comment on above: Performed By: #### 2 39554 #### [facility],[address] [place] [address] SEGS 67 % Normal 50 - 70 % [facility] [employer] Work Phone: Comment on above: Performed By: #### 2 23273 #### [facility],[address] [place] [address] WBC 4.3 x 10EE3/UL Low 4.5 - 10.8 [facility] Comment on above: Performed By: #### 2 06662 #### [facility],[address] [place], [place] [id number] OTHER 0 Normal [facility] [employer] Work Phone: Comment on above: Performed By: #### 2 18206 #### [facility],[address] [place] [address] CMP with eGFRon 10-11-2023 AGE 47 years Normal [facility] Comment on above: Performed By: #### 2 72314 #### [facility],[address] [place] [address] Albumin [Mass/Vol] 3.5 g/dL Normal 3.4 - 5.0 g/dL [facility], [facility].; [facility] Work Phone: Comment on above: Performed By: #### 2 58014 #### [facility],[address] [place] [address] Albumin/Globulin [Mass ratio] 0.9 {ratio} Normal 0.9 - 1.6 [facility] Comment on above: Performed By: #### 2 82672 #### [facility],[address] [place] [address] ALK PHOS 105 U/L Normal 46 - 116 U/L [facility], [facility].; [facility] Work Phone: Comment on above: Performed By: #### 2 43054 #### [facility],[address] [place] [address] 73547 ALT [Catalytic activity/Vol] 21 U/L Normal 16 - 63 U/L [facility], [facility].; [facility] Work Phone: Comment on above: Performed By: #### 2 55235 #### [facility],[address] [place] [address] 60420 Anion gap [Moles/Vol] 12 mmol/L Normal 10 - 2 0 mmol/L [facility] Work Phone: Comment on above: Performed By: #### 2 63019 #### [facility],[address] [place], [place] [phone] AST [Catalytic activity/Vol] 13 U/L Normal 13 - 39 U/L [facility] [place] [facility] Work Phone: Comment on above: Performed By: #### 2 55723 #### [facility],[address] [place] [address] 30832 B/C RATIO 38 ratio High 0 - 30 [facility] Comment on above: Performed By: #### 2 61672 #### [facility],[address] [place] [address] 62313 Bilirubin [Mass/Vol] 0.2 mg/dL Normal 0.2 - 1 .0 mg/dL [facility], [facility].; [facility] Work Phone: Comment on above: Performed By: #### 2 36746 #### [facility],[address] [place] [address] 64827 Calcium [Mass/Vol] 8.6 mg/dL Normal 8.5 - 10. 1 mg/dL [facility], [facility].; [facility] Work Phone: Comment on above: Performed By: #### 2 12074 #### [address] [address] Chloride [Moles/Vol] 109 mmol/L Abnormal 98 - 10 7 mmol/L [facility], [facility].; [facility] Work Phone: Comment on above: Performed By: #### 2 03276 #### [facility],[address] [place] [address] 16139 CMP with eGFR Normal [facility] Comment on above: Result Comment: COMP REHENSIVE METABOLIC PANEL Performed By: #### 2 60457 #### [address] [address] CO2 [Moles/Vol] 25.3 mmol/L Normal 21.0 - 32.0 mmol/L [facility], [facility].; [facility] Work Phone: Comment on above: Performed By: #### 2 67972 #### [facility],[address] [place] [address] 76907 Creatinine [Mass/Vol] 0.48 mg/dL Abnormal 0.55 - 1.02 mg/dL [facility] [employer] [employer] Work Phone: Comment on above: Performed By: #### 2 38402 #### [facility],[address] [place], [place] [id number] GFR/1.73 sq M.predicted among non-blacks MDRD (S/P/Bld) [Vol rate/Area] mL/min/{1.73_m2} Normal 60 - 999 [facility] Comment on above: Performed By: #### 2 93330 #### [facility],[address] [place], [place] [phone] Result Comment: ACCO RDING TO THE NATIONAL KIDNEY DISEASE EDUCATION PROGRAM(NKDE), A NORMAL eGFR IS A VALUE GREATER THAN OR EQUAL TO 60 ML/MIN/1.73 SQ METERS. CHRONIC KIDNEY DISEASE: <60mL/MIN/1.73 SQ METERS KIDNEY FAILURE: <15mL/MIN/1.73 SQ METERS THIS TEST SHOULD ONLY BE USED FOR PATIENTS 18 YEARS OF AGE AND OLDER. Globulin (S) [Mass/Vol] 3.8 g/dL Normal 1.5 - 3.8 g/dL [facility] [employer] [employer] Work Phone: Comment on above: Performed By: #### 2 15900 #### [facility],[address] [place] [address]14[address] Glucose [Mass/Vol] 123 mg/dL Abnormal 74 - 106 mg/dL [facility] [employer] [employer] Work Phone: Comment on above: Performed By: #### 2 42306 #### [facility],[address] [place] [address]709 Potassium [Moles/Vol] 3.6 mmol/L Normal 3.5 - 5.1 mmol/L [facility], [facility]. Work Phone: Comment on above: Performed By: #### 2 92138 #### [facility],[address] [place] [address]173 Protein [Mass/Vol] 7.3 g/dL Normal 6.4 - 8.2 g/dL [facility].; [facility] Work Phone: Comment on above: Performed By: #### 2 37997 #### [facility],[address] [place] [address] 59582 Sodium [Moles/Vol] 143 mmol/L Normal 136 - 145 mmol/L [facility].; [facility], [facility]. Work Phone: Comment on above: Performed By: #### 2 87160 #### [facility],[address] [place] [address] 44719 Urea nitrogen [Mass/Vol] 18 mg/dL Normal 7 - 18 mg/dL [facility].; [facility] Work Phone: Comment on above: Performed By: #### 2 63410 #### [address] [address] DILANTIN TOTALon 10-11-2023 DILANTIN 10.4 ug/ml Normal 10.0 - 20.0 [facility] Comment on above: Performed By: #### 2 30187 #### [facility],[address] [place] [address] 01610 Laboratory - Chemistry and C hemistry - challengeon 10-11-2023 Albumin [Mass/Vol] 0.9 g/dL Normal 0.9 - 1.6 [facility], [facility].; [facility], [facility]. Work Phone: GFR/1.73 sq M.predicted among blacks MDRD (S/P/Bld) [Vol rate/Area] mL/min/{1.73_m2} Normal 60 - 999 {ML/MINUTE} [facility]; [facility] Work Phone: GFR/1.73 sq M.predicted MDRD (S/P/Bld) [Vol rate/Area] mL/min/{1.73_m2} Normal 60 - 999 {ML/MINUTE} [facility]. Work Phone: Urea nitrogen/Creatinine [Mass ratio] 38 {ratio} Abnormal 0 - 30 {ratio} [facility] Work Phone: Laboratory - Drug toxicology on 10-11-2023 carBAMazepine [Mass/Vol] 3.0 ug/ml Abnormal 4.0 - 12.0 ug/ml [facility]; [facility]. Work Phone: Phenytoin [Mass/Vol] 10.4 ug/mL Normal 10.0 - 20.0 ug/ml [facility]; [facility]. Work Phone: Laboratory - Hematology and Cell countson 10-11-2023 Basophils (Bld) [#/Vol] 0.01 {x10EE3/UL} Normal 0.00 - 0.10 {x10EE3/UL} [facility]. Work Phone: Eosinophils (Bld) [#/Vol] 0.07 {x10EE3/UL} Normal 0.00 - 0.50 {x10EE3/UL} [facility]; [facility] [employer] Work Phone: Lymphocytes (Bld) [#/Vol] 1.29 {x10EE3/UL} Normal 0.80 - 2.80 {x10EE3/UL} [facility] [employer] Work Phone: MCHC (RBC) [Mass/Vol] 31 {X10_3} Abnormal 32 - 3 6 {X10_3} [facility] [employer] Work Phone: Monocytes (Bld) [#/Vol] 0.24 {x10EE3/UL} Normal 0.20 - 1.00 {x10EE3/UL} [facility] [employer] [employer] Work Phone: Monocytes/100 WBC (Bld) 5.6 % Normal 0.0 - 10.0 % [facility] [employer] [employer] Work Phone: Neutrophils (Bld) [#/Vol] 2.63 {x10EE3/UL} Normal 1.50 - 7.10 {x10EE3/UL} [facility] [employer] [employer] Work Phone: Platelets (Bld) [#/Vol] 238 {x10EE3/UL} Normal 150 - 450 {x10EE3/UL} [facility] [employer] [facility] [employer]. Work Phone: RBC (Bld) [#/Vol] 4.91 {x_10EE6/UL} Normal 4.10 - 5.30 {x_10EE6/UL} [facility] [employer] [employer] Work Phone: WBC (Bld) [#/Vol] 4.3 {x_10EE3/UL} Abnormal 4.5 - 10.8 {x_10EE3/UL} [facility] [employer] [facility] [employer] [employer] Work Phone: No Panel Informationon 10-10 AGE 47 {years} Normal [facility] [employer]. Work Phone: CBC + DIFF Normal [facility] [employer]. Work Phone: CMP with eGFR Normal [facility] [employer]. Work Phone: TEGRETOL (CARBAMAZEPINE); TO [employer] 10-11-2023 TEGRETOL 3.0 ug/ml Low 4.0 - 12.0 [facility] Comment on above: Performed By: #### 2 77116 #### [place] [address] DILANTIN TOTALon 09-06-2023 DILANTIN 10.9 ug/ml Normal 10.0 - 20.0 [facility] Comment on above: Performed By: #### 2 04501 #### [facility],[address] [place] [address] Laboratory - Drug toxicology on 09-06-2023 Phenytoin [Mass/Vol] 10.9 ug/mL Normal 10.0 - 20.0 ug/ml [facility] [employer] [employer] Work Phone: EMERGENCY REPORTon [address] [facility] EMERGENCY ROOM REPORT NAME ACCOUNT SEX AGE ADMIT DISCHARGE PT MED. RECORD# NUMBER DATE DATE TYPE LUIS A BASSETT [id number] F 47 08/30/23 08/30/23 3 [id number] ROOM: ER DATE OF : 1975 DICTATING [...] parents confirm that. The patient does see [facility] for her seizure disorder. PAST MEDICAL [...] here p.o. The patient does follow with [facility]. The family did tell me that sometimes some of the off-brand Dilantin medications do cause the patient's therapeutic levels to drop. They had tried to get the non-generic form of the medication this past time, but it was not available so the family will talk to [facility] and the pharmacy about getting her old form of Dilantin back. Otherwise, I felt that the patient clinically looked very good here at discharge and she could go home for outpatient follow-up with [facility]. The parents at the bedside are comfortable with that. I did, at this point, suggest that they continue her Dilantin and Tegretol as already prescribed, and then we will recheck those levels [facility] in about a week and compare those levels to what we got today and then decide with her neurologist if any medication dosing changes are going to be indicated. The patient was discharged in a clinically stable condition. Follow up with [facility] within 3-5 days. If the patient's symptoms become worse or any other problems develop, return here to the Emergency Department. The patient was discharged in an improved, clinically stable condition. Nurse's notes reviewed. DIAGNOSES: 1. Seiz (more content not included)... Normal [facility] CBC + DIFFon 08-31-2023 ANISO 1+ Normal [facility] Comment on above: Performed By: #### 2 21510 #### [facility],[address] [place] [address] Baso # 0.01 x10EE3/UL Normal 0.00 - 0.10 [facility] Comment on above: Performed By: #### 2 25130 #### [facility],[address] [place] [address] Basophils/100 WBC (Bld) 0.3 % Normal 0.0 - 2.0 [facility] Comment on above: Performed By: #### 2 47755 #### [facility],[address] [place] [address] CBC + DIFF Normal [facility] Comment on above: Result Comment: CBC- COMPLETE BLOOD COUNT Performed By: #### 2 45994 #### [facility],[address] [place] [address] EO # 0.05 x10EE3/UL Normal 0.00 - 0.50 [facility] Comment on above: Performed By: #### 2 31985 #### [facility],[address] [place] [address] Eosinophils/100 WBC (Bld) 0.9 % Normal 0.0 - 7.0 [facility] Comment on above: Performed By: #### 2 98690 #### [facility],[address] [place] [address] Erythrocyte distribution width (RBC) [Ratio] 17.2 % High 12.0 - 15.6 [facility] Comment on above: Performed By: #### 2 78799 #### [facility],[address] [place] [address] Hematocrit (Bld) [Volume fraction] 36.0 % Normal 34.0 - 46.0 [facility] Comment on above: Performed By: #### 2 86454 #### [facility],[address] [place] [address] Hemoglobin (Bld) [Mass/Vol] 11.9 g/dL Low 12.0 - 16.0 [facility] Comment on above: Performed By: #### 2 57120 #### [facility],[address] [place] [address] 98468 Lymph # 1.11 x10EE3/UL Normal 0.80 - 2.80 [facility] Comment on above: Performed By: #### 2 33121 #### [facility],[address] [place] [address] Lymphocytes/100 WBC (Bld) 21.9 % Normal 20.0 - 45.0 [facility] Comment on above: Performed By: #### 2 64876 #### [facility],[address] [place] [address] MANUAL DIFF N/A Normal [facility] Comment on above: Performed By: #### 2 11292 #### [facility],[address] [place] [address] MCH (RBC) [Entitic mass] 23 pg Low 27 - 33 [facility] Comment on above: Performed By: #### 2 28151 #### [facility],[address] [place] [address] MCHC 33 X10 3 Normal 32 - 36 [facility] Comment on above: Performed By: #### 2 41666 #### [facility],[address] [place], [place] [id number] MCV (RBC) [Entitic vol] 69 fL Low 80 - 99 [facility] Comment on above: Performed By: #### 2 30753 #### [facility],[address] [place], [place] [id number] MICROCYTES 2+ Normal [facility] Comment on above: Performed By: #### 2 68390 #### [facility],[address] [place] [address] [place] # 0.32 x10EE3/UL Normal 0.20 - 1.00 [facility] Comment on above: Performed By: #### 2 14656 #### [facility],[address] [place], [place] [id number] MONOS % 6.3 % Normal 0.0 - 10.0 [facility] Comment on above: Performed By: #### 2 02265 #### [facility],[address] [place], [place] [id number] Morphology Blake (Bld) [Interp] SEE BELOW Normal [facility] Comment on above: Performed By: #### 2 77000 #### [facility],[address] [place] [address] Neut # 3.57 x10EE3/UL Normal 1.50 - 7.10 [facility] Comment on above: Performed By: #### 2 17430 #### [facility],[address] [place] [address] Neutrophils/100 WBC (Bld) 70.7 % Normal 46.0 - 76.0 [facility] Comment on above: Performed By: #### 2 23613 #### [facility],[address] [place] [address] PLATELET 247 x10EE3/UL Normal 150 - 450 [facility] Comment on above: Performed By: #### 2 16051 #### [facility],[address] [place] [address] Platelet mean volume (Bld) [Entitic vol] 9.7 fL Normal 6.6 - 10.5 [facility] Comment on above: Result Comment: AUTO MATED DIFFERENTIAL Performed By: #### 2 98204 #### [facility],[address] [place], [place] [id number] PLT EST NORMAL Normal [facility] Comment on above: Performed By: #### 2 42813 #### [place] [address] RBC 5.24 x 10EE6/UL Normal 4.10 - 5.30 [facility] Comment on above: Performed By: #### 2 56163 #### [facility],[address],[place] [address] WBC 5.1 x 10EE3/UL Normal 4.5 - 10.8 [facility] Comment on above: Performed By: #### 2 47759 #### [facility],[address] [place] [address]374 CMP with eGFRon 08-31-2023 AGE 47 years Normal [facility] Comment on above: Performed By: #### 2 77379 #### [facility],[address] [place] [address] 61962 Albumin [Mass/Vol] 3.8 g/dL Normal 3.4 - 5.0 [facility] Comment on above: Performed By: #### 2 58023 #### [facility],[address] [place] [address] 46149 Albumin/Globulin [Mass ratio] 0.9 {ratio} Normal 0.9 - 1.6 [facility] Comment on above: Performed By: #### 2 08354 #### [facility],[address] [place] [address] 33618 ALK PHOS 121 U/L High 46 - 116 [facility] Comment on above: Performed By: #### 2 42094 #### [facility],[address] [place] [address] 54222 ALT [Catalytic activity/Vol] 24 U/L Normal 16 - 63 [facility] Comment on above: Performed By: #### 2 15589 #### [facility],[address] [place] [address] 22962 Anion gap [Moles/Vol] 14 mmol/L Normal 10 - 20 [facility] Comment on above: Performed By: #### 2 83936 #### [facility],[address] [place] [address] 80239 AST [Catalytic activity/Vol] 28 U/L Normal 13 - 39 [facility] Comment on above: Performed By: #### 2 31743 #### [facility],[address] [place], [place] [address] B/C RATIO 20 ratio Normal 0 - 30 [facility] Comment on above: Performed By: #### 2 11130 #### [facility],[address] [place] [address] 06352 Bilirubin [Mass/Vol] 0.2 mg/dL Normal 0.2 - 1.0 [facility] Comment on above: Performed By: #### 2 77092 #### [facility],[address] [place], [place] [phone] Calcium [Mass/Vol] 8.7 mg/dL Normal 8.5 - 10.1 [facility] Comment on above: Performed By: #### 2 31960 #### [facility],[address] [place], [place] [phone] Chloride [Moles/Vol] 101 mmol/L Normal 98 - 107 [facility] Comment on above: Performed By: #### 2 81572 #### [facility],[address] [place], [place] [id number] CMP with eGFR Normal [facility] Comment on above: Result Comment: COMP REHENSIVE METABOLIC PANEL Performed By: #### 2 34480 #### [facility],[address] [place] [address] 38643 CO2 [Moles/Vol] 26.4 mmol/L Normal 21.0 - 32.0 [facility] Comment on above: Performed By: #### 2 52916 #### [facility],[address] [place] [address] 37918 Creatinine [Mass/Vol] 0.49 mg/dL Low 0.55 - 1.02 [facility] Comment on above: Performed By: #### 2 77875 #### [facility],[address] [place], [place] [address] eGFR 137 ML/MINUTE Normal 60 - 999 [facility] Comment on above: Performed By: #### 2 31745 #### [facility],[address] [place] [address] 07001 eGFR(AA) 166 ML/MINUTE Normal 60 - 999 [facility] Comment on above: Result Comment: ACCO RDING TO THE NATIONAL KIDNEY DISEASE EDUCATION PROGRAM(NKDE), A NORMAL eGFR IS A VALUE GREATER THAN OR EQUAL TO 60 ML/MIN/1.73 SQ METERS. CHRONIC KIDNEY DISEASE: <60mL/MIN/1.73 SQ METERS KIDNEY FAILURE: <15mL/MIN/1.73 SQ METERS THIS TEST SHOULD ONLY BE USED FOR PATIENTS 18 YEARS OF AGE AND OLDER. Performed By: #### 2 80106 #### [facility],[address] [place] [address]153 Globulin (S) [Mass/Vol] 4.1 g/dL High 1.5 - 3.8 [facility] Comment on above: Performed By: #### 2 55479 #### [address] [address] Glucose [Mass/Vol] 127 mg/dL High 74 - 106 [facility] Comment on above: Performed By: #### 2 07017 #### [facility],[address] [place] [address] 98247 Potassium [Moles/Vol] 3.7 mmol/L Normal 3.5 - 5.1 [facility] Comment on above: Performed By: #### 2 60101 #### [facility],[address] [place] [address] 12764 Protein [Mass/Vol] 7.9 g/dL Normal 6.4 - 8.2 [facility] Comment on above: Performed By: #### 2 40158 #### [facility],[address] [place] [address] 44055 Sodium [Moles/Vol] 138 mmol/L Normal 136 - 145 [facility] Comment on above: Performed By: #### 2 06347 #### [address] [address] Urea nitrogen [Mass/Vol] 10 mg/dL Normal 7 - 18 [facility] Comment on above: Performed By: #### 2 22253 #### [facility],[address] [place] [address] BRAIN W/O CONTRASTon 05 CT BRAIN W/O CONTRAST [address] [address] Patient: LUIS A BASSETT Phone#: : [phone] Age: 38 Gender: F Pt. Type: ER Account: [id number] Location: Ordering: LUCILA JULIEN Exam Date: 08/30/202316:54 Family Phys: Charge Code: [id number] Physician: Latimer Order #: [id number] Dose#: 52.30 PROCEDURE: CT BRAIN WITHOUT CONTRAST [...] 38 Gender: F Pt. Type: ER Account: [id number] Location: Ordering: LUCILA JULIEN Exam Date: 08/30/2023/16:54 Family Phys: Charge Code: [id number] Physician: Latimer Order #: [id number] Dose#: 52.30 3. Small amount of material in the left middle ear, differentials includes, but is not limited to otitis media versus cholesteatoma. Dictated by: Fariha Leyva MD on 08/30/2023 at 17:12 Approved by: Fariha Leyva MD on 08/30/2023 at 17:27 Normal [facility] DILANTIN TOTALon 08-31-2023 DILANTIN 3.7 ug/ml Low 10.0 - 20.0 [facility] Comment on above: Performed By: #### 2 87753 #### [facility],[address] [place], [place] [phone] TEGRETOL (CARBAMAZEPINE); TO [place] 08-31-2023 TEGRETOL 2.7 ug/ml Low 4.0 - 12.0 [facility] Comment on above: Performed By: #### 2 21263 #### [facility],[address] [place] [address] 80136 URINALYSISon 08-31-2023 Bilirubin Ql (U) Negative Normal NORMAL: NEGATIVE [facility] Comment on above: Performed By: #### 2 74184 #### [facility],[address] [place] [address] 49262 Clarity (U) CLEAR Normal NORMAL: CLEAR [facility] Comment on above: Performed By: #### 2 84946 #### [facility],[address] [place] [address] 43747 Color (U) STRAW Normal NORMAL: YELLOW [facility] Comment on above: Performed By: #### 2 01024 #### [facility],[address] [place] [address] 57795 Glucose Ql (U) NORM Normal NORMAL: NORMAL [facility] Comment on above: Performed By: #### 2 07698 #### [facility],[address] [place] [address] 04645 Hemoglobin Ql (U) Negative Normal NORMAL: NEGATIVE [facility] Comment on above: Performed By: #### 2 89470 #### [facility],[address] [place] [address] 95326 Ketone Negative Normal NORMAL: NEGATIVE [facility] Comment on above: Performed By: #### 2 83627 #### [facility],[address] [place] [address] 85195 Leukocytes Negative Normal NORMAL: NEGATIVE [facility] Comment on above: Performed By: #### 2 24938 #### [facility],[address] [place] [address] 23204 Nitrite Ql (U) Negative Normal NORMAL: NEGATIVE [facility] Comment on above: Performed By: #### 2 62969 #### [facility],[address] [place] [address] 30087 pH (U) 7.0 [pH] Normal NORMAL: 5.0-8.0 [facility] Comment on above: Performed By: #### 2 87801 #### [facility],[address] [place] [address] 78559 Protein Ql (U) Negative Normal NORMAL: NEGATIVE [facility] Comment on above: Performed By: #### 2 85460 #### [facility],[address] [place] [address] 49637 Sp Coplay 1.010 Normal NORMAL: 1.010-1.030 [facility] Comment on above: Performed By: #### 2 69008 #### [facility],[address] [place] [address] 07462 Specimen Type UNSPECIFIED Normal [facility] Comment on above: Performed By: #### 2 17649 #### [facility],[address] [place] [address] Urinalysis dipstick W Reflex Microscopic panel (U) NOT INDICATED Normal [facility] Comment on above: Performed By: #### 2 69740 #### [facility],[address] [place] [address] Urobilinog NORMAL Normal NORMAL: NORMAL [facility] Comment on above: Performed By: #### 2 65375 #### [facility],[address] [place] [address] Laboratory - Drug toxicology on 04-18-2023 Phenytoin [Mass/Vol] 11.1 ug/mL Normal 10.0 - 20.0 ug/ml [facility]; [facility]. Work Phone: Laboratory - Chemistry and C hemistry - challengeon 03-08-2023 Albumin [Mass/Vol] 3.2 g/dL Abnormal 3.4 - 5.0 g/dL [facility]; [facility], [facility]. Work Phone: Albumin [Mass/Vol] 0.8 g/dL Abnormal 0.9 - 1.6 [facility]; [facility], [facility]. Work Phone: ALT [Catalytic activity/Vol] 27 U/L Normal 14 - 59 U/L [facility], [facility]. Work Phone: Anion gap [Moles/Vol] 13 mmol/L Normal 10 - 2 0 mmol/L [facility].; [facility], [facility]. Work Phone: AST [Catalytic activity/Vol] 15 U/L Normal 13 - 39 U/L [facility]; [facility], [facility]. Work Phone: Bilirubin [Mass/Vol] 0.2 mg/dL Normal 0.2 - 1 .0 mg/dL [facility]; [facility] Work Phone: Calcium [Mass/Vol] 8.3 mg/dL Abnormal 8.5 - 10. 1 mg/dL [facility]; [facility] Work Phone: Chloride [Moles/Vol] 106 mmol/L Normal 98 - 10 7 mmol/L [facility]; [facility] Work Phone: CO2 [Moles/Vol] 22.4 mmol/L Normal 21.0 - 32.0 mmol/L [facility]; [facility] Work Phone: Creatinine [Mass/Vol] 0.43 mg/dL Abnormal 0.55 - 1.02 mg/dL [facility]; [facility] Work Phone: GFR/1.73 sq M.predicted among blacks MDRD (S/P/Bld) [Vol rate/Area] mL/min/{1.73_m2} Normal 60 - 999 {ML/MINUTE} [facility]; [facility] Work Phone: GFR/1.73 sq M.predicted MDRD (S/P/Bld) [Vol rate/Area] mL/min/{1.73_m2} Normal 60 - 999 {ML/MINUTE} [facility].; [facility]. Work Phone: Globulin (S) [Mass/Vol] 4.1 g/dL Abnormal 1.5 - 3.8 g/dL [facility]; [facility] Work Phone: Glucose [Mass/Vol] 86 mg/dL Normal 74 - 106 mg/dL [facility]; [facility] Work Phone: Potassium [Moles/Vol] 3.7 mmol/L Normal 3.5 - 5.1 mmol/L [facility]; [facility] Work Phone: Protein [Mass/Vol] 7.3 g/dL Normal 6.4 - 8.2 g/dL [facility]; [facility] Work Phone: Sodium [Moles/Vol] 138 mmol/L Normal 136 - 145 mmol/L [facility]; [facility] Work Phone: Urea nitrogen [Mass/Vol] 16 mg/dL Normal 7 - 18 mg/dL [facility]; [facility] Work Phone: Urea nitrogen/Creatinine [Mass ratio] 37 {ratio} Abnormal 0 - 30 {ratio} [facility]; [facility] Work Phone: Laboratory - Drug toxicology on 03-08-2023 carBAMazepine [Mass/Vol] 4.3 ug/ml Normal 4.0 - 12.0 ug/ml [facility]; [facility] Work Phone: Phenytoin [Mass/Vol] 4.1 ug/mL Abnormal 10.0 - 20.0 ug/ml [facility]; [facility]. Work Phone: Laboratory - Hematology and Cell countson 03-08-2023 Basophils (Bld) [#/Vol] 0.00 {x10EE3/UL} Normal 0.00 - 0.10 {x10EE3/UL} [facility]; [facility], [facility]. Work Phone: Basophils/100 WBC (Bld) 0.6 % Normal 0.0 - 2.0 % [facility]; [facility] Work Phone: Eosinophils (Bld) [#/Vol] 0.10 {x10EE3/UL} Normal 0.00 - 0.50 {x10EE3/UL} [facility]; [facility] Work Phone: Eosinophils/100 WBC (Bld) 1.8 % Normal 0.0 - 7.0 % [facility]; [facility] Work Phone: Erythrocyte distribution width (RBC) [Ratio] 17.3 % Abnormal 12.0 - 15.6 % [facility]; [facility] Work Phone: Hematocrit (Bld) [Volume fraction] 32.9 % Abnormal 34.0 - 46.0 % [facility]; [facility] Work Phone: Hemoglobin (Bld) [Mass/Vol] 10.3 g/dL Abnormal 12.0 - 16.0 g/dL [facility]; [facility] Work Phone: Lymphocytes (Bld) [#/Vol] 1.40 {x10EE3/UL} Normal 0.80 - 2.80 {x10EE3/UL} [facility]; [facility]. Work Phone: Lymphocytes/100 WBC (Bld) 28.5 % Normal 20.0 - 45.0 % [facility]; [facility] Work Phone: MCH (RBC) [Entitic mass] 21 pg Abnormal 27 - 33 pg [facility]; [facility] Work Phone: MCHC (RBC) [Mass/Vol] 31 {X10_3} Abnormal 32 - 3 6 {X10_3} [facility]; [facility] Work Phone: MCV (RBC) [Entitic vol] 66 fL Abnormal 80 - 99 fL [facility]; [facility]. Work Phone: Monocytes (Bld) [#/Vol] 0.20 {x10EE3/UL} Normal 0.20 - 1.00 {x10EE3/UL} [facility].; [facility]. Work Phone: Monocytes/100 WBC (Bld) 4.6 % Normal 0.0 - 10.0 % [facility].; [facility]. Work Phone: Morphology Blake (Bld) [Interp] SEE BELOW Normal [facility]; [facility] Work Phone: Neutrophils (Bld) [#/Vol] 3.20 {x10EE3/UL} Normal 1.50 - 7.10 {x10EE3/UL} [facility].; [facility]. Work Phone: Neutrophils/100 WBC (Bld) 64.5 % Normal 46.0 - 76.0 % [facility].; [facility]. Work Phone: Platelet mean volume (Bld) [Entitic vol] 9.1 fL Normal 6.6 - 10.5 [address] [facility].; [facility]. Work Phone: Platelets (Bld) [#/Vol] 205 {x10EE3/UL} Normal 150 - 450 {x10EE3/UL} [facility] Work Phone: RBC (Bld) [#/Vol] 5.00 {x_10EE6/UL} Normal 4.10 - 5.30 {x_10EE6/UL} [facility]. Work Phone: WBC (Bld) [#/Vol] 5.0 {x_10EE3/UL} Normal 4.5 - 10.8 {x_10EE3/UL} [facility].; [facility], [facility]. Work Phone: No Panel Informationon 03-08 AGE 47 {years} Normal [facility].; [facility]. Work Phone: ALK PHOS 107 U/L Normal 46 - 116 U/L [facility].; [facility]. Work Phone: CBC + DIFF Normal [facility].; [facility]. Work Phone: CMP with eGFR Normal [facility]. Work Phone: MANUAL DIFF N/A Normal [facility]. Work Phone: MICROCYTES 1+ Normal [facility], [facility]. Work Phone: PLT EST NORMAL [facility].; [facility], [facility]. Work Phone: Final Surgical Pathology Rep [facility] 11-13-2022 Final Surgical Pathology Report . Pathology Reports Accession: Collected Date/Time: Received Date/Time: Pathologist: [id number] 11/10/2022 10:10 EDT 11/12/2022 08:04 EDT MD [...] cornu), asymmetrical 6.2 cm (anterior to posterior). Prjqra-clh-paao with multiple subserosal nodules Cervix/endocervix-3 cm in diameter and 3 cm in length Endometrium-irregular shaped endometrial cavity measuring 3.5 x 3.5 cm. Within the cavity is a white rolled well-circumscribed nodule. Kptxluonrz-jpr-jglv measuring up to 3.5 cm with multiple [...] Electronically Signed by Pathology Report verified by [facility] ÁNGELA PIERCE MD Sign out Date: 11/13/2022 11:43 Performing Lab: [address] Pathology Dept Pathology Reports Accession: Collected Date/Time: Received Date/Time: Pathologist: [id number] 11/10/2022 10:10 EDT 11/12/2022 08:04 TENAT MD ÁNGELA PIERCE Disclaimer If ancillary studies were utilized, the following Laboratory Developed Test (LDT) disclaimer will apply: Under CLIA requirements, [facility] is qualified to perform high complexity testing. For all ancillary stains, positive and negative controls stain appropriately. Performance characteristics of immunohistochemical and chromogenic in-situ hybridization tests have been determined by [facility]. These tests are used for clinical purposes, They should not be regarded as investigational or for research. Normal [facility] ([place]) .Auto Diffon 11-10-2022 Basophil, Absolute 0.0 10 3/mcL Normal 0.0-0.3 [facility] ([place]) Comment on above: Performed By: #### A DIFF, ANEU, CBC, CMP, MG, PHOS, GFR #### [address] [address] Basophils/100 WBC (Bld) 0.5 % Normal 0.0-2.5 [facility] ([place]) Comment on above: Performed By: #### A DIFF, ANEU, CBC, CMP, MG, PHOS, GFR #### [address] [address] Eosinophil, Absolute 0.0 10 3/mcL Normal 0.0-0.7 [facility] ([place]) Comment on above: Performed By: #### A DIFF, ANEU, CBC, CMP, MG, PHOS, GFR #### [address] [address] Eosinophils/100 WBC (Bld) 0.6 % Normal 0.0-6.0 [facility] ([place] Comment on above: Performed By: #### A DIFF, ANEU, CBC, CMP, MG, PHOS, GFR #### [address] [address] Lymphocyte, Absolute 1.4 10 3/mcL Normal 0.9-4.3 [facility] ([place] Comment on above: Performed By: #### A DIFF, ANEU, CBC, CMP, MG, PHOS, GFR #### [address] [address] Lymphocytes/100 WBC (Bld) 27.3 % Normal 20.0-40.0 [facility] ([place] Comment on above: Performed By: #### A DIFF, ANEU, CBC, CMP, MG, PHOS, GFR #### [address] [address] Monocyte, Absolute 0.3 10 3/mcL Normal 0.1-1.4 [facility] ([place] Comment on above: Performed By: #### A DIFF, ANEU, CBC, CMP, MG, PHOS, GFR #### [address] [address] Monocytes/100 WBC (Bld) 6.2 % Normal 2.0-13.0 [facility] ([place] Comment on above: Performed By: #### A DIFF, ANEU, CBC, CMP, MG, PHOS, GFR #### [address] [address] Neutrophils/100 WBC (Bld) 65.4 % Normal 50.0-75.0 [facility] ([place] Comment on above: Performed By: #### A DIFF, ANEU, CBC, CMP, MG, PHOS, GFR #### [address] [address] .GFRon 11-10-2022 GFR >60 Normal [facility] ([place] Comment on above: Result Comment: GFR Population [...] ANEU, CBC, CMP, MG, PHOS, GFR #### [address] [address] GFR Non- >60 Normal [facility] ([place] Comment on above: Result Comment: GFR Population [...] ANEU, CBC, CMP, MG, PHOS, GFR #### [address] [address] .NEUABSon 11-10-2022 Neutrophil, Absolute 3.3 10 3/mcL Normal 2.3-8.1 [facility] ([place] Comment on above: Performed By: #### A DIFF, ANEU, CBC, CMP, MG, PHOS, GFR #### [address] [address] CBCon 11-10-2022 Erythrocyte distribution width (RBC) [Ratio] 22.2 % High 11.5-15.5 [facility] ([place] Comment on above: Performed By: #### A DIFF, ANEU, CBC, CMP, MG, PHOS, GFR #### [place] [address] Hematocrit (Bld) [Volume fraction] 28.1 % Low 34.0-46.0 [facility] ([place] Comment on above: Performed By: #### A DIFF, ANEU, CBC, CMP, MG, PHOS, GFR #### [address] [address] Hgb 8.9 G/dL Low 12.0-16.0 [facility] ([place] Comment on above: Performed By: #### A DIFF, ANEU, CBC, CMP, MG, PHOS, GFR #### [place] [address] MCH (RBC) [Entitic mass] 22.7 pg Low 27.0-33.0 [facility] ([place] Comment on above: Performed By: #### A DIFF, ANEU, CBC, CMP, MG, PHOS, GFR #### [address] [address] MCHC 31.7 G/dL Low 32.0-36.0 [facility] ([place] Comment on above: Performed By: #### A DIFF, ANEU, CBC, CMP, MG, PHOS, GFR #### [place] [address] MCV (RBC) [Entitic vol] 71.6 fL Low 80.0-99.0 [facility] ([place] Comment on above: Performed By: #### A DIFF, ANEU, CBC, CMP, MG, PHOS, GFR #### [place] [address] Platelet 299 10 3/mcL Normal 150-450 [facility] ([place]) Comment on above: Performed By: #### A DIFF, ANEU, CBC, CMP, MG, PHOS, GFR #### [place] [address] Platelet mean volume (Bld) [Entitic vol] 8.3 fL Normal 6.6-10.5 [facility] ([place] Comment on above: Performed By: #### A DIFF, ANEU, CBC, CMP, MG, PHOS, GFR #### [place] [address] RBC 3.93 10 6/mcL Low 4.10-5.30 [facility] ([place] Comment on above: Performed By: #### A DIFF, ANEU, CBC, CMP, MG, PHOS, GFR #### [place] [address] WBC 5.1 10 3/mcL Normal 4.5-10.8 [facility] ([place] Comment on above: Performed By: #### A DIFF, ANEU, CBC, CMP, MG, PHOS, GFR #### [place] [address] CMPon 11-10-2022 Albumin Level 3.0 G/dL Low 3.2-4.8 [facility] ([place] Comment on above: Performed By: #### A DIFF, ANEU, CBC, CMP, MG, PHOS, GFR #### [facility] [address] [place], [place] [address] Albumin/Globulin [Mass ratio] 1.0 {ratio} Normal 0.9-1.6 [facility] ([place] Comment on above: Performed By: #### A DIFF, ANEU, CBC, CMP, MG, PHOS, GFR #### [address] [address] ALP [Catalytic activity/Vol] 80 U/L Normal 38-126 [facility] ([place] Comment on above: Performed By: #### A DIFF, ANEU, CBC, CMP, MG, PHOS, GFR #### [place] [id number] ALT [Catalytic activity/Vol] 15 U/L Normal 10-49 [facility] ([place] Comment on above: Performed By: #### A DIFF, ANEU, CBC, CMP, MG, PHOS, GFR #### [place] [id number] AST [Catalytic activity/Vol] 16 U/L Normal 8-34 [facility] ([place] Comment on above: Performed By: #### A DIFF, ANEU, CBC, CMP, MG, PHOS, GFR #### [place] [id number] Bili Total 0.40 mg/dL Normal 0.20-1.20 [facility] ([place] Comment on above: Result Comment: Use of this assay is not recommended for patients undergoing treatment with eltrombopag due to the potential for falsely elevated results. Performed By: #### A DIFF, ANEU, CBC, CMP, MG, PHOS, GFR #### [place] [id number] BUN/Creatinine Ratio 18.2 ratio Normal 10.0-22.0 [facility] ([place] Comment on above: Performed By: #### A DIFF, ANEU, CBC, CMP, MG, PHOS, GFR #### [place] [id number] Calcium [Mass/Vol] 8.2 mg/dL Low 8.7-10.4 [facility] [place] Comment on above: Performed By: #### A DIFF, ANEU, CBC, CMP, MG, PHOS, GFR #### [address] [address] Chloride [Moles/Vol] 114 mmol/L High 98-110 [facility] ([place] Comment on above: Performed By: #### A DIFF, ANEU, CBC, CMP, MG, PHOS, GFR #### [address] [address] CO2 [Moles/Vol] 21 mmol/L Low 22-32 [facility] ([place] Comment on above: Performed By: #### A DIFF, ANEU, CBC, CMP, MG, PHOS, GFR #### [address] [address] Creatinine [Mass/Vol] 0.44 mg/dL Low 0.50-1.20 [facility] ([place]) Comment on above: Performed By: #### A DIFF, ANEU, CBC, CMP, MG, PHOS, GFR #### [place] [id number] Electrolyte Balance 5.0 mEq/L Normal 4.0-15.0 [facility] ([place]) Comment on above: Performed By: #### A DIFF, ANEU, CBC, CMP, MG, PHOS, GFR #### [address] [address] Globulin 2.9 G/dL Normal 1.5-3.8 [facility] ([place] Comment on above: Performed By: #### A DIFF, ANEU, CBC, CMP, MG, PHOS, GFR #### [address] [address] Glucose [Mass/Vol] 94 mg/dL Normal 70-110 [facility] [place] Comment [place]: Performed By: #### A DIFF, ANEU, CBC, CMP, MG, PHOS, GFR #### [address] [address] Potassium [Moles/Vol] 3.9 mmol/L Normal 3.5-5.0 [facility] ([place]) Comment on above: Performed By: #### A DIFF, ANEU, CBC, CMP, MG, PHOS, GFR #### [address] [address] Sodium [Moles/Vol] 140 mmol/L Normal 136-145 [facility] [place] Comment [place]: Performed By: #### A DIFF, ANEU, CBC, CMP, MG, PHOS, GFR #### [address] [address] Total Protein 5.9 G/dL Normal 5.7-8.2 [facility] ([place]) Comment on above: Result Comment: No te - New Reference Range in effect 19 Performed By: #### A DIFF, ANEU, CBC, CMP, MG, PHOS, GFR #### [address] [address] Urea nitrogen [Mass/Vol] 8.0 mg/dL Normal 8.0-22.0 [facility] ([place] Comment on above: Performed By: #### A DIFF, ANEU, CBC, CMP, MG, PHOS, GFR #### [address] [address] MGon 11-10-2022 Magnesium [Mass/Vol] 2.0 mg/dL Normal 1.6-2.4 [facility] ([place] Comment on above: Performed By: #### A DIFF, ANEU, CBC, CMP, MG, PHOS, GFR #### [address] [address] PHOSon 11-10-2022 Phosphate [Mass/Vol] 3.2 mg/dL Normal 2.4-5.1 [facility] ([place] Comment on above: Result Comment: No te - New Reference Range in effect 19 Performed By: #### A DIFF, ANEU, CBC, CMP, MG, PHOS, GFR #### [address] [address] RBC (Product)on 11-10-2022 RBC Product Ready RBC Ready for Pickup Normal [facility] ([place]) Comment on above: Order Comment: ON HO LD FOR SURGERY Performed By: #### A DIFF, ANEU, CBC, CMP, MG, PHOS, GFR #### [address] [address] .Auto Diffon 11-09-2022 Basophil, Absolute 0.0 10 3/mcL Normal 0.0-0.3 [facility] ([place] Comment on above: Performed By: #### A DIFF, ANEU, CBC, CMP, MG, PHOS, GFR #### [address] [address] Basophils/100 WBC (Bld) 0.7 % Normal 0.0-2.5 [facility] ([place]) Comment on above: Performed By: #### A DIFF, ANEU, CBC, CMP, MG, PHOS, GFR #### [address] [address] Eosinophil, Absolute 0.0 10 3/mcL Normal 0.0-0.7 [facility] ([place]) Comment on above: Performed By: #### A DIFF, ANEU, CBC, CMP, MG, PHOS, GFR #### [address] [address] Eosinophils/100 WBC (Bld) 0.8 % Normal 0.0-6.0 [facility] ([place]) Comment on above: Performed By: #### A DIFF, ANEU, CBC, CMP, MG, PHOS, GFR #### [address] [address] Lymphocyte, Absolute 1.8 10 3/mcL Normal 0.9-4.3 [facility] ([place] Comment on above: Performed By: #### A DIFF, ANEU, CBC, CMP, MG, PHOS, GFR #### [address] [address] Lymphocytes/100 WBC (Bld) 34.0 % Normal 20.0-40.0 [facility] ([place]) Comment on above: Performed By: #### A DIFF, ANEU, CBC, CMP, MG, PHOS, GFR #### [address] [address] Monocyte, Absolute 0.3 10 3/mcL Normal 0.1-1.4 [facility] ([place]) Comment on above: Performed By: #### A DIFF, ANEU, CBC, CMP, MG, PHOS, GFR #### [address] [address] Monocytes/100 WBC (Bld) 6.0 % Normal 2.0-13.0 [facility] ([place] Comment on above: Performed By: #### A DIFF, ANEU, CBC, CMP, MG, PHOS, GFR #### [address] [address] Neutrophils/100 WBC (Bld) 58.5 % Normal 50.0-75.0 [facility] ([place] Comment on above: Performed By: #### A DIFF, ANEU, CBC, CMP, MG, PHOS, GFR #### [address] [address] .GFRon 11-09-2022 GFR >60 Normal [facility] ([place] Comment on above: Result Comment: GFR Population [...] ANEU, CBC, CMP, MG, PHOS, GFR #### [address] [address] GFR Non- >60 Normal [facility] ([place] Comment on above: Result Comment: GFR Population [...] ANEU, CBC, CMP, MG, PHOS, GFR #### [address] [address] .Morphon 11-09-2022 Acanthocytes 1+ Normal [facility] ([place] Comment on above: Performed By: #### A DIFF, ANEU, CBC, CMP, MG, PHOS, GFR #### [place] [address] Anisocytosis Ql (Bld) 1+ Normal [facility] ([place]) Comment on above: Performed By: #### A DIFF, ANEU, CBC, CMP, MG, PHOS, GFR #### [place] [address] Hypochrom 1+ Normal [facility] ([place] Comment on above: Performed By: #### A DIFF, ANEU, CBC, CMP, MG, PHOS, GFR #### [place] [address] Microcytosis 2+ Normal [facility] ([place] Comment on above: Performed By: #### A DIFF, ANEU, CBC, CMP, MG, PHOS, GFR #### [place] [address] Ovalocytes 1+ Normal [facility] ([place] Comment on above: Performed By: #### A DIFF, ANEU, CBC, CMP, MG, PHOS, GFR #### [place] [address] Platelet Estimate Normal Normal [facility] ([place] Comment on above: Performed By: #### A DIFF, ANEU, CBC, CMP, MG, PHOS, GFR #### [place] [address] Schistocyte 1+ Normal [facility] ([place] Comment on above: Performed By: #### A DIFF, ANEU, CBC, CMP, MG, PHOS, GFR #### [address] [address] .NEUABSon 11-09-2022 Neutrophil, Absolute 3.0 10 3/mcL Normal 2.3-8.1 [facility] ([place] Comment on above: Performed By: #### A DIFF, ANEU, CBC, CMP, MG, PHOS, GFR #### [address] [address] ABO/Rh (Gel)on 11-09-2022 ABO/Rh Interp Negative Invalid Interpretation Code [facility] ([place] Comment on above: Performed By: #### A DIFF, ANEU, CBC, CMP, MG, PHOS, GFR #### [place] [id number] ABS (Gel)on 11-09-2022 ABSC Interp (Gel) Negative Normal [facility] ([place] Comment on above: Performed By: #### A DIFF, ANEU, CBC, CMP, MG, PHOS, GFR #### [place] [id number] CBCon 11-09-2022 Erythrocyte distribution width (RBC) [Ratio] 17.3 % High 11.5-15.5 [facility] ([place] Comment on above: Performed By: #### A DIFF, MG, CMP, MORPH, CBC, GFR, PHOS, ANEU #### [place] [id number] Hematocrit (Bld) [Volume fraction] 22.4 % Low 34.0-46.0 [facility] ([place] Comment on above: Performed By: #### A DIFF, MG, CMP, MORPH, CBC, GFR, PHOS, ANEU #### [place] [id number] Hgb 6.9 G/dL Critically abnormal 12.0-16.0 [facility] ([place] Comment on above: Performed By: #### A DIFF, MG, CMP, MORPH, CBC, GFR, PHOS, ANEU #### [place] [address] MCH (RBC) [Entitic mass] 20.1 pg Low 27.0-33.0 [facility] ([place] Comment on above: Performed By: #### A DIFF, MG, CMP, MORPH, CBC, GFR, PHOS, ANEU #### [place] [address] MCHC 30.6 G/dL Low 32.0-36.0 [facility] ([place] Comment on above: Performed By: #### A DIFF, MG, CMP, MORPH, CBC, GFR, PHOS, ANEU #### [place] [address] MCV (RBC) [Entitic vol] 65.7 fL Low 80.0-99.0 [facility] ([place] Comment on above: Performed By: #### A DIFF, MG, CMP, MORPH, CBC, GFR, PHOS, ANEU #### [place] [address] Platelet 323 10 3/mcL Normal 150-450 [facility] ([place] Comment on above: Performed By: #### A DIFF, MG, CMP, MORPH, CBC, GFR, PHOS, ANEU #### [place] [address] Platelet mean volume (Bld) [Entitic vol] 8.0 fL Normal 6.6-10.5 [facility] ([place] Comment on above: Performed By: #### A DIFF, MG, CMP, MORPH, CBC, GFR, PHOS, ANEU #### [place] [address] RBC 3.41 10 6/mcL Low 4.10-5.30 [facility] ([place] Comment on above: Performed By: #### A DIFF, MG, CMP, MORPH, CBC, GFR, PHOS, ANEU #### [place] [address] WBC 5.2 10 3/mcL Normal 4.5-10.8 [facility] ([place] Comment on above: Performed By: #### A DIFF, MG, CMP, MORPH, CBC, GFR, PHOS, ANEU #### [place] [address] CMPon 11-09-2022 Albumin Level 3.4 G/dL Normal 3.2-4.8 [facility] ([place] Comment on above: Performed By: #### A DIFF, ANEU, CBC, CMP, MG, PHOS, GFR #### [address] [address] Albumin/Globulin [Mass ratio] 1.2 {ratio} Normal 0.9-1.6 [facility] ([place] Comment on above: Performed By: #### A DIFF, ANEU, CBC, CMP, MG, PHOS, GFR #### [place] [id number] ALP [Catalytic activity/Vol] 86 U/L Normal 38-126 [facility] ([place] Comment on above: Performed By: #### A DIFF, ANEU, CBC, CMP, MG, PHOS, GFR #### [place] [id number] ALT [Catalytic activity/Vol] 14 U/L Normal 10-49 [facility] ([place] Comment on above: Performed By: #### A DIFF, ANEU, CBC, CMP, MG, PHOS, GFR #### [place] [id number] AST [Catalytic activity/Vol] 15 U/L Normal 8-34 [facility] ([place] Comment on above: Performed By: #### A DIFF, ANEU, CBC, CMP, MG, PHOS, GFR #### [place] [id number] Bili Total <0.20 Normal 0.20-1.20 [facility] ([place] Comment on above: Result Comment: Use of this assay is not recommended for patients undergoing treatment with eltrombopag due to the potential for falsely elevated results. Performed By: #### A DIFF, ANEU, CBC, CMP, MG, PHOS, GFR #### [place] [id number] BUN/Creatinine Ratio 25.0 ratio High 10.0-22.0 [facility] ([place] Comment on above: Performed By: #### A DIFF, ANEU, CBC, CMP, MG, PHOS, GFR #### [address] [address] Calcium [Mass/Vol] 8.3 mg/dL Low 8.7-10.4 [facility] [place] Comment on above: Performed By: #### A DIFF, ANEU, CBC, CMP, MG, PHOS, GFR #### [address] [address] Chloride [Moles/Vol] 110 mmol/L Normal 98-110 [facility] ([place]) Comment on above: Performed By: #### A DIFF, ANEU, CBC, CMP, MG, PHOS, GFR #### [address] [address] CO2 [Moles/Vol] 22 mmol/L Normal 22-32 [facility] ([place] Comment on above: Performed By: #### A DIFF, ANEU, CBC, CMP, MG, PHOS, GFR #### [address] [address] Creatinine [Mass/Vol] 0.44 mg/dL Low 0.50-1.20 [facility] ([place]) Comment on above: Performed By: #### A DIFF, ANEU, CBC, CMP, MG, PHOS, GFR #### [place] [id number] Electrolyte Balance 9.0 mEq/L Normal 4.0-15.0 [facility] ([place]) Comment on above: Performed By: #### A DIFF, ANEU, CBC, CMP, MG, PHOS, GFR #### [address] [address] Globulin 2.9 G/dL Normal 1.5-3.8 [facility] ([place] Comment on above: Performed By: #### A DIFF, ANEU, CBC, CMP, MG, PHOS, GFR #### [place] [id number] Glucose [Mass/Vol] 141 mg/dL High 70-110 [facility] [place] Comment on above: Performed By: #### A DIFF, ANEU, CBC, CMP, MG, PHOS, GFR #### [address] [address] Potassium [Moles/Vol] 3.7 mmol/L Normal 3.5-5.0 [facility] ([place]) Comment on above: Performed By: #### A DIFF, ANEU, CBC, CMP, MG, PHOS, GFR #### [place] [address] Sodium [Moles/Vol] 141 mmol/L Normal 136-145 [facility] [place] Comment on above: Performed By: #### A DIFF, ANEU, CBC, CMP, MG, PHOS, GFR #### [place] [address] Total Protein 6.3 G/dL Normal 5.7-8.2 [facility] ([place]) Comment on above: Result Comment: No te - New Reference Range in effect 19 Performed By: #### A DIFF, ANEU, CBC, CMP, MG, PHOS, GFR #### [place] [address] Urea nitrogen [Mass/Vol] 11.0 mg/dL Normal 8.0-22.0 [facility] ([place] Comment on above: Performed By: #### A DIFF, ANEU, CBC, CMP, MG, PHOS, GFR #### [place] [address] MGon 11-09-2022 Magnesium [Mass/Vol] 1.9 mg/dL Normal 1.6-2.4 [facility] ([place] Comment on above: Performed By: #### A DIFF, ANEU, CBC, CMP, MG, PHOS, GFR #### [place] [address] PHOSon 11-09-2022 Phosphate [Mass/Vol] 3.1 mg/dL Normal 2.4-5.1 [facility] ([place] Comment on above: Result Comment: No te - New Reference Range in effect 19 Performed By: #### A DIFF, ANEU, CBC, CMP, MG, PHOS, GFR #### [place] [address] PREGUon 11-09-2022 HCG ( test) Ql (U) Negative Normal [facility] ([place] Comment on above: Performed By: #### P REGU #### [address] [address] test (u) int Not detected Invalid Interpretation Code [facility] ([place]) Comment on above: Performed By: #### P REGU #### [facility] [address] [place] [id number] RBC (Product)on 11-09-2022 RBC Product Ready RBC Ready for Pickup Normal [facility] ([place]) Comment on above: Performed By: #### A DIFF, ANEU, CBC, CMP, MG, PHOS, GFR #### [address] [address] Absolute lymphocyte countOrd ered By: Ct Hairston on 11-07-2022 Lymphocytes Auto (Unsp spec) [#/Vol] 1.60 10*3/uL 0.83-4.51 [facility] Basophil percentageOrdered B y: Ct Hairston on 11-07-2022 Basophils/100 WBC (Bld) 0.6 % 0-1 [facility] Eosinophils/100 WBC (Bld) 0.6 % 0-5 [facility] Neutrophils (Bld) [#/Vol] 2.9 10*3/uL 2.0-7.7 [facility] Neutrophils/100 WBC (Bld) 59.6 % 47-70 [facility] WBC (Bld) [#/Vol] 4.9 10*3/uL 4.4-11.0 [facility] Blood erythrocytes count (nu mber/volume)Ordered By: Ct Hairston on 11-07-2022 RBC (Bld) [#/Vol] 3.45 10*6/uL 4.2-5.4 [facility] Blood hemoglobin measurement (mass/volume)Ordered By: Ct Hairston on 11-07-2022 Hemoglobin (Bld) [Mass/Vol] 6.9 g/dL 12.0-15.0 [facility] Blood lymphocytes/100 leukoc ytesOrdered By: Ct Hiarston on 11-07-2022 Lymphocytes/100 WBC (Bld) 32.5 % 19-41 [facility] Blood monocytes/100 leukocyt esOrdered By: Ct Hairston on 11-07-2022 Monocytes/100 WBC (Bld) 6.3 % 0-10 [facility] Blood platelet mean volumeOr dered By: Ct Hairston on 11-07-2022 Platelet mean volume (Bld) [Entitic vol] 10.1 fL 6.2-12.0 [facility] CBC W/Diff, Automatedon 10-20 Absolute Lymph 1.60 X10 3/uL Normal 0.83-4.51 [facility] Comment on above: Performed By: #### L 100.0100, L700.8000, L501.9520, L506.0400, L3100.5055, L3100.5420, L3300.1750 #### [facility] [address] [place], [address] Absolute Neut 2.9 X10 3/uL Normal 2.0-7.7 [facility] Comment on above: Performed By: #### L 100.0100, L700.8000, L501.9520, L506.0400, L3100.5055, L3100.5420, L3300.1750 #### [facility] [address] [place], [address] Basophils/100 WBC (Bld) 0.6 % Normal 0-1 [facility] Comment on above: Performed By: #### L 100.0100, L700.8000, L501.9520, L506.0400, L3100.5055, L3100.5420, L3300.1750 #### [facility] [address] [place], [address] Eosinophils/100 WBC (Bld) 0.6 % Normal 0-5 [facility] Comment on above: Performed By: #### L 100.0100, L700.8000, L501.9520, L506.0400, L3100.5055, L3100.5420, L3300.1750 #### [facility] [address] [place], [address] Erythrocyte distribution width (RBC) [Ratio] 17.4 % High 11.6-14.6 [facility] Comment on above: Performed By: #### L 100.0100, L700.8000, L501.9520, L506.0400, L3100.5055, L3100.5420, L3300.1750 #### [facility] [address] [place], [address] Hematocrit (Bld) [Volume fraction] 24.4 % Low 37-47 [facility] Comment on above: Performed By: #### L 100.0100, L700.8000, L501.9520, L506.0400, L3100.5055, L3100.5420, L3300.1750 #### [facility] [address] [place], [address] Hemoglobin (Bld) [Mass/Vol] 6.9 g/dL Low 12.0-15.0 [facility] Comment on above: Performed By: #### L 100.0100, L700.8000, L501.9520, L506.0400, L3100.5055, L3100.5420, L3300.1750 #### [facility] [address] [place], [address] IG% 0.400 Normal 0.0-0.9 [facility] Comment on above: Result Comment: IG% - Immature Granulocytes (promyelocytes, myelocytes and metamyelocytes) > 1% indicates that a LEFT SHIFT is Present. Performed By: #### L 100.0100, L700.8000, L501.9520, L506.0400, L3100.5055, L3100.5420, L3300.1750 #### [facility] [address] [place], [address] Lymphocytes/100 WBC (Bld) 32.5 % Normal 19-41 [facility] Comment on above: Performed By: #### L 100.0100, L700.8000, L501.9520, L506.0400, L3100.5055, L3100.5420, L3300.1750 #### [facility] [address] [place], [address] MCH (RBC) [Entitic mass] 20.0 pg Low 27.0-32.0 [facility] Comment on above: Performed By: #### L 100.0100, L700.8000, L501.9520, L506.0400, L3100.5055, L3100.5420, L3300.1750 #### [facility] [address] [place], [address] MCHC (RBC) [Mass/Vol] 28.3 g/dL Low 32-36 [facility] Comment on above: Performed By: #### L 100.0100, L700.8000, L501.9520, L506.0400, L3100.5055, L3100.5420, L3300.1750 #### [facility] [address] [place], [address] MCV (RBC) [Entitic vol] 70.7 fL Low 81-99 [facility] Comment on above: Performed By: #### L 100.0100, L700.8000, L501.9520, L506.0400, L3100.5055, L3100.5420, L3300.1750 #### [facility] [address] [place], [address] Monocytes/100 WBC (Bld) 6.3 % Normal 0-10 [facility] Comment on above: Performed By: #### L 100.0100, L700.8000, L501.9520, L506.0400, L3100.5055, L3100.5420, L3300.1750 #### [facility] [address] [place], [address] Neutrophils/100 WBC (Bld) 59.6 % Normal 47-70 [facility] Comment on above: Performed By: #### L 100.0100, L700.8000, L501.9520, L506.0400, L3100.5055, L3100.5420, L3300.1750 #### [facility] [address] [place], [address] Nucleated RBC (Bld) [#/Vol] 0 10*3/uL Normal 0-5 [facility] Comment on above: Performed By: #### L 100.0100, L700.8000, L501.9520, L506.0400, L3100.5055, L3100.5420, L3300.1750 #### [facility] [address] [place], [address] Platelet mean volume (Bld) [Entitic vol] 10.1 fL Normal 6.2-12.0 [facility] Comment on above: Performed By: #### L 100.0100, L700.8000, L501.9520, L506.0400, L3100.5055, L3100.5420, L3300.1750 #### [facility] [address] [place], [address] Platelets (Bld) [#/Vol] 369 10*3/uL Normal 150-450 [facility] Comment on above: Performed By: #### L 100.0100, L700.8000, L501.9520, L506.0400, L3100.5055, L3100.5420, L3300.1750 #### [facility] [address] [place], [address] RBC (Bld) [#/Vol] 3.45 10*6/uL Low 4.2-5.4 [facility] Comment on above: Performed By: #### L 100.0100, L700.8000, L501.9520, L506.0400, L3100.5055, L3100.5420, L3300.1750 #### [facility] [address] [place], [place], [id number] RDW SD 43.9 fl Normal 35.1-43.9 [facility] Comment on above: Performed By: #### L 100.0100, L700.8000, L501.9520, L506.0400, L3100.5055, L3100.5420, L3300.1750 #### [facility] [address] [place], [address] WBC (Bld) [#/Vol] 4.9 10*3/uL Normal 4.4-11.0 [facility] Comment on above: Performed By: #### L 100.0100, L700.8000, L501.9520, L506.0400, L3100.5055, L3100.5420, L3300.1750 #### [facility] [address] [place], [address] Determination of erythrocyte mean corpuscular volume (MCV)Ordered By: Ct Hairston on 11-07-2022 MCV (RBC) [Entitic vol] 70.7 fL 81-99 [facility] Estradiolon 11-07-2022 ESTRADIOL 53.1 pg/mL Normal [facility] Comment on above: Result Comment: NORM AL [...] L700.8000, L501.9520, L506.0400, L3100.5055, L3100.5420, L3300.1750 #### [facility] [address] [place], [address] FSH and LHon 11-07-2022 FSH 11.4 mIU/mL Normal [facility] Comment on above: Result Comment: NORMAL REFERENCE RANGES FEMALE FOLLICULAR 2.3 - 12.6 mIU/mL MID-CYCLE PEAK 5.2 - 17.5 mIU/mL LUTEAL 1.7 - 12.9 mIU/mL POST-MENOPAUSAL ON MHT 5.9 - 72.8 mIU/mL NOT ON MHT 12.7 - 132.2 mlU/mL MALE 0.7 - 10.8 mIU/mL Performed By: #### L 100.0100, L700.8000, L501.9520, L506.0400, L3100.5055, L3100.5420, L3300.1750 #### [facility] [address] [place], [address] LH 6.9 mIU/mL Normal [facility] Comment on above: Result Comment: NORMAL REFERENCE RANGES FEMALE FOLLICULAR 1.9 - 26.2 mIU/mL MID-CYCLE PEAK 22.8 - 76.1 mIU/mL LUTEAL 0.6 - 16.6 mIU/mL POST-MENOPAUSAL ON MHT 1.1 - 52.4 mIU/mL NOT ON MHT 8.6 - 61.8 mIU/mL MALE 1.2 - 10.6 mIU/mL Performed By: #### L 100.0100, L700.8000, L501.9520, L506.0400, L3100.5055, L3100.5420, L3300.1750 #### [facility] [address] [place], [address] Ferritinon 11-07-2022 Ferritin [Mass/Vol] 11 ng/mL Normal 8-252 [facility] Comment on above: Performed By: #### L 503.6550 #### [facility] [address] [place], [address] Hematocrit Auto (Bld) [Volum e fraction]Ordered By: Ct Hairston on 11-07-2022 Hematocrit (Bld) [Volume fraction] 24.4 % 37-47 [facility] - Chemistry and C hemistry - challengeOrdered By: Ct Hairston on 11-07-2022 Free T4 [Mass/Vol] 0.73 ng/dL 0.76-1.46 [facility] - Hematology and Cell countsOrdered By: Ct Hairston on 11-07-2022 Erythrocyte distribution width (RBC) [Entitic vol] 43.9 fL 35.1-43.9 [facility] Erythrocyte distribution width (RBC) [Ratio] 17.4 % 11.6-14.6 [facility] Immature granulocytes/100 WBC (Bld) 0.400 % 0.0-0.9 [facility] Comment on above: IG% - Immature Granu locytes (promyelocytes, myelocytes and metamyelocytes) > 1% indicates that a LEFT SHIFT is Present. MCH (RBC) [Entitic mass] 20.0 pg 27.0-32.0 [facility] Nucleated RBC/100 WBC (Bld) [Ratio] 0 % 0-5 [facility] MCHC Auto (RBC) [Mass/Vol]Or dered By: Ct Hairston on 11-07-2022 MCHC (RBC) [Mass/Vol] 28.3 g/dL 32-36 [facility] No Panel InformationOrdered By: Ct Hairston on 11-07-2022 Follicle Stimulating Hormone 11.4 mIU/mL [facility] Comment on above: NORMAL REFERENCE RAN [facility] FEMALE FOLLICULAR 2.3 - 12.6 mIU/mL MID-CYCLE PEAK 5.2 - 17.5 mIU/mL LUTEAL 1.7 - 12.9 mIU/mL POST-MENOPAUSAL ON MHT 5.9 - 72.8 mIU/mL NOT ON MHT 12.7 - 132.2 mlU/mL MALE 0.7 - 10.8 mIU/mL Luteinizing Hormone 6.9 mIU/mL [facility] Comment on above: NORMAL REFERENCE RAN [facility] FEMALE FOLLICULAR 1.9 - 26.2 mIU/mL MID-CYCLE PEAK 22.8 - 76.1 mIU/mL LUTEAL 0.6 - 16.6 mIU/mL POST-MENOPAUSAL ON MHT 1.1 - 52.4 mIU/mL NOT ON MHT 8.6 - 61.8 mIU/mL MALE 1.2 - 10.6 mIU/mL Thyroid Stimulating Hormone (TSH) 2.60 uIU/mL 0.358-3.74 [facility] Platelets bldOrdered By: Marina Hairston on 11-07-2022 Platelets (Bld) [#/Vol] 369 10*3/uL 150-450 [facility] Prolactinon 11-07-2022 PROLACTIN 6.6 ng/mL Normal [facility] Comment on above: Result Comment: NORMAL REFERENCE RANGES FEMALE NON- 2.2 - 30.3 ng/mL 8.1 - 347.6 ng/mL POST-MENOPAUSAL 0.7 - 31.5 ng/mL MALE 2.5 - 17.4 ng/mL Performed By: #### L 100.0100, L700.8000, L501.9520, L506.0400, L3100.5055, L3100.5420, L3300.1750 #### [facility] [address] [place], [place], [address] Serum or plasma choriogonado tropin detectionOrdered By: Ct Hairston on 11-07-2022 HCG ( test) Ql < 1 mIU/mL <4 [facility] Comment on above: hCG levels with Gest ational AgeGestational Age hCG mIU/mL (IU/L)0.2 - 1 week 5 - 501-2 weeks 50 - 5002-3 weeks 100 - 48489-4 weeks 500 - 338942-7 weeks 1000 - 087903-1 weeks 40637 - 100,0006-8 weeks 62222 - 200,0002-3 months 29835 - 100,000 Serum or plasma estradiol (E 2) measurement (mass/volume)Ordered By: Ct Hairston on 11-07-2022 E2 [Mass/Vol] 53.1 pg/mL [facility] Comment on above: NORMAL REFERENCE RAN [...] on 11-07-2022 Ferritin [Mass/Vol] 11 ng/mL 8-252 [facility] Serum or plasma prolactin me asurement (mass/volume)Ordered By: Ct Hairston on 11-07-2022 Prolactin [Mass/Vol] 6.6 ng/mL [facility] Comment on above: NORMAL REFERENCE RAN GES FEMALE NON- 2.2 - 30.3 ng/mL 8.1 - 347.6 ng/mL POST-MENOPAUSAL 0.7 - 31.5 ng/mL MALE 2.5 - 17.4 ng/mL T4 Free Directon 11-07-2022 T4 FREE DIRECT 0.73 ng/dL Low 0.76-1.46 [facility] Comment on above: Performed By: #### L 100.0100, L700.8000, L501.9520, L506.0400, L3100.5055, L3100.5420, L3300.1750 #### [facility] [address] [place], [place], [id number] [phone] Thyroid Stim Hormone (TSH)on 11-07-2022 TSH 2.60 uIU/mL Normal 0.358-3.74 [facility] Comment on above: Performed By: #### L 100.0100, L700.8000, L501.9520, L506.0400, L3100.5055, L3100.5420, L3300.1750 #### [facility] [address] [place], [place], [id number] ([phone] hCG Titer Quant., Serumon HCG QUANT. < 1 Normal 1-3 [facility] Comment on above: Result Comment: hCG levels with Gestational Age Gestational Age hCG mIU/mL (IU/L) 0.2 - 1 week 5 - 50 1-2 weeks 50 - 500 2-3 weeks 100 - 5000 3-4 weeks 500 - 34309 4-5 weeks 1000 - 44112 5-6 weeks 67505 - 100,000 6-8 weeks 31410 - 200,000 2-3 months 76662 - 100,000 Performed By: #### L 100.0100, L700.8000, L501.9520, L506.0400, L3100.5055, L3100.5420, L3300.1750 #### [facility] [address] [place], [address] Laboratory - Chemistry and C hemistry - challengeon 09-11-2022 Albumin [Mass/Vol] 3.7 g/dL Normal 3.4 - 5.0 g/dL [facility]; [facility] Work Phone: Albumin [Mass/Vol] 1.1 g/dL Normal 0.9 - 1.6 [facility] Work Phone: ALT [Catalytic activity/Vol] 25 U/L Normal 14 - 59 U/L [facility]; [facility] Work Phone: Anion gap [Moles/Vol] 10 mmol/L Normal 10 - 2 0 mmol/L [facility]; [facility] Work Phone: AST [Catalytic activity/Vol] 20 U/L Normal 13 - 39 U/L [facility]; [facility] Work Phone: Bilirubin [Mass/Vol] 0.1 mg/dL Abnormal 0.2 - 1 .0 mg/dL [facility]; [facility] Work Phone: Calcium [Mass/Vol] 8.6 mg/dL Normal 8.5 - 10. 1 mg/dL [facility]; [facility]. Work Phone: Chloride [Moles/Vol] 102 mmol/L Normal 98 - 10 7 mmol/L [facility]; [facility]. Work Phone: CO2 [Moles/Vol] 27.5 mmol/L Normal 21.0 - 32.0 mmol/L [facility]; [facility]. Work Phone: Creatinine [Mass/Vol] 0.58 mg/dL Normal 0.55 - 1.02 mg/dL [facility]; [facility] Work Phone: GFR/1.73 sq M.predicted among blacks MDRD (S/P/Bld) [Vol rate/Area] mL/min/{1.73_m2} Normal 60 - 999 {ML/MINUTE} [facility]. Work Phone: GFR/1.73 sq M.predicted MDRD (S/P/Bld) [Vol rate/Area] mL/min/{1.73_m2} Normal 60 - 999 {ML/MINUTE} [facility].; [facility], [facility]. Work Phone: Globulin (S) [Mass/Vol] 3.5 g/dL Normal 1.5 - 3.8 g/dL [facility]; [facility]. Work Phone: Glucose [Mass/Vol] 107 mg/dL Abnormal 74 - 106 mg/dL [facility]; [facility], [facility]. Work Phone: Potassium [Moles/Vol] 3.5 mmol/L Normal 3.5 - 5.1 mmol/L [facility]; [facility] Work Phone: Protein [Mass/Vol] 7.2 g/dL Normal 6.4 - 8.2 g/dL [facility]; [facility] Work Phone: Sodium [Moles/Vol] 136 mmol/L Normal 136 - 145 mmol/L [facility]; [facility] Work Phone: Urea nitrogen [Mass/Vol] 14 mg/dL Normal 7 - 18 mg/dL [facility]; [facility]. Work Phone: Urea nitrogen/Creatinine [Mass ratio] 24 {ratio} Normal 0 - 30 {ratio} [facility]; [facility] Work Phone: Laboratory - Drug toxicology on 09-11-2022 Phenytoin [Mass/Vol] 9.3 ug/mL Abnormal 10.0 - 20.0 ug/ml [facility]; [facility]. Work Phone: Laboratory - Hematology and Cell countson 09-11-2022 Basophils (Bld) [#/Vol] 0.00 {x10EE3/UL} Normal 0.00 - 0.10 {x10EE3/UL} [facility]. Work Phone: Basophils/100 WBC (Bld) 0.9 % Normal 0.0 - 2.0 % [facility]; [facility]. Work Phone: Eosinophils (Bld) [#/Vol] 0.10 {x10EE3/UL} Normal 0.00 - 0.50 {x10EE3/UL} [facility]. Work Phone: Eosinophils/100 WBC (Bld) 1.7 % Normal 0.0 - 7.0 % [facility]; [facility] Work Phone: Erythrocyte distribution width (RBC) [Ratio] 17.4 % Abnormal 12.0 - 15.6 % [facility]; [facility] Work Phone: Hematocrit (Bld) [Volume fraction] 29.3 % Abnormal 34.0 - 46.0 % [facility]; [facility] Work Phone: Hemoglobin (Bld) [Mass/Vol] 8.9 g/dL Abnormal 12.0 - 16.0 g/dL [facility]; [facility] Work Phone: Lymphocytes (Bld) [#/Vol] 1.80 {x10EE3/UL} Normal 0.80 - 2.80 {x10EE3/UL} [facility]; [facility] Work Phone: Lymphocytes/100 WBC (Bld) 43.9 % Normal 20.0 - 45.0 % [facility]; [facility] Work Phone: MCH (RBC) [Entitic mass] 20 pg Abnormal 27 - 33 pg [facility]; [facility] Work Phone: MCHC (RBC) [Mass/Vol] 31 {X10_3} Abnormal 32 - 3 6 {X10_3} [facility]; [facility] Work Phone: MCV (RBC) [Entitic vol] 66 fL Abnormal 80 - 99 fL [facility]; [facility] Work Phone: Monocytes (Bld) [#/Vol] 0.30 {x10EE3/UL} Normal 0.20 - 1.00 {x10EE3/UL} [facility]. Work Phone: Monocytes/100 WBC (Bld) 7.3 % Normal 0.0 - 10.0 % [facility]; [facility]. Work Phone: Morphology Blake (Bld) [Interp] N/A Normal [facility]; [facility]. Work Phone: Neutrophils (Bld) [#/Vol] 1.90 {x10EE3/UL} Normal 1.50 - 7.10 {x10EE3/UL} [facility]. Work Phone: Neutrophils/100 WBC (Bld) 46.2 % Normal 46.0 - 76.0 % [facility].; [facility]. Work Phone: Platelet mean volume (Bld) [Entitic vol] 9.6 fL Normal 6.6 - 10.5 fL [facility]; [facility]. Work Phone: Platelets (Bld) [#/Vol] 247 {x10EE3/UL} Normal 150 - 450 {x10EE3/UL} [facility]. Work Phone: RBC (Bld) [#/Vol] 4.47 {x_10EE6/UL} Normal 4.10 - 5.30 {x_10EE6/UL} [facility]. Work Phone: WBC (Bld) [#/Vol] 4.1 {x_10EE3/UL} Abnormal 4.5 - 10.8 {x_10EE3/UL} [facility] Work Phone: No Panel Informationon 09-11 AGE 46 {years} Normal [facility]; [facility] Work Phone: ALK PHOS 103 U/L Normal 46 - 116 U/L [facility]; [facility]. Work Phone: CBC + DIFF Normal [facility]; [facility]. Work Phone: CMP with eGFR Normal [facility]; [facility]. Work Phone: MANUAL DIFF N/A Normal [facility]; [facility] Work Phone: Laboratory - Chemistry and C hemistry - challengeon 08-23-2022 Albumin [Mass/Vol] 3.5 g/dL Normal 3.4 - 5.0 g/dL [facility]; [facility]. Work Phone: Albumin [Mass/Vol] 1.0 g/dL Normal 0.9 - 1.6 [facility]; [facility] Work Phone: ALT [Catalytic activity/Vol] 17 U/L Normal 14 - 59 U/L [facility]; [facility]. Work Phone: Anion gap [Moles/Vol] 15 mmol/L Normal 10 - 2 0 mmol/L [facility]; [facility] Work Phone: AST [Catalytic activity/Vol] 22 U/L Normal 13 - 39 U/L [facility]; [facility] Work Phone: Bilirubin [Mass/Vol] 0.1 mg/dL Abnormal 0.2 - 1 .0 mg/dL [facility]; [facility] Work Phone: Calcium [Mass/Vol] 8.1 mg/dL Abnormal 8.5 - 10. 1 mg/dL [facility]; [facility] Work Phone: Chloride [Moles/Vol] 106 mmol/L Normal 98 - 10 7 mmol/L [facility]; [facility] Work Phone: CO2 [Moles/Vol] 25.0 mmol/L Normal 21.0 - 32.0 mmol/L [facility]; [facility] Work Phone: Creatinine [Mass/Vol] 0.49 mg/dL Abnormal 0.55 - 1.02 mg/dL [facility]; [facility] Work Phone: GFR/1.73 sq M.predicted among blacks MDRD (S/P/Bld) [Vol rate/Area] mL/min/{1.73_m2} Normal 60 - 999 {ML/MINUTE} [facility]; [facility]. Work Phone: GFR/1.73 sq M.predicted MDRD (S/P/Bld) [Vol rate/Area] mL/min/{1.73_m2} Normal 60 - 999 {ML/MINUTE} [facility].; [facility]. Work Phone: Globulin (S) [Mass/Vol] 3.5 g/dL Normal 1.5 - 3.8 g/dL [facility]; [facility]. Work Phone: Glucose [Mass/Vol] 86 mg/dL Normal 74 - 106 mg/dL [facility]; [facility] Work Phone: Potassium [Moles/Vol] 3.8 mmol/L Normal 3.5 - 5.1 mmol/L [facility]; [facility] Work Phone: Protein [Mass/Vol] 7.0 g/dL Normal 6.4 - 8.2 g/dL [facility]; [facility] Work Phone: Sodium [Moles/Vol] 142 mmol/L Normal 136 - 145 mmol/L [facility]; [facility] Work Phone: Urea nitrogen [Mass/Vol] 10 mg/dL Normal 7 - 18 mg/dL [facility]; [facility] Work Phone: Urea nitrogen/Creatinine [Mass ratio] 20 {ratio} Normal 0 - 30 {ratio} [facility]; [facility] Work Phone: Laboratory - Drug toxicology on 08-23-2022 Phenytoin [Mass/Vol] 28.3 ug/mL Abnormal 10.0 - 20.0 ug/ml [facility]; [facility] Work Phone: Laboratory - Hematology and Cell countson 08-23-2022 Basophils (Bld) [#/Vol] 0.00 {x10EE3/UL} Normal 0.00 - 0.10 {x10EE3/UL} [facility]; [facility]. Work Phone: Basophils/100 WBC (Bld) 0.7 % Normal 0.0 - 2.0 % [facility]; [facility] Work Phone: Eosinophils (Bld) [#/Vol] 0.00 {x10EE3/UL} Normal 0.00 - 0.50 {x10EE3/UL} [facility]; [facility]. Work Phone: Eosinophils/100 WBC (Bld) 0.8 % Normal 0.0 - 7.0 % [facility]; [facility] Work Phone: Erythrocyte distribution width (RBC) [Ratio] 16.6 % Abnormal 12.0 - 15.6 % [facility]; [facility] Work Phone: Hematocrit (Bld) [Volume fraction] 28.3 % Abnormal 34.0 - 46.0 % [facility]; [facility] Work Phone: Hemoglobin (Bld) [Mass/Vol] 8.7 g/dL Abnormal 12.0 - 16.0 g/dL [facility]; [facility]. Work Phone: Lymphocytes (Bld) [#/Vol] 1.50 {x10EE3/UL} Normal 0.80 - 2.80 {x10EE3/UL} [facility]; [facility], [facility]. Work Phone: Lymphocytes/100 WBC (Bld) 41.6 % Normal 20.0 - 45.0 % [facility]; [facility]. Work Phone: MCH (RBC) [Entitic mass] 20 pg Abnormal 27 - 33 pg [facility]; [facility]. Work Phone: MCHC (RBC) [Mass/Vol] 31 {X10_3} Abnormal 32 - 3 6 {X10_3} [facility]; [facility], [facility]. Work Phone: MCV (RBC) [Entitic vol] 65 fL Abnormal 80 - 99 fL [facility]; [facility] Work Phone: Monocytes (Bld) [#/Vol] 0.30 {x10EE3/UL} Normal 0.20 - 1.00 {x10EE3/UL} [facility].; [facility] Work Phone: Monocytes/100 WBC (Bld) 7.4 % Normal 0.0 - 10.0 % [facility]. Work Phone: Morphology Blake (Bld) [Interp] SEE BELOW Normal [facility]; [facility] Work Phone: Neutrophils (Bld) [#/Vol] 1.80 {x10EE3/UL} Normal 1.50 - 7.10 {x10EE3/UL} [facility] Work Phone: Neutrophils/100 WBC (Bld) 49.5 % Normal 46.0 - 76.0 % [facility] Work Phone: Platelet mean volume (Bld) [Entitic vol] 8.8 fL Normal 6.6 - 10.5 fL [facility]; [facility]. Work Phone: Platelets (Bld) [#/Vol] 334 {x10EE3/UL} Normal 150 - 450 {x10EE3/UL} [facility] Work Phone: RBC (Bld) [#/Vol] 4.38 {x_10EE6/UL} Normal 4.10 - 5.30 {x_10EE6/UL} [facility] Work Phone: WBC (Bld) [#/Vol] 3.6 {x_10EE3/UL} Abnormal 4.5 - 10.8 {x_10EE3/UL} [facility].; [facility], [facility]. Work Phone: No Panel Informationon 08-23 AGE 46 {years} Normal [facility].; [facility], [facility]. Work Phone: ALK PHOS 96 U/L Normal 46 - 116 U/L [facility].; [facility], [facility]. Work Phone: CBC + DIFF Normal [facility].; [facility], [facility]. Work Phone: CMP with eGFR Normal [facility].; [facility], [facility]. Work Phone: HYPOCHROM 2+ Normal [facility].; [facility], [facility]. Work Phone: MANUAL DIFF N/A Normal [facility].; [facility], [facility]. Work Phone: MICROCYTES 3+ Normal [facility].; [facility], [facility]. Work Phone: POIKILO 1+ Normal [facility].; [facility], [facility]. Work Phone: Laboratory - Chemistry and C hemistry - challengeon 05-29-2022 Albumin BCP dye [Mass/Vol] 3.4 g/dL Normal 3.2 - 4.8 g/dL [facility].; [facility], [facility]. Albumin/Globulin [Mass ratio] 1.0 {ratio} Normal 0.9 - 1.6 {ratio} [facility], [employer] ALP [Catalytic activity/Vol] 120 U/L Normal 38 - 126 U/L [facility].; [facility], [facility]. ALT No additional P-5'-P [Catalytic activity/Vol] 26 U/L Normal 10 - 49 U/L [facility]; [facility]. ALT With P-5'-P [Catalytic activity/Vol] 26 U/L Normal 10 - 49 U/L [facility].; [facility] AST [Catalytic activity/Vol] 16 U/L Normal 8 - 34 U/L [facility].; [facility]. AST With P-5'-P [Catalytic activity/Vol] 16 U/L Normal 8 - 34 U/L [facility].; [facility] Bilirubin [Mass/Vol] mg/dL Normal 0.20 - 1.20 mg/dL [facility].; [facility], [facility] Calcium [Mass/Vol] 9.0 mg/dL Normal 8.7 - 10. 4 mg/dL [facility]; [facility]. Chloride [Moles/Vol] 106 mmol/L Normal 98 - 11 0 meq/L [facility]; [facility]. Cholesterol [Mass/Vol] 145 mg/dL Normal 50 - 199 mg/dL [facility]; [facility]. Cholesterol in HDL [Mass/Vol] 46 mg/dL Normal 40 - 59 mg/dL [facility].; [facility]. Cholesterol in LDL [Mass/Vol] 77 mg/dL Normal 0 - 129 mg/dL [facility].; [facility]. CO2 [Moles/Vol] 29 mmol/L Normal 22 - 32 meq/L [facility].; [facility], [facility]. Creatinine [Mass/Vol] 0.46 mg/dL Abnormal 0.50 - 1.20 mg/dL [facility]; [facility], [facility] GFR/1.73 sq M.predicted among blacks MDRD (S/P/Bld) [Vol rate/Area] mL/min/{1.73_m2} Normal [facility].; [facility], [facility]. Work Phone: GFR/1.73 sq M.predicted among non-blacks MDRD (S/P/Bld) [Vol rate/Area] mL/min/{1.73_m2} Normal [facility].; [facility], [facility]. Work Phone: Globulin (S) [Mass/Vol] 3.4 g/dL Normal 1.5 - 3.8 g/dL [facility]; [facility], [facility]. Glucose [Mass/Vol] 124 mg/dL Abnormal 70 - 110 mg/dL [facility], [facility] Iron [Mass/Vol] 21 ug/dL Abnormal 50 - 170 ug/dL [facility].; [facility], [facility]. Magnesium [Mass/Vol] 1.8 mg/dL Normal 1.6 - 2 .4 mg/dL [facility].; [facility], [facility]. Potassium [Moles/Vol] 4.0 mmol/L Normal 3.5 - 5.0 meq/L [facility], [facility] Protein [Mass/Vol] 6.8 g/dL Normal 5.7 - 8.2 g/dL [facility].; [facility], [facility]. Sodium [Moles/Vol] 141 mmol/L Normal 136 - 145 meq/L [facility].; [facility], [facility]. Triglyceride [Mass/Vol] 112 mg/dL Normal 3 - 149 mg/dL [facility], [facility]. TSH Qn 3.274 m[IU]/L Normal 0.550 - 4.780 m[iU]/mL [facility]; [facility] Urea nitrogen [Mass/Vol] 12.0 mg/dL Normal 8.0 - 22.0 mg/dL [facility]; [facility] Urea nitrogen/Creatinine [Mass ratio] 26.1 {ratio} Abnormal 10.0 - 22.0 {ratio} [facility]; [facility] Laboratory - Hematology and Cell countson 05-29-2022 Acanthocytes LM Ql (Bld) 1+-1+ Normal [facility]; [facility] Work Phone: Anisocytosis Ql (Bld) 1+-1+ Normal [facility]; [facility] Work Phone: Basophils (Bld) [#/Vol] 0.0 {10^3/mcL} Normal 0.0 - 0.3 {10^3/mcL} [facility]; [facility] Work Phone: Basophils/100 WBC (Bld) 0.4 % Normal 0.0 - 2.5 % [facility]; [facility] Work Phone: Eosinophils (Bld) [#/Vol] 0.1 {10^3/mcL} Normal 0.0 - 0.7 {10^3/mcL} [facility]; [facility] Work Phone: Eosinophils/100 WBC (Bld) 2.6 % Normal 0.0 - 6.0 % [facility]; [facility] Work Phone: Erythrocyte distribution width (RBC) [Ratio] 18.5 % Abnormal 11.5 - 15.5 % [facility]; [facility] Hematocrit (Bld) [Volume fraction] 29.0 % Abnormal 34.0 - 46.0 % [facility]; [facility] Hemoglobin (Bld) [Mass/Vol] 9.0 g/dL Abnormal 12.0 - 16.0 g/dL [facility], [facility] Hypochromia Ql (Bld) 1+-1+ Normal [facility].; [facility], [facility]. Work Phone: Lymphocytes (Bld) [#/Vol] 1.1 {10^3/mcL} Normal 0.9 - 4.3 {10^3/mcL} [facility].; [facility], [facility]. Work Phone: Lymphocytes/100 WBC (Bld) 25.0 % Normal 20.0 - 40.0 % [facility].; [facility], [facility]. Work Phone: MCH (RBC) [Entitic mass] 19.3 pg Abnormal 27.0 - 33.[address] [facility].; [facility], [facility]. MCHC (RBC) [Mass/Vol] 31.0 g/dL Abnormal 32.0 - 36.0 g/dL [facility].; [facility], [facility]. MCV (RBC) [Entitic vol] 62.1 fL Abnormal 80.0 - 99.0 fL [facility].; [facility], [facility]. Microcytes Ql (Bld) 2+-2+ Normal [facility].; [facility], [facility]. Work Phone: Monocytes (Bld) [#/Vol] 0.3 {10^3/mcL} Normal 0.1 - 1.4 {10^3/mcL} [facility].; [facility], [facility]. Work Phone: Monocytes/100 WBC (Bld) 8.0 % Normal 2.0 - 13.0 % [facility].; [facility], [facility]. Work Phone: Neutrophils (Bld) [#/Vol] 2.7 {10^3/mcL} Normal 2.3 - 8.1 {10^3/mcL} [facility] [employer] ROANN Hypejar [facility] [employer] [facility], [employer] Work Phone: Neutrophils/100 WBC (Bld) 64.0 % Normal 50.0 - 75.0 % [facility] [employer].; ROANN Hypejar [facility] [employer] [facility], Inc[employer] Work Phone: Ovalocytes LM Ql (Bld) 1+-1+ Normal [facility] [employer].; ROANN Hypejar [facility] [employer] [facility], [employer]. Work Phone: Platelet mean volume (Bld) [Entitic vol] 9.1 fL Normal 6.6 - 10.[address] [facility] [employer].; ROANN Hypejar [facility] [employer] [facility], [employer]. Platelets (Bld) [#/Vol] 304 {10^3/mcL} Normal 150 - 450 {10^3/mcL} [facility].; [employer] [facility] [employer] [facility], Inc[employer] Platelets LM Ql (Bld) Normal-Adequate Normal [facility].; [employer] [facility] [employer] [facility], Inc[facility] Work Phone: Poikilocytosis LM Ql (Bld) 1+-1+ Normal [facility].; [employer] [facility] [employer] [facility], Inc[facility] Work Phone: RBC (Bld) [#/Vol] 4.66 {10^6/mcL} Normal 4.10 - 5.30 {10^6/mcL} [facility] [employer].; [facility] [employer] [facility], Inc[employer] WBC (Bld) [#/Vol] 4.3 {10^3/mcL} Abnormal 4.5 - 10 .8 {10^3/mcL} [facility] [employer], [employer] ROANN Hypejar [facility] [employer] [facility], [employer]. No Panel Informationon 05-29 Basophil, Absolute 0.0 {10^3/mcL} Normal 0.0 - 0 .3 {10^3/mcL} [facility]. Work Phone: Electrolyte Balance 6.0 meq/L Normal 4.0 - 15 .0 meq/L [facility].; [facility], [facility]. Eosinophil, Absolute 0.1 {10^3/mcL} Normal 0.0 - 0.7 {10^3/mcL} [facility].; [facility], [facility]. Work Phone: Lymphocyte, Absolute 1.1 {10^3/mcL} Normal 0.9 - 4.3 {10^3/mcL} [facility].; [facility], [facility]. Work Phone: Monocyte, Absolute 0.3 {10^3/mcL} Normal 0.1 - 1 .4 {10^3/mcL} [facility].; [facility], [facility]. Work Phone: Neutrophil, Absolute 2.7 {10^3/mcL} Normal 2.3 - 8.1 {10^3/mcL} [facility].; [facility], [facility]. Work Phone: Laboratory - Chemistry and C hemistry - challengeon 11-14-2021 Albumin BCP dye [Mass/Vol] 3.4 g/dL Normal 3.2 - 4.8 g/dL [facility].; [facility], [facility]. Albumin/Globulin [Mass ratio] 0.8 {ratio} Abnormal 0.9 - 1.6 {ratio} [facility].; [facility], [facility]. ALP [Catalytic activity/Vol] 118 U/L Normal 38 - 126 U/L [facility].; [facility], [facility]. ALT No additional P-5'-P [Catalytic activity/Vol] 29 U/L Normal 10 - 49 U/L [facility].; [facility], [facility]. ALT With P-5'-P [Catalytic activity/Vol] 29 U/L Normal 10 - 49 U/L [facility].; [facility]. AST [Catalytic activity/Vol] 30 U/L Normal 8 - 34 U/L [facility].; [facility]. AST With P-5'-P [Catalytic activity/Vol] 30 U/L Normal 8 - 34 U/L [facility].; [facility]. Bilirubin [Mass/Vol] mg/dL Normal 0.20 - 1.20 mg/dL [facility].; [facility] Calcium [Mass/Vol] 9.1 mg/dL Normal 8.7 - 10. 4 mg/dL [facility]; [facility] Chloride [Moles/Vol] 107 mmol/L Normal 98 - 11 0 meq/L [facility].; [facility] CO2 [Moles/Vol] 27 mmol/L Normal 22 - 32 meq/L [facility]; [facility] Creatinine [Mass/Vol] 0.41 mg/dL Abnormal 0.50 - 1.20 mg/dL [facility]; [facility]. GFR/1.73 sq M.predicted among blacks MDRD (S/P/Bld) [Vol rate/Area] mL/min/{1.73_m2} Normal [facility].; [facility] Work Phone: GFR/1.73 sq M.predicted among non-blacks MDRD (S/P/Bld) [Vol rate/Area] mL/min/{1.73_m2} Normal [facility].; [facility], [facility]. Work Phone: Globulin (S) [Mass/Vol] 4.0 g/dL Abnormal 1.5 - 3.8 g/dL [facility]; [facility] Glucose [Mass/Vol] 78 mg/dL Normal 70 - 110 mg/dL [facility]; [facility] Magnesium [Mass/Vol] 2.0 mg/dL Normal 1.6 - 2 .4 mg/dL [facility]; [facility] Potassium [Moles/Vol] 4.8 mmol/L Normal 3.5 - 5.0 meq/L [facility]; [facility] Protein [Mass/Vol] 7.4 g/dL Normal 5.7 - 8.2 g/dL [facility]; [facility] Sodium [Moles/Vol] 138 mmol/L Normal 136 - 145 meq/L [facility]; [facility] Urea nitrogen [Mass/Vol] 11.0 mg/dL Normal 8.0 - 22.0 mg/dL [facility]; [facility] Urea nitrogen/Creatinine [Mass ratio] 26.8 {ratio} Abnormal 10.0 - 22.0 {ratio} [facility]; [facility] Laboratory - Hematology and Cell countson 11-14-2021 Anisocytosis Ql (Bld) 3+-3+ Normal [facility]; [facility] Work Phone: Basophils (Bld) [#/Vol] 0.2 {10^3/mcL} Normal 0.0 - 0.3 {10^3/mcL} [facility]; [facility], [facility] Work Phone: Basophils/100 WBC (Bld) 2.0 % Normal 0.0 - 2.5 % [facility]; [facility], [facility] Work Phone: Sapna cells LM Ql (Bld) 1+-1+ Normal [facility]; [facility]. Work Phone: Eosinophils (Bld) [#/Vol] 0.0 {10^3/mcL} Normal 0.0 - 0.7 {10^3/mcL} [facility].; [facility], [facility]. Work Phone: Eosinophils/100 WBC (Bld) 0.0 % Normal 0.0 - 6.0 % [facility].; [facility]. Work Phone: Erythrocyte distribution width (RBC) [Ratio] % Abnormal 11.5 - 15.5 % [facility].; [facility] Hematocrit (Bld) [Volume fraction] 32.8 % Abnormal 34.0 - 46.0 % [facility].; [facility] Hemoglobin (Bld) [Mass/Vol] 8.8 g/dL Abnormal 12.0 - 16.0 g/dL [facility].; [facility] Hypochromia Ql (Bld) 2+-2+ Normal [facility]; [facility] Work Phone: Lymphocytes (Bld) [#/Vol] 2.6 {10^3/mcL} Normal 0.9 - 4.3 {10^3/mcL} [facility].; [facility], [facility]. Work Phone: Lymphocytes/100 WBC (Bld) 35.0 % Normal 20.0 - 40.0 % [facility].; [facility], [facility]. Work Phone: MCH (RBC) [Entitic mass] 15.5 pg Abnormal 27.0 - 33.[address] [facility].; [facility]. MCHC (RBC) [Mass/Vol] 26.8 g/dL Abnormal 32.0 - 36.0 g/dL [facility] [employer], [facility]. MCV (RBC) [Entitic vol] 57.8 fL Abnormal 80.0 - 99.[address] [facility].; [facility], [facility]. Microcytes Ql (Bld) 3+-3+ Normal [facility].; [facility], [facility]. Work Phone: Monocyte distribution width Auto (Bld) [Entitic vol] Not Performed-Not Performed Normal 0.00 - 20.[address] [address] [facility].; [facility], [facility]. Work Phone: Monocytes (Bld) [#/Vol] 0.4 {10^3/mcL} Normal 0.1 - 1.4 {10^3/mcL} [facility].; [facility], [facility]. Work Phone: Monocytes/100 WBC (Bld) 5.0 % Normal 2.0 - 13.0 % [facility] [employer].; [facility], [facility]. Work Phone: Neutrophils (Bld) [#/Vol] 4.3 {10^3/mcL} Normal 2.3 - 8.1 {10^3/mcL} [facility].; [facility], [facility]. Work Phone: Neutrophils/100 WBC (Bld) 58.0 % Normal 50.0 - 75.0 % [facility].; [facility], [facility]. Work Phone: Ovalocytes LM Ql (Bld) 1+-1+ Normal [facility] [employer] [facility] [employer].; [facility], [facility]. Work Phone: Platelet mean volume (Bld) [Entitic vol] 9.7 fL Normal 6.6 - 10.5 fL [facility] [employer] [facility] [employer].; [facility], [facility]. Platelets (Bld) [#/Vol] 394 {10^3/mcL} Normal 150 - 450 {10^3/mcL} [facility].; [facility] Platelets LM Ql (Bld) Normal-Adequate Normal [facility].; [facility]. Work Phone: Poikilocytosis LM Ql (Bld) 2+-2+ Normal [facility].; [facility]. Work Phone: RBC (Bld) [#/Vol] 5.67 {10^6/mcL} Abnormal 4.10 - 5.30 {10^6/mcL} [facility].; [facility]. WBC (Bld) [#/Vol] 7.5 {10^3/mcL} Normal 4.5 - 10 .8 {10^3/mcL} [facility] [employer].; [facility]. No Panel Informationon 11-14 Electrolyte Balance 4.0 meq/L Normal 4.0 - 15 .0 meq/L [facility].; [facility] Nucleated RBC 0.0 {/100_WBC} Normal [facility].; [facility] Work Phone: Tear Cell 1+-1+ Normal [facility].; [facility] Work Phone: Vital Signs Date Time Vital Sign Value Performing Clinician Faci lity 11-30-2024 08:49-0400 Body height 162.[address] Orlando Snow MD Work Phone: [facility] 11-30-2024 08:49-0400 Body mass index (BMI) [Ratio] 24.3 kg/m2 Dr. Orlando Snow MD Work Phone: [facility] 11-30-2024 08:49-0400 Body temperature 98.4 [degF] Dr. Orlando Snow MD Work Phone: [facility] 11-30-2024 08:49-0400 Body weight 64.[address] Orlando Snow MD Work Phone: [facility] 11-30-2024 08:49-0400 Diastolic blood pressure 81 mm[Hg] Dr. Orlando Snow MD Work Phone: [facility] 11-30-2024 08:49-0400 Heart rate 64 /min Dr. Orlando Snow MD Work Phone: [facility] 11-30-2024 08:49-0400 Respiratory rate 15 /min Dr. Orlando Snow MD Work Phone: [facility] 11-30-2024 08:49-0400 SaO2% (BldA) [Mass fraction] 99 % Dr. Orlando Snow MD Work Phone: [facility] 11-30-2024 08:49-0400 Systolic blood pressure 123 mm[Hg] Dr. Orlando Snow MD Work Phone: [facility] 05-12-2024 13:10-0500 Body height 162.56 cm Jagruti Gonzales RN [facility], [facility].; [facility], [facility]. 05-12-2024 13:10-0500 Body mass index (BMI) [Ratio] 24.03 kg/m2 Jagruti Gonzales RN [facility], [facility].; [facility], [facility]. 05-12-2024 13:10-0500 Body surface area Derived from formula 1.68 m2 Jagruti Gonzales RN [facility], [facility].; [facility], [facility]. 05-12-2024 13:10-0500 Body weight 63.5 kg Jagruti Gonzales RN [facility], [facility].; [facility], [facility]. 05-12-2024 13:10-0500 Diastolic blood pressure 84 mm[Hg] Jagruti Gonzales RN [facility] Comment on above: Patient Position: Sitting; Cuff Location : Left Arm; Cuff Size: Large 05-12-2024 13:10-0500 Heart rate 80 /min Jagruti Gonzales RN [facility] [employer] [facility] Comment on above: Pattern: Regular 05-12-2024 13:10-0500 Systolic blood pressure 128 mm[Hg] Jagruti Gonzales RN [facility] Comment on above: Patient Position: Sitting; Cuff Location : Left Arm; Cuff Size: Large 11-14-2023 10:45-0400 Body height 162.56 cm Regine Overholt [facility] [employer] [facility].; [facility] 11-14-2023 10:45-0400 Body mass index (BMI) [Ratio] 26.09 kg/m2 Regine Overholt [facility] [employer] [facility].; [facility] 11-14-2023 10:45-0400 Body surface area Derived from formula 1.74 m2 Regine Overholt [facility] [employer] [facility], [facility].; [facility] 11-14-2023 10:45-0400 Body weight 68.95 kg Regine Overholt [facility] [employer] [facility], [facility].; [facility] 11-14-2023 10:45-0400 Diastolic blood pressure 64 mm[Hg] [facility]olt [facility] [employer] [facility] Comment on above: Patient Position: Sitting; Cuff Location : Left Arm; Cuff Size: Standard 11-14-2023 10:45-0400 Heart rate 65 /min Regine Overholt [facility], [facility].; [employer] [facility] [employer] [facility] Comment on above: Pattern: Regular 11-14-2023 10:45-0400 Systolic blood pressure 97 mm[Hg] Regine Overholt [facility], [facility].; [facility] [employer] [facility] Comment on above: Patient Position: Sitting; Cuff Location : Left Arm; Cuff Size: Standard 05-09-2023 09:10-0500 Body height 162.56 cm Jagruti Gonzales RN [facility] 05-09-2023 09:10-0500 Body mass index (BMI) [Ratio] 25.4 kg/m2 Jagruti Gonzales RN [facility] 05-09-2023 09:10-0500 Body surface area Derived from formula 1.72 m2 Jagruti Gonzales RN [facility] 05-09-2023 09:10-0500 Body weight 67.13 kg Jagruti Gonzales RN [facility], [facility]. 05-09-2023 09:10-0500 Diastolic blood pressure 74 mm[Hg] Jagruti Gonzales RN [facility] Comment on above: Patient Position: Sitting; Cuff Location : Left Arm; Cuff Size: Large 05-09-2023 09:10-0500 Heart rate 72 /min Jagruti Gonzales RN [facility] Comment on above: Pattern: Regular 05-09-2023 09:10-0500 Systolic blood pressure 115 mm[Hg] Jagruti Gonzales RN [facility] Comment on above: Patient Position: Sitting; Cuff Location : Left Arm; Cuff Size: Large 11-15-2022 14:14-0400 Body height 162.56 cm Reina Max RN [facility] 11-15-2022 14:14-0400 Body mass index (BMI) [Ratio] 24.55 kg/m2 Reina Max RN [facility] 11-15-2022 14:14-0400 Body surface area Derived from formula 1.7 m2 Reina Max RN [facility] 11-15-2022 14:14-0400 Body weight 64.86 kg Reina Max RN [facility] 11-15-2022 14:14-0400 Diastolic blood pressure 80 mm[Hg] Reina Max RN [facility] Comment on above: Patient Position: Sitting; Cuff Location : Left Arm; Cuff Size: Large 11-15-2022 14:14-0400 Heart rate 75 /min Reina Max RN [facility] [employer] [employer] [facility] Comment on above: Pattern: Regular 11-15-2022 14:14-0400 Systolic blood pressure 129 mm[Hg] Reina Max RN [facility] [employer] [facility] [employer] [facility] Comment on above: Patient Position: Sitting; Cuff Location : Left Arm; Cuff Size: Large 05-29-2022 13:08-0500 Body height 162.56 cm Reina Max RN [facility] 05-29-2022 13:08-0500 Body mass index (BMI) [Ratio] 24.37 kg/m2 Reina Max RN [facility] 05-29-2022 13:08-0500 Body surface area Derived from formula 1.69 m2 Reina Max RN [facility] 05-29-2022 13:08-0500 Body weight 64.41 kg Reina Max RN [facility] 05-29-2022 13:08-0500 Diastolic blood pressure 83 mm[Hg] Reina Max RN [facility] [employer] [facility] Comment on above: Patient Position: Sitting; Cuff Location : Left Arm; Cuff Size: Large 05-29-2022 13:08-0500 Heart rate 80 /min Reina Max RN [facility], [facility].; [facility], [facility]. Comment on above: Pattern: Regular 05-29-2022 13:08-0500 Systolic blood pressure 124 mm[Hg] Reina Max RN [facility], [facility]. Comment on above: Patient Position: Sitting; Cuff Location : Left Arm; Cuff Size: Large 03-19-2022 14:25-0500 Body height 162.56 cm [facility], [facility]. 03-19-2022 14:25-0500 Body mass index (BMI) [Ratio] 23.17 kg/m2 [facility].; [facility], [facility]. 03-19-2022 14:25-0500 Body surface area Derived from formula 1.66 m2 [facility].; [facility], [facility]. 03-19-2022 14:25-0500 Body temperature 98.3 [degF] [facility].; [facility], [employer]. Comment on above: Method: Oral 03-19-2022 14:25-0500 Body weight 61.24 kg [facility].; [facility] 03-19-2022 14:25-0500 Diastolic blood pressure 68 mm[Hg] [facility].; [facility] [employer] Comment on above: Patient Position: Sitting; Cuff Location : Left Arm; Cuff Size: Standard 03-19-2022 14:25-0500 Heart rate 84 /min [facility].; [facility], [employer]. Comment on above: Pattern: Regular 03-19-2022 14:25-0500 Inhaled oxygen concentration 21 % [facility].; [facility], [employer]. Comment on above: Room air 03-19-2022 14:25-0500 SaO2% (BldA) [Mass fraction] 98 % [facility] [employer] [employer] 03-19-2022 14:25-0500 Systolic blood pressure 106 mm[Hg] Letitia Perez [facility] [employer] [facility], [employer]. Comment on above: Patient Position: Sitting; Cuff Location : Left Arm; Cuff Size: Standard 11-14-2021 10:25-0400 Body height 162.56 cm CASSIE RYAN RN [facility] [employer] [facility], [employer] [employer] 11-14-2021 10:25-0400 Body mass index (BMI) [Ratio] 24.2 kg/m2 CASSIE RYAN RN [facility], [employer].; [facility] [employer]. 11-14-2021 10:25-0400 Body surface area Derived from formula 1.69 m2 CASSIE RYAN RN [facility] [employer] [facility], [employer] [facility] [facility], [employer]. 11-14-2021 10:25-0400 Body weight 63.96 kg CASSIE RYAN RN [facility] [employer] [facility], [employer] [employer] [facility] 11-14-2021 10:25-0400 Diastolic blood pressure 78 mm[Hg] CASSIE RYAN RN [facility] [employer] [employer]. Comment on above: Patient Position: Sitting; Cuff Location : Left Arm; Cuff Size: Standard 11-14-2021 10:25-0400 Heart rate 75 /min CASSIE RYAN RN [facility] [employer]. Comment on above: Pattern: Regular 11-14-2021 10:25-0400 Systolic blood pressure 117 mm[Hg] CASSIE RYAN RN [facility] [facility] [employer]. Comment on above: Patient Position: Sitting; Cuff Location : Left Arm; Cuff Size: Standard Encounters Encounter Date Encounter Type Care Provider Facility Start: 11-30-[address] Boaz Baker MD -[facility] Work Phone: Start: 11-30-2024 End: 11-30-[address] Orlando Snow MD Work Phone: -[facility] Start: 11-30-2024 End: 11-30-[address] Boaz Baker MD -[facility] Work Phone: Start: 07-09-2024 End: 07-09-2024 Medication Refill/Order ORLANDO SNOW [facility] [employer] Start: 05-30-2024 End: 05-30-2024 Patient encounter procedure [facility]LANDO SNOW [facility] [employer] Start: 05-21-2024 End: 05-21-2024 ambulatory ORLANDO SNOW [facility] Start: 05-12-2024 End: 05-12-2024 Office outpatient visit 10 minutes ORLANDO SNOW [facility] [employer] Start: 05-05-2024 End: 05-05-2024 ambulatory [facility] Start: 04-20-2024 ambulatory [facility] Start: 11-30-2023 End: 11-30-[facility]23 [facility] Start: 11-14-2023 End: 11-14-2023 Office outpatient visit 10 minutes [facility]LANDO SNOW [facility] Start: 10-11-2023 End: 10-11-2023 ambulatory BELINDA [facility] Start: 09-06-2023 End: 09-06-2023 ambulatory [facility] Start: 08-30-2023 End: 08-30-2023 Emergency department patient visit LUCILA JULIEN [facility] Start: 08-30-2023 End: 08-30-2023 Emergency department [facility] Start: 05-09-2023 End: 05-09-2023 Office outpatient visit 10 minutes ORLANDO SNOW MD Work Phone: [facility] [employer]. 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 Start: 05-29-2022 End: 05-29-2022 Office outpatient visit 10 minutes ORLANDO SNOW MD Work Phone: [facility] [employer] Start: 03-19-2022 End: 03-19-2022 Office outpatient visit 10 minutes ORLANDO SNOW MD Work Phone: [facility] [employer] Start: 12-15-2021 End: 12-15-2021 Medication Refill/Order ORLANDO SNOW MD Work Phone: [facility] [employer] Start: 11-14-2021 End: 11-14-2021 Transitional care manage srvc 7 day discharge ORLANDO SNOW MD Work Phone: [facility] [employer] Procedures Date Procedure Procedure Detail Performing Clinician Start: 11-14-2023 End: 11-14-2023 Dischrg meds reconciled w/current med list ORLANDO SNOW MD Work Phone: Start: 08-31-2023 Urinalysis LUCILA GUAN Comment on above: Result Comment: URIN ALYSIS Performed By: #### [id number] #### [facility],[address] [place] [address] Start: 11-15-2022 End: 11-15-2022 Dischrg meds reconciled [...] Date Care Activity Detail Author Start: 05-21-2024 [facility] visit, estab pt Medical; ESTABLISHED PATIENT ROUTINE VISIT - [employer] Start: 21-May-2024 11:00-05:00 MD ORLANDO SNOW Appointment Request [employer] Start: 05-12-2024 Mri any jt lower ext rem w/o contrast matrl MRI KNEE W/O CONTRAST ([id number]) Start: 12-May-2024 Intent Comments: right [facility] [employer]; [employer] Comment on above: right Start: 11-07-2023 [facility], [facility] [employer] Blood ammonia measurement Wo ronal [facility] carBAMazepine [Mass/volume] in Serum or Plasma [facility] Complete blood count [facility] Comprehensive metabo lic 2000 panel - Serum or Plasma [facility] Ferritin [Mass/volum e] in Serum or Plasma [facility] Folic acid measureme nt, RBC [facility] Iron [Mass/mass] in Unspecified specimen [facility] Magnesium measurement oste r [facility] MR Brain WO and W contrast IV [facility] Phenytoin [Mass/volu me] in Serum or Plasma [facility] Thiamine measurement [facility] Thyroid stimulating hormone measurement [facility] Vitamin B12 measurement os [address] [facility] Vitamin B6 measurement [facility] Vitamin D, 1,25-dihy droxy measurement [facility] Immunizations Immunization Date Immunization Notes Care Provider Fa dev influenza virus vaccine, unspecified formulation ORLANDO SNOW MD Work Phone: [facility] [employer]; [facility] Comment on above: Refused. 03/19/2022 influenza virus vaccine, unspecified formulation ORLANDO SNOW MD Work Phone: [facility]; [facility]. Comment on above: Refused. 03/19/2022 Payers Date Payer Category Payer Unknown [id number] 2022 Self-pay [id number] 2022 Unknown [id number] 1975 Unknown [id number] 2.16.8 [id number] 1977 Unknown [id number] 2.16.8 [id number] 1977 Unknown [id number] 2.16.8 [id number] 1977 Unknown [id number] 2.16.8 [id number] 1977 Unknown [id number] 2.16.8 [id number] 1977 Unknown [id number] 2.16.8 [id number] 1977 Unknown [id number] 2.16.8 [id number] 1977 Unknown [id number] 2.16.8 [id number] 1977 Unknown [id number] 2.16.8 40.1.987494.3.579.2. 1977 Unknown [id number] 2.16.8 40.1.930188.3.579.2. 1977 Unknown [id number] 2.16.8 40.1.951920.3.579.2. 1977 Unknown [id number] 2.16.8 [id number] Unknown [id number] 2.16.8 [id number] Unknown Social History Date Type Detail Facility [facility] Work Phone: Start: 1975 Sex Assigned At Female W [facility] Alcohol Use: Alcohol Use: ; N o Alcohol Use. [facility] [employer] [facility], [facility]. Tobacco use: Tobacco use: ; N ever smoker. [facility] [employer] [facility], [facility]. Never smoked tobacco [facility] [employer].; [facility], [facility]. Work Phone: [facility] ever smoked [facility] Work Phone: Evaluation note Note Date & Type Note Facility Evaluation note No assessment information availa ble [facility] Work Phone: Evaluation note Note Date & Type Note Facility Evaluation note Diagnosis Onset Date Resolution Epilepsy acute November 30 025 8:51am [facility] Work Phone: Reason for referral (narrative) Note Date & Type Note Facility Reason for referral (narrative) No reason for referral information available [facility] Work Phone: Summary Purpose Family History No [...] section and content) DATE CREATED AUTHOR 11/10/2022 [facility] DATE CREATED AUTHOR AUTHOR'S ORGANIZ ATION 04/18/2023 [facility] ([place]) DATE CREATED AUTHOR AUTHOR'S ORGANIZ ATION 09/01/2023 [facility] DATE CREATED AUTHOR AUTHOR'S ORGANIZ ATION 05/23/2024 [facility] FOR RECORDS PERTAINING TO PATIENTS WHO ARE [...] BE BASED ON THE PRIMARY CLINICAL RECORDS. [employer] provides no warranty or guarantee of the accuracy or completeness of information in this document.
[2024-11-30 12:05] LABS: Hematocrit 35.9 % (37-47); Hemoglobin 10.9 g/dL (12.0-15.0); Mean Corp Hgb Conc 30.4 g/dL (32-36); Mean Corpuscular Volume 72.7 fL (81-99); Mean Platelet Vol. 11.0 fl (6.2-12.0); Platelet Count 237 K/mm3 (150-450); RBC Distribution Width CV 15.0 % (11.6-14.6); RBC Distribution Width SD 39.0 fl (35.1-43.9); Red Blood Count 4.94 M/mm3 (4.2-5.4); White Blood Count 5.0 K/mm3 (4.4-11.0)
[2024-11-30 12:20] LABS: Ammonia 27.0 umol/L (11-51); Carbamazepine (Tegretol) 6.3 ug/mL (4.0-12.0)
[2024-11-30 13:23] LABS: Ferritin 316 ng/mL (22-378); Iron 103 ug/dL (50-170); Magnesium 2.3 mg/dL (1.5-2.2); Vitamin B12 743 pg/mL (180-914)
[2024-11-30 13:26] LABS: AST(SGOT) 19 U/L (<=31); Alanine Aminotransfer ALT/SGPT 21 U/L (<=34); Albumin, Serum 4.3 g/dL (3.5-5.0); Alkaline Phosphatase 118 U/L (35-104); Anion Gap 13 (5-15); BUN 16 mg/dL (4-19); BUN/Creat Ratio 37.0 RATIO (10-20); Calcium,Total 9.3 mg/dL (7.6-11.0); Carbon Dioxide 21.7 mmol/L (21.0-32.0); Chloride 105 mmol/L (98-108); Globulin 3.1 g/dL (2.2-4.2); Glucose 88 mg/dL (70-99); Potassium 3.8 mmol/L (3.3-5.1)
[2024-12-03 12:09] LABS: Vitamin D 1,25-Dihydroxy 54.4 pg/mL (24.8-81.5)
== END | disposition home or self-care (01) ==
PROVIDERS: PCP Family Medicine; Referring Provider Psychiatry & Neurology Neurology; Visit Provider Psychiatry & Neurology Neurology
DX: G40.909 Epilepsy, unspecified, not intractable, without status epilepticus (principal); Z86.2 Personal history of diseases of the blood and blood-forming organs and certain disorders involving the immune mechanism
CPT/HCPCS: 36415; 80053; 80156; 80185; 82140; 82607; 82652; 82728; 82747; 83540; 83735; 84207; 84425; 84443; 85014; 85027

== ENCOUNTER → 2024-12-23 | Outpatient (CLI) | payer SELFPAY, OTHER ==
--- NOTE | 2024-12-23 13:04 | MRI_ITS ---
PROCEDURE: BRAIN W/WO CONTRAST 12/23/2024 REASON FOR EXAM: EPILEPSY; R HOMONYMOUS HEMIANOPSIA; CEREBRAL PALSY TECHNIQUE: Procedure Code: MRIBRWW Modality: MR Procedure: BRAIN W/WO CONTRAST Multiplanar and multisequence images were obtained. CONTRAST: Clariscan VOLUME: 20 mL COMPARISON: none FINDINGS: No intracerebral or extra-axial hematomas or enhancing masses. No hyperacute or acute infarctions could be depicted. Normal MRI appearance of the cerebral and cerebellar parenchymal signals. Normal MRI appearance of different anatomical parts of the brain stem. Normal appearance of the ventricular system. No shift of midline structures. Right middle ear cleft and bilateral mastoid air cels fluid signal, right more evident than left. Normal MRI appearance of the cerebellopontine angles with no obvious masses. Increased transverse diameter of the left eye globe. Normal MRI appearance of orbital structures, right globe, optic nerves, optic chiasm, optic tracts and optic radiations. Scanned paranasal sinuses show no obvious abnormalities. MRI/Brain W/WO Contrast IMPRESSION: Unremarkable study of the brain. No acute infarcts, intracerebral or extra-axia l hematomas or enhancing masses. Right otitis media and bilateral mastoiditis. Increased transverse diameter of the left eye globe. Reading [facility]
== END | disposition home or self-care (01) ==
LOC: MRI 12:59
PROVIDERS: PCP Family Medicine; Referring Provider Psychiatry & Neurology Neurology; Visit Provider Psychiatry & Neurology Neurology
DX: G40.909 Epilepsy, unspecified, not intractable, without status epilepticus (principal)
CPT/HCPCS: 70553; A9575; A4216

== ENCOUNTER → 2024-12-28 | Outpatient (CLI) | payer OTHER, SELFPAY | END | disposition home or self-care (01) | PROVIDERS: PCP Family Medicine; Referring Provider Psychiatry & Neurology Neurology; Visit Provider Psychiatry & Neurology Neurology | DX: G40.909 Epilepsy, unspecified, not intractable, without status epilepticus (principal); G80.9 Cerebral palsy, unspecified | CPT/HCPCS: 95819 ==

== ENCOUNTER → 2025-03-04 | Outpatient (CLI) | payer OTHER, SELFPAY ==
[2025-03-04 10:44] LABS: Ammonia 34.4 umol/L (11-51)
[2025-03-06 09:08] LABS: KEPPRA (LEVETIRACETAM) 7.6 ug/mL (10.0-40.0)
== END | disposition home or self-care (01) ==
LOC: MTLAB 09:17
PROVIDERS: PCP Family Medicine; Referring Provider Psychiatry & Neurology Neurology; Visit Provider Psychiatry & Neurology Neurology
DX: G40.909 Epilepsy, unspecified, not intractable, without status epilepticus (principal)
CPT/HCPCS: 36415; 80177; 82140